=== PATIENT | female | born 1990 | race Caucasian/White ===

== ENCOUNTER 2021-07-12 10:50 | Emergency (ER) | payer OTHER, SELFPAY ==
--- NOTE | ~2021-07-12 | XR_ITS ---
EXAMINATION: XR chest 2V DATE: 07/12/2021 12:21 INDICATION: Chest discomfort. TECHNIQUE: Frontal and lateral views of the chest were obtained. COMPARISON: None. FINDINGS: The chest demonstrates clear lungs without pneumonia, pleural effusion, or pneumothorax. Th e heart size is normal. IMPRESSION: 1. No acute cardiopulmonary disease. Reviewed, dictated and finalized at location B.
--- NOTE | ~2021-07-12 | US_ITS ---
EXAMINATION: US venous doppler [facility] DATE: 07/12/2021 13:45 INDICATION: Lower limb swelling. TECHNIQUE: Grayscale ultrasound images without and with compression and Doppler ultrasound images of the bilateral lower extremity veins were obtained. COMPARISON: None. FINDINGS: The visualized portions of right common femoral vein, profunda (deep) femoral vein, femoral vein, pop liteal vein, peroneal veins, posterior tibial veins, and greater saphenous vein outflow are patent. The visualized portions of left common femoral vein, profunda femoral vein, femoral vein, popliteal v ein, peroneal veins, posterior tibial veins, and greater saphenous vein outflow are patent. IMPRESSION: 1. No deep venous thrombosis. Reviewed, dictated and finalized at location B.
--- NOTE | 2021-07-12 10:52 | ECG_ITS ---
Measurements Intervals [place] Rate: 100 P: 58 [place]: 150 QRS: 13 QRSD: 103 T: 44 QT: 337 QTc: 435 Interpretive Statements SINUS TACHYCARDIA MINOR RV CONDUCTION ABNORMALITY OTHERWISE NORMAL ECG NO PREVIOUS ECG AVAILABLE FOR COMPARISON Electronically Signed On 07-12-2021 15:26:05 CDT by Cecilio Fleming M.D.
[2021-07-12 11:08] VITALS: BP 124/86; PULSE 73; RESP 16; TEMP 36.8; O2SAT 97
[2021-07-12 11:23] VITALS: BP 132/89; PULSE 79; PULSE 81; RESP 17; O2SAT 97
[2021-07-12 12:06] LABS: Alanine Aminotransferase 76 U/L (4-35); Albumin Level 4.4 g/dL (3.5-5.1); Alkaline Phosphatase 84 U/L (38-126); Anion Gap 8 mmol/L (8-16); Aspartate Amino Transferase 58 U/L (14-36); Bilirubin,Total 0.1 mg/dL (0.2-1.3); Blood Urea Nitrogen 13 mg/dL (7-17); Calcium 8.8 mg/dL (8.4-10.2); Carbon Dioxide 26 mmol/L (22-30); Chloride 102 mmol/L (98-107); Estimated CRCL calculation 158 ml/min; Estimated Glomerular Filt Rate > 60; Glucose 124 mg/dL (65-110); Lipase 52 U/L (23-300); Sodium 136 mmol/L (137-145)
[2021-07-12 12:09] LABS: Prothrombin Time 12.6 Seconds (11.1-14.7)
[2021-07-12 12:10] LABS: Partial Thromboplastin Time 37.4 SECONDS (22.3-36.8)
[2021-07-12 12:18] LABS: Troponin I < 0.012 ng/mL (0.000-0.034)
[2021-07-12 12:59] LABS: Basophils Absolute Auto 0.1 K/mm3 (0.0-0.1); Basophils Percent Auto 0.8 % (0.2-1.2); Eosinophils Absolute Auto 0.2 K/mm3 (0-0.3); Eosinophils Percent Auto 2.3 % (0-4.4); Hematocrit 43.8 % (37.0-47.0); Hemoglobin 14.8 g/dL (12.0-15.0); Immature Granulocyte Absolute 0.03 K/mm3 (0.00-0.031); Immature Granulocyte Percent A 0.3 % (0-0.5); Lymphocytes Absolute Auto 3.07 K/mm3 (0.9-3.2); Lymphocytes Percent Auto 31.7 % (18.3-44.2); Mean Corpuscular HGB Conc 33.8 g/dl (32-36); Mean Corpuscular Volume 94.8 fl (80-100); Mean Platelet Volume 10.2 fl (7.4-10.4); Monocytes Absolute Auto 0.7 K/mm3 (0.1-0.6); Monocytes Percent Auto 7.2 % (2.6-8.5); Neutrophils Absolute Auto 5.6 K/mm3 (1.3-6.7); Neutrophils Percent Auto 57.7 % (45.5-73.1); Platelet Count Result 428 k/mm3 (150-375); Red Blood Count 4.62 M/mm3 (4.2-5.4); Red Cell Distribution Width 12.1 % (11.5-14.5); White Blood Count 9.7 K/mm3 (4.5-10.0)
[2021-07-12 13:00] VITALS: BP 115/88; PULSE 84; RESP 18; O2SAT 97
--- NOTE | 2021-07-12 14:11 | ED.GENADULT ---
HPI - General Adult General Chief complaint: Chest Pain Stated complaint: chest pain Time Seen by Provider: 07/12/21 12:02 History of Present Illness HPI narrative: Patient is a 31-year-old female who presents ER with concerns for chest pain. Symptoms occurred last week. The left-sided underarm. Going into her shoulder. Cramping in nature. She also had some central pain at that time. Symptoms occurred after she had taken a trip to [facility]. She reports when she returned she had new lower extremity edema. Her primary care doctor put her on Lasix to get rid of the edema. She reports this week some of the edema has returned. She is also having some tightness in her left lower leg. No orthopnea or hemoptysis. No past history of DVT/PE. No family history of CAD outside of her grandfather. Related Data Home Medications Medication Instructions Recorded Confirmed citalopram 20 mg PO DAILY 07/12/21 07/12/21 furosemide [Lasix] 40 mg PO PRN PRN 07/12/21 07/12/21 metformin 500 mg PO DAILY 07/12/21 07/12/21 Allergies Allergy/AdvReac Type Severity Reaction Status Date / Time Sulfa (Sulfonamide Allergy Rash Verified 07/12/21 11:25 Antibiotics) Review of Systems Review of Systems: All systems reviewed & are unremarkable except as noted in HPI and below Constitutional: Constitutional: Denies chills, Denies fever(s) and Denies weakness ENT: Denies nasal congestion and Denies sore throat Cardiovascular: Cardiovascular: Reports chest pain, Denies rapid heart rate and Reports radiating jaw, neck or arm pain Respiratory: Respiratory: Denies cough, Denies dyspnea and Denies wheezing Gastrointestinal: Gastrointestinal: Denies abdominal pain, Denies nausea and Denies vomiting Musculoskeletal: Comments: left leg tightness and bilateral edema Neurologic: Denies headache(s), Denies focal weakness and Denies numbness PMFSH Past Medical History Medical History (Updated 07/12/21 @ 14:36 by Jignesh Bowden MD) Depression Surgical History Surgical History (Updated 07/12/21 @ 14:36 by Jignesh Bowden MD) No pertinent past surgical history Social History Social History (Updated 07/12/21 @ 14:36 by Jignesh Bowden MD) Smoking status: Never smoker Exam Narrative: GENERAL: Well-appearing, well-nourished, and in no acute distress. HEAD: Normocephalic, atraumatic. ENT: Mucous membranes moist. CHEST: Clear to auscultation. No respiratory distress. HEART: Regular rate and rhythm. Normal peripheral pulses. ABDOMEN: Soft, nontender, nondistended. EXTREMITIES: Normal range of motion. No edema. SKIN: Warm, dry, no rash. NEURO: Alert and oriented x3. PSYCH: Normal mood and affect. Course Course Emergency Course: Patient informed of results. Given reassurance. Recommend anti-inflammatories for home. Troponin negative x2. No DVT on ultrasound. Vital Signs Vital signs: Vital Signs Temperature 98.2 F 07/12/21 11:08 Pulse Rate 73 07/12/21 11:08 Respiratory Rate 16 07/12/21 11:08 Blood Pressure 124/86 07/12/21 11:08 Pulse Oximetry 97 07/12/21 11:08 Temperature 98.2 F 07/12/21 11:08 Pulse Rate 84 07/12/21 13:00 Respiratory Rate 18 07/12/21 13:00 Blood Pressure 115/88 07/12/21 13:00 Pulse Oximetry 97 07/12/21 13:00 Medical Decision Making Vital Signs Vital Signs: Vital Signs Temperature 98.2 F 07/12/21 11:08 Pulse Rate 73 07/12/21 11:08 Respiratory Rate 16 07/12/21 11:08 Blood Pressure 124/86 07/12/21 11:08 Pulse Oximetry 97 07/12/21 11:08 Temperature 98.2 F 07/12/21 11:08 Pulse Rate 84 07/12/21 13:00 Respiratory Rate 18 07/12/21 13:00 Blood Pressure 115/88 07/12/21 13:00 Pulse Oximetry 97 07/12/21 13:00 Lab Data Result diagrams: 07/12/21 11:50 07/12/21 11:50 Labs: Lab Results 07/12/21 07/12/21 07/12/21 Range/Units 11:50 11:50 11:50 WBC 9.7 (4.5-10.0) K/mm3 RBC 4
[2021-07-12 14:25] LABS: Troponin I < 0.012 ng/mL (0.000-0.034)
[2021-07-12 14:59] VITALS: BP 117/93; PULSE 88; RESP 20; O2SAT 99
== END 2021-07-12 14:41 | disposition home or self-care (01) ==
PROVIDERS: Emergency Medicine; Emergency Provider Emergency Medicine; PCP Family Medicine
DX: R07.89 Other chest pain (principal); F32.A Depression, unspecified; Z79.84 Long term (current) use of oral hypoglycemic drugs; R00.0 Tachycardia, unspecified
CPT/HCPCS: 36415; 71046; 80053; 83690; 84484; 85025; 85610; 85730; 93005; 93970; 99284

== ENCOUNTER 2022-06-20 07:47 | Outpatient (CLI) | payer OTHER, SELFPAY ==
[2022-06-20 09:22] LABS: Basophils Absolute Auto 0.1 K/mm3 (0.0-0.1); Basophils Percent Auto 1.2 % (0.2-1.2); Eosinophils Absolute Auto 0.3 K/mm3 (0-0.3); Eosinophils Percent Auto 3.4 % (0-4.4); Hematocrit 41.6 % (37.0-47.0); Hemoglobin 14.1 g/dL (12.0-15.0); Immature Granulocyte Absolute 0.02 K/mm3 (0.00-0.031); Immature Granulocyte Percent A 0.3 % (0-0.5); Lymphocytes Absolute Auto 2.31 K/mm3 (0.9-3.2); Lymphocytes Percent Auto 31.8 % (18.3-44.2); Mean Corpuscular HGB Conc 33.9 g/dl (32-36); Mean Corpuscular Volume 94.3 fl (80-100); Mean Platelet Volume 10.2 fl (7.4-10.4); Monocytes Absolute Auto 0.4 K/mm3 (0.1-0.6); Monocytes Percent Auto 5.4 % (2.6-8.5); Neutrophils Absolute Auto 4.2 K/mm3 (1.3-6.7); Neutrophils Percent Auto 57.9 % (45.5-73.1); Platelet Count Result 413 k/mm3 (150-375); Red Blood Count 4.41 M/mm3 (4.2-5.4); Red Cell Distribution Width 12.1 % (11.5-14.5); White Blood Count 7.3 K/mm3 (4.5-10.0)
[2022-06-20 09:38] LABS: Alanine Aminotransferase 37 U/L (6-35); Albumin Level 4.3 g/dL (3.5-5.1); Alkaline Phosphatase 78 U/L (38-126); Anion Gap 7 mmol/L (8-16); Aspartate Amino Transferase 28 U/L (14-36); Bilirubin,Total 0.5 mg/dL (0.2-1.3); Blood Urea Nitrogen 12 mg/dL (7-17); Carbon Dioxide 27 mmol/L (22-30); Chloride 102 mmol/L (98-107); Cholesterol 192 mg/dL (0-200); Estimated Glomerular Filt Rate > 60; Glucose 122 mg/dL (65-110); HDL Direct 43 mg/dL; Sodium 136 mmol/L (137-145); Triglycerides 143 mg/dL (<150)
[2022-06-20 09:49] LABS: LDL Cholesterol Direct 111 mg/dL
[2022-06-25 04:48] LABS: FSH 5.8 mIU/mL (***); LH 11.7 mIU/mL (***)
[2022-06-25 10:23] LABS: Testosterone Total 62 ng/dL (2-45)
[2022-06-29 15:37] LABS: Estrogen 379.6 pg/mL
== END 2022-06-20 07:48 | disposition home or self-care (01) ==
LOC: ANHLAB 07:51
PROVIDERS: PCP Family Medicine; Visit Provider Family Medicine
DX: Z13.6 Encounter for screening for cardiovascular disorders (principal); N94.6 Dysmenorrhea, unspecified
CPT/HCPCS: 36415; 80053; 80061; 82672; 83001; 83002; 84403; 84443; 85025

== ENCOUNTER 2022-09-25 16:54 | Emergency (ER) | payer OTHER, SELFPAY ==
[2022-09-25 17:01] VITALS: BP 124/82; PULSE 93; RESP 16; TEMP 36.1; O2SAT 98
--- NOTE | 2022-09-25 17:14 | ED.GENADULT ---
HPI - General Adult General Chief complaint: Upper Respiratory Infection Stated complaint: Pain in ear & sinus drainage Time Seen by Provider: 09/25/22 17:06 Source: patient and RN notes reviewed Mode of arrival: ambulatory Limitations: no limitations History of Present Illness HPI narrative: Patient presents today complaining of right ear pain and postnasal drip x3 days. Denies any additional symptoms to include cough, sore throat, fever, congestion, rhinorrhea. Rates a 5/10 and has tried no medication for symptoms prior to arrival. She did try wax softening drops without relief of symptoms. Related Data Home Medications Medication Instructions Recorded Confirmed citalopram 20 mg tablet 20 mg PO DAILY 07/12/21 09/25/22 metformin 500 mg tablet 500 mg PO DAILY 07/12/21 09/25/22 spironolactone 50 mg tablet 50 mg DIRECTED 09/25/22 09/25/22 Allergies Allergy/AdvReac Type Severity Reaction Status Date / Time cephalexin [From Keflex] Allergy Intermediate Hives Verified 09/25/22 16:59 Sulfa (Sulfonamide Allergy Intermediate Hives Verified 09/25/22 17:00 Antibiotics) Review of Systems Review of Systems: CONSTITUTIONAL: Denies body aches, fever, chills, or sweats. EYES: Denies visual changes, redness, or discharge. ENT: Denies rhinorrhea, congestion, sore throat. + right ear pain, postnasal drip CARDIOVASCULAR: Denies chest pain, palpitations, or edema. RESPIRATORY: Denies cough or dyspnea. GASTROINTESTINAL: Denies abdominal pain, nausea, vomiting, or diarrhea. GENITOURINARY: Denies dysuria or hematuria. SKIN: Denies rash, itching, or wounds. MUSCULOSKELETAL: Denies back pain, joint pain, or myalgia. NEUROLOGIC: Denies headache, numbness, tingling, or weakness. PSYCH: Denies depression or anxiety. [facility] Past Medical History Medical History Depression Surgical History Surgical History No pertinent past surgical history Social History Social History Smoking status: Never smoker Comments At time of signature, I have reviewed and agree with nursing past medical, surgical, social and family history unless otherwise noted. Please see nursing chart for further information. There is no relevant family history pertinent to the presenting complaint Exam Narrative: GENERAL: Well-appearing, well-nourished, and in no acute distress. HEAD: Normocephalic, atraumatic. EYES: EOMI. No redness or drainage. Conjunctivae normal. ENT: Mucous membranes pink and moist. Nares clear. No rhinorrhea. TMs normal bilaterally. Patient has a small area to the intertragal notch that is mildly erythematous and edematous, and tender to palpation. The remainder of the ear canal appears normal. Throat normal. Uvula midline. NECK: Normal AROM. Supple. No lymphadenopathy. CHEST: No respiratory distress. Clear to auscultation. HEART: Regular rate and rhythm. No murmur appreciated. Normal peripheral pulses. EXTREMITIES: Normal range of motion. No edema. SKIN: Warm, dry, no rash. Capillary refill normal. Normal skin turgor. NEURO: No focal deficits. Alert and oriented x3. Gait steady. PSYCH: Normal affect. No signs of depression or anxiety. Course Course Level of Care: Express Care Visit Vital Signs Vital signs: Vital Signs Temperature 97 F L 09/25/22 17:01 Pulse Rate 93 09/25/22 17:01 Respiratory Rate 16 09/25/22 17:01 Blood Pressure 124/82 09/25/22 17:01 Pulse Oximetry 98 09/25/22 17:01 Temperature 97 F L 09/25/22 17:01 Pulse Rate 93 09/25/22 17:01 Respiratory Rate 16 09/25/22 17:01 Blood Pressure 124/82 09/25/22 17:01 Pulse Oximetry 98 09/25/22 17:01 Reviewed. Pt has been instructed to follow up with her PCP regarding her elevated blood pressure today. Medical Decision Making MDM Lindaati
== END 2022-09-25 17:26 | disposition home or self-care (01) ==
PROVIDERS: Emergency Provider Nurse Practitioner
DX: H60.11 Cellulitis of right external ear (principal); R09.82 Postnasal drip; F32.A Depression, unspecified
CPT/HCPCS: 99213; G0463

== ENCOUNTER 2022-10-26 06:55 | Emergency (ER) | payer OTHER, SELFPAY ==
[2022-10-26] VITALS (13 sets, daily range): BP systolic 123–144; BP diastolic 68–92; PULSE 79; RESP 18; TEMP 36.2; O2SAT 95–99
--- NOTE | ~2022-10-26 | CT_ITS ---
EXAMINATION: CT abdomen pelvis wo con DATE: 10/26/2022 08:42 INDICATION: Right flank pain and hematuria TECHNIQUE: Computed tomography (CT) of the abdomen and pelvis was performed without intravenous contr ast. Automated exposure control and iterative reconstruction technique were employed. The dose-length product was 1621.85 mGy-cm. COMPARISON: None FINDINGS: Lung bases are clear. Heart size is normal. No pericardial or pleural effusion. Diffuse hepatic steat osis with peripheral regions of focal sparing including along the reuben hepatis and gallbladder fossa . Gallbladder, spleen, pancreas, bilateral adrenal glands and left kidney and ureter are normal. 2 mm stone at the right ureterovesicular junction with mild right hydroureteronephrosis. No other urolith iasis. Bladder, anteverted uterus and bilateral adnexa are unremarkable. Bowels including the appendi x are normal. Small fat-containing umbilical hernia. No free intraperitoneal gas or fluid. No patholo gically enlarged abdominal or pelvic lymphadenopathy. Bones are unremarkable. IMPRESSION: 1. At least partially obstructing 2 mm stone at the right ureterovesicular junction with mild right h ydroureteronephrosis. Reviewed, dictated and finalized at location A. IMPRESSION: 1. At least partially obstructing 2 mm stone at the right ureterovesicular junc tion with mild right hydroureteronephrosis.
--- NOTE | 2022-10-26 07:26 | ED.ABDPAIN ---
HPI - Abdominal Pain General Chief Complaint: Abdominal Pain Stated Complaint: R flank pain Time Seen by Provider: 10/26/22 06:57 History of Present Illness HPI narrative: 32-year-old female presented to the ED for evaluation of right flank pain. Patient reports that approximately 3:30 AM she had onset of right flank pain that does radiate to her right lower quadrant. Patient did have associated nausea and vomiting. Patient has no prior history of kidney stones and denies any urinary symptoms. Patient denies any associated chest pain or shortness of breath. Related Data Home Medications Medication Instructions Recorded Confirmed citalopram 20 mg tablet 20 mg PO DAILY 07/12/21 09/25/22 metformin 500 mg tablet 500 mg PO DAILY 07/12/21 09/25/22 spironolactone 50 mg tablet 50 mg DIRECTED 09/25/22 09/25/22 Allergies Allergy/AdvReac Type Severity Reaction Status Date / Time cephalexin [From Keflex] Allergy Intermediate Hives Verified 09/25/22 16:59 Sulfa (Sulfonamide Allergy Intermediate Hives Verified 09/25/22 17:00 Antibiotics) Review of Systems Review of Systems: All systems reviewed & are unremarkable except as noted in HPI and below PMFSH Past Medical History Medical History Depression Surgical History Surgical History No pertinent past surgical history Social History Social History Smoking status: Never smoker Exam Narrative: APPEARANCE: Well appearing, no pain, no distress, well-nourished. HEAD: normocephalic, atraumatic. EYES: PERRLA/EOMI, conjunctivae clear. NOSE: Normal no drainage NECK: Supple. No adenopathy, no masses. RESPIRATORY: Airway patent, respirations nonlabored. Clear to auscultation bilaterally, no rales, rhonchi, wheezing. CARDIOVASCULAR: Regular rate and rhythm without murmurs rubs or gallops. ABDOMINAL: Soft, nontender, nondistended, normal bowel sounds MUSCULOSKELETAL: Moves all extremities. Strength/ROM intact, No edema, No calf tenderness. NEURO: Alert. Cranial nerves II through XII intact. Grossly intact SKIN: Warm, dry. Normal Color Course Course Emergency Course: 32-year-old female presented the ED for evaluation of right flank pain. Patient declined any medication for pain control but patient will be treated with medication for nausea. Patient and family are updated on the plan for labs and further work-up. CT scan did show a distal ureteral calculi. Patient was within the results of her imaging. Patient was provided Zofran [place] and Flomax and urology follow-up as outpatient. Vital Signs Vital signs: Vital Signs Temperature 97.1 F L 10/26/22 06:59 Pulse Rate 79 10/26/22 06:59 Respiratory Rate 18 10/26/22 06:59 Blood Pressure 142/86 H 10/26/22 06:59 Pulse Oximetry 99 10/26/22 06:59 Oxygen Delivery Room Air 10/26/22 06:59 Temperature 97.1 F L 10/26/22 06:59 Pulse Rate 79 10/26/22 06:59 Respiratory Rate 18 10/26/22 06:59 Blood Pressure 131/76 10/26/22 09:16 Pulse Oximetry 96 10/26/22 09:01 Oxygen Delivery Room Air 10/26/22 06:59 MDM - Abdominal Pain Differential Diagnosis Differential diagnosis: Likely abdominal pain, acute appendicitis, calculus of kidney, constipation, diverticulitis, gastroenteritis, pancreatitis and small bowel obstruction Lab Data Attestation: I reviewed the patient's lab results. 10/26/22 07:40 10/26/22 07:40 Labs: Lab Results 10/26/22 10/26/22 Range/Units 07:40 07:41 WBC 9.7 (4.5-10.0) K/mm3 RBC 4.32 (4.2-5.4) M/mm3 Hgb 13.8 (12.0-15.0) g/dL Hct 41.1 (37.0-47.0) % MCV 95.1 (80-100) fl MCH 31.9 (26-34) pg MCHC 33.6 (32-36) g/dl RDW 12.4 (11.5-14.5) % Plt Count 379 H (150-375) k/mm3 MPV 10.0 (7.4-10.4) fl Immature Gran % (Au
[2022-10-26 07:49] LABS: Basophils Absolute Auto 0.1 K/mm3 (0.0-0.1); Basophils Percent Auto 0.6 % (0.2-1.2); Eosinophils Absolute Auto 0.1 K/mm3 (0-0.3); Eosinophils Percent Auto 0.8 % (0-4.4); Hematocrit 41.1 % (37.0-47.0); Hemoglobin 13.8 g/dL (12.0-15.0); Immature Granulocyte Absolute 0.03 K/mm3 (0.00-0.031); Immature Granulocyte Percent A 0.3 % (0-0.5); Lymphocytes Absolute Auto 1.83 K/mm3 (0.9-3.2); Lymphocytes Percent Auto 18.8 % (18.3-44.2); Mean Corpuscular HGB Conc 33.6 g/dl (32-36); Mean Corpuscular Hemoglobin 31.9 pg (26-34); Mean Corpuscular Volume 95.1 fl (80-100); Monocytes Absolute Auto 0.4 K/mm3 (0.1-0.6); Monocytes Percent Auto 4.5 % (2.6-8.5); Neutrophils Absolute Auto 7.3 K/mm3 (1.3-6.7); Platelet Count Result 379 k/mm3 (150-375); Red Blood Count 4.32 M/mm3 (4.2-5.4); Red Cell Distribution Width 12.4 % (11.5-14.5); White Blood Count 9.7 K/mm3 (4.5-10.0)
[2022-10-26] MEDS: ONDANSETRON INJ 4 MG/2 ML VIAL IV PUSH (07:51)
[2022-10-26 07:56] LABS: Appearance Urine Cloudy (Clear); Bacteria Urine 2+ /hpf; Bilirubin Urine Negative (Negative); Blood Urine 3+ (Negative); Color Urine Yellow (Yellow); Glucose Urine UA Negative (Negative); Ketones Urine Negative (Negative); Leukocyte Esterase Ur Negative LEU/UL (Negative); Nitrate Urine Negative (Negative); Non Pathogenic Casts 0-2; Protein Urine 2+ mg/dL (Negative); RBC Urine 21-50 /hpf (0-2); Specific Grav Ur 1.027 (1.001-1.035); Squamous Epithelial Cell Urine Moderate /hpf (Few)
[2022-10-26 07:57] LABS: Add Urine Microscopic? YES
[2022-10-26 08:00] LABS: Alanine Aminotransferase 53 U/L (6-35); Albumin Level 4.5 g/dL (3.5-5.1); Alkaline Phosphatase 73 U/L (38-126); Anion Gap 11 mmol/L (8-16); Aspartate Amino Transferase 35 U/L (14-36); Bilirubin,Total 0.2 mg/dL (0.2-1.3); Blood Urea Nitrogen 15 mg/dL (7-17); Calcium 9.1 mg/dL (8.4-10.2); Carbon Dioxide 23 mmol/L (22-30); Chloride 103 mmol/L (98-107); Estimated CRCL calculation 156 ml/min; Estimated Glomerular Filt Rate > 60; Glucose 168 mg/dL (65-110); Potassium 4.3 mmol/L (3.4-5.0); Sodium 137 mmol/L (137-145)
[2022-10-26] MEDS: TAMSULOSIN HCL 0.4 MG CAPSULE PO (09:13)
== END 2022-10-26 09:45 | disposition home or self-care (01) ==
PROVIDERS: Emergency Provider Emergency Medicine; PCP Family Medicine
DX: N13.2 Hydronephrosis with renal and ureteral calculous obstruction (principal); F32.A Depression, unspecified; Z79.84 Long term (current) use of oral hypoglycemic drugs
CPT/HCPCS: 36415; 74176; 80053; 81001; 81025; 85025; 87086; 87088; 96374; 99284; A9270; J2405

== ENCOUNTER 2023-06-01 08:21 | Outpatient (CLI) | payer OTHER, SELFPAY ==
[2023-06-01 09:09] LABS: Basophils Absolute Auto 0.1 K/mm3 (0.0-0.1); Basophils Percent Auto 1.1 % (0.2-1.2); Eosinophils Absolute Auto 0.3 K/mm3 (0-0.3); Eosinophils Percent Auto 3.7 % (0-4.4); Hematocrit 44.5 % (37.0-47.0); Hemoglobin 14.6 g/dL (12.0-15.0); Immature Granulocyte Absolute 0.02 K/mm3 (0.00-0.031); Immature Granulocyte Percent A 0.3 % (0-0.5); Lymphocytes Absolute Auto 2.45 K/mm3 (0.9-3.2); Lymphocytes Percent Auto 31.1 % (18.3-44.2); Mean Corpuscular HGB Conc 32.8 g/dl (32-36); Mean Corpuscular Hemoglobin 31.1 pg (26-34); Mean Corpuscular Volume 94.9 fl (80-100); Mean Platelet Volume 10.7 fl (7.4-10.4); Monocytes Absolute Auto 0.4 K/mm3 (0.1-0.6); Monocytes Percent Auto 4.7 % (2.6-8.5); Neutrophils Absolute Auto 4.7 K/mm3 (1.3-6.7); Neutrophils Percent Auto 59.1 % (45.5-73.1); Platelet Count Result 386 k/mm3 (150-375); Red Blood Count 4.69 M/mm3 (4.2-5.4); Red Cell Distribution Width 12.6 % (11.5-14.5); White Blood Count 7.9 K/mm3 (4.5-10.0)
[2023-06-01 09:20] LABS: Alanine Aminotransferase 55 U/L (6-35); Albumin Level 4.7 g/dL (3.5-5.1); Alkaline Phosphatase 88 U/L (38-126); Anion Gap 8 mmol/L (8-16); Aspartate Amino Transferase 36 U/L (14-36); Bilirubin,Total 0.5 mg/dL (0.2-1.3); Blood Urea Nitrogen 12 mg/dL (7-17); Calcium 9.7 mg/dL (8.4-10.2); Carbon Dioxide 26 mmol/L (22-30); Chloride 103 mmol/L (98-107); Cholesterol 182 mg/dL (0-200); Estimated Glomerular Filt Rate > 60; Glucose 130 mg/dL (65-110); HDL Direct 48 mg/dL; Sodium 137 mmol/L (137-145); Triglycerides 153 mg/dL (<150)
[2023-06-01 09:25] LABS: Hemoglobin A1C 6.4 % (<5.7)
[2023-06-01 09:31] LABS: LDL Cholesterol Direct 101 mg/dL
[2023-06-01 10:15] LABS: Vitamin D 25 Hydroxy < 12.8 ng/mL
== END 2023-06-01 08:22 | disposition home or self-care (01) ==
LOC: ANHLAB 08:22
PROVIDERS: PCP Family Medicine; Visit Provider Family Medicine
DX: E11.9 Type 2 diabetes mellitus without complications (principal); E78.2 Mixed hyperlipidemia; N92.1 Excessive and frequent menstruation with irregular cycle; E55.9 Vitamin D deficiency, unspecified; Z00.00 Encounter for general adult medical examination without abnormal findings
CPT/HCPCS: 36415; 80053; 80061; 82306; 83036; 84443; 85025

== ENCOUNTER 2023-12-07 09:51 | Outpatient (CLI) | payer OTHER, SELFPAY ==
[2023-12-07 10:11] LABS: Basophils Absolute Auto 0.1 K/mm3 (0.0-0.1); Basophils Percent Auto 1.1 % (0.2-1.2); Eosinophils Absolute Auto 0.2 K/mm3 (0-0.3); Eosinophils Percent Auto 1.8 % (0-4.4); Hematocrit 42.2 % (37.0-47.0); Hemoglobin 13.8 g/dL (12.0-15.0); Immature Granulocyte Absolute 0.02 K/mm3 (0.00-0.031); Immature Granulocyte Percent A 0.2 % (0-0.5); Lymphocytes Absolute Auto 2.55 K/mm3 (0.9-3.2); Lymphocytes Percent Auto 30.5 % (18.3-44.2); Mean Corpuscular HGB Conc 32.7 g/dl (32-36); Mean Corpuscular Hemoglobin 31.6 pg (26-34); Mean Corpuscular Volume 96.6 fl (80-100); Mean Platelet Volume 9.8 fl (7.4-10.4); Monocytes Absolute Auto 0.5 K/mm3 (0.1-0.6); Monocytes Percent Auto 5.4 % (2.6-8.5); Neutrophils Absolute Auto 5.1 K/mm3 (1.3-6.7); Platelet Count Result 429 k/mm3 (150-375); Red Blood Count 4.37 M/mm3 (4.2-5.4); Red Cell Distribution Width 12.7 % (11.5-14.5); White Blood Count 8.4 K/mm3 (4.5-10.0)
[2023-12-07 10:25] LABS: Alanine Aminotransferase 39 U/L (6-35); Albumin Level 4.7 g/dL (3.5-5.1); Alkaline Phosphatase 71 U/L (38-126); Anion Gap 12 mmol/L (4-12); Aspartate Amino Transferase 34 U/L (14-36); Bilirubin,Total 0.4 mg/dL (0.2-1.3); Blood Urea Nitrogen 8 mg/dL (7-17); Calcium 9.1 mg/dL (8.4-10.2); Carbon Dioxide 21 mmol/L (22-30); Chloride 105 mmol/L (98-107); Estimated Glomerular Filt Rate > 60; Glucose 86 mg/dL (65-110); Potassium 4.3 mmol/L (3.4-5.0); Sodium 138 mmol/L (137-145)
[2023-12-07 10:54] LABS: Vitamin D 25 Hydroxy 35.1 ng/mL
[2023-12-07 11:28] LABS: Hemoglobin A1C 5.5 % (<5.7)
== END 2023-12-07 09:52 | disposition home or self-care (01) ==
PROVIDERS: PCP Family Medicine; Visit Provider Family Medicine
DX: E55.9 Vitamin D deficiency, unspecified (principal); E28.2 Polycystic ovarian syndrome; R73.03 Prediabetes; D75.839 Thrombocytosis, unspecified
CPT/HCPCS: 36415; 80053; 82306; 83036; 85025

== ENCOUNTER 2023-12-24 09:32 | Outpatient (CLI) | payer OTHER, SELFPAY ==
--- NOTE | ~2023-12-24 | US_ITS ---
Limited Abdominal Sonogram: Real-time sonographic imaging of the right upper quadrant was performed. Clinical History: Abnormal liver enzyme levels Findings: The liver appears echogenic, with no evidence of mass lesion or bile duct dilatation. Prob able focal fatty sparing adjacent to the gallbladder fossa. Main portal vein demonstrates normal dire ction of flow. The gallbladder is well distended, and appears normal with no evidence of gallstone or wall thickening. The common bile duct measures 3 mm. The visualized pancreas, aorta, and IVC are un remarkable. Impression: Diffuse fatty infiltration of the liver, with probable focal fatty sparing adjacent to the gallbladde r fossa. Reviewed, dictated and finalized at location M. Impression: Diffuse fatty infiltration of the liver, with probable focal fatty sparing kiya cent to the gallbladder fossa.
== END 2023-12-24 09:33 | disposition home or self-care (01) ==
LOC: ANHIMG 09:33
PROVIDERS: PCP Family Medicine; Visit Provider Student in an Organized Health Care Education/Training Program
DX: K76.0 Fatty (change of) liver, not elsewhere classified (principal); R74.01 Elevation of levels of liver transaminase levels; R79.89 Other specified abnormal findings of blood chemistry
CPT/HCPCS: 76705

== ENCOUNTER 2024-02-11 15:47 | Outpatient (CLI) | payer OTHER, SELFPAY ==
[2024-02-11 16:03] LABS: Basophils Absolute Auto 0.1 K/mm3 (0.0-0.1); Basophils Percent Auto 1.1 % (0.2-1.2); Eosinophils Absolute Auto 0.3 K/mm3 (0-0.3); Eosinophils Percent Auto 2.7 % (0-4.4); Hematocrit 40.2 % (37.0-47.0); Hemoglobin 13.6 g/dL (12.0-15.0); Immature Granulocyte Absolute 0.01 K/mm3 (0.00-0.031); Immature Granulocyte Percent A 0.1 % (0-0.5); Lymphocytes Absolute Auto 3.32 K/mm3 (0.9-3.2); Lymphocytes Percent Auto 31.9 % (18.3-44.2); Mean Corpuscular HGB Conc 33.8 g/dl (32-36); Mean Corpuscular Hemoglobin 31.4 pg (26-34); Mean Corpuscular Volume 92.8 fl (80-100); Mean Platelet Volume 10.4 fl (7.4-10.4); Monocytes Absolute Auto 0.6 K/mm3 (0.1-0.6); Neutrophils Absolute Auto 6.1 K/mm3 (1.3-6.7); Neutrophils Percent Auto 58.2 % (45.5-73.1); Platelet Count Result 383 k/mm3 (150-375); Red Blood Count 4.33 M/mm3 (4.2-5.4); Red Cell Distribution Width 12.9 % (11.5-14.5); White Blood Count 10.4 K/mm3 (4.5-10.0)
[2024-02-11 16:45] LABS: Alanine Aminotransferase 37 U/L (6-35); Albumin Level 4.7 g/dL (3.5-5.1); Alkaline Phosphatase 59 U/L (38-126); Anion Gap 9 mmol/L (4-12); Aspartate Amino Transferase 31 U/L (14-36); Bilirubin,Total 0.5 mg/dL (0.2-1.3); Blood Urea Nitrogen 11 mg/dL (7-17); CRP 0.7 mg/dL (<1.0); Calcium 9.3 mg/dL (8.4-10.2); Carbon Dioxide 24 mmol/L (22-30); Chloride 106 mmol/L (98-107); Estimated Glomerular Filt Rate > 60; Glucose 90 mg/dL (65-110); Sodium 139 mmol/L (137-145)
[2024-02-11 16:49] LABS: Iron 51 ug/dL (37-170)
[2024-02-11 16:58] LABS: Percent Iron Saturation 14 % (20-50)
[2024-02-11 17:39] LABS: Erythrocyte Sedimentation Rate 54 mm/hr (0-20)
== END 2024-02-11 15:48 | disposition home or self-care (01) ==
LOC: ANHLAB 15:48
PROVIDERS: PCP Family Medicine; Visit Provider Internal Medicine Hematology & Oncology
DX: D64.9 Anemia, unspecified (principal); D75.838 Other thrombocytosis
CPT/HCPCS: 36415; 80053; 82728; 83540; 83550; 85025; 85652; 86140

== ENCOUNTER 2024-05-24 17:07 | Emergency (ER) | payer OTHER, SELFPAY ==
[2024-05-24 17:15] VITALS: BP 112/74; PULSE 79; RESP 16; TEMP 36.4; O2SAT 100
--- NOTE | 2024-05-24 17:49 | ED.URI ---
HPI - URI/Sore Throat General Chief Complaint: Upper Respiratory Infection Stated Complaint: sinus pressure,drainage, ears feel clogged Time Seen by Provider: 05/24/24 17:50 Source: patient, RN notes reviewed and old records reviewed Mode of arrival: ambulatory Limitations: no limitations History of Present Illness HPI Narrative: 34-year-old female presents to the [facility] with sinus pressure ears clogged patient reports symptoms for over 2 weeks. Appointment was positive for flu a couple weeks ago, she had similar symptoms. Related Data Allergies Allergy/AdvReac Type Severity Reaction Status Date / Time cephalexin (From Keflex) Allergy Intermediate Hives Verified 05/24/24 17:11 Sulfa (Sulfonamide Allergy Intermediate Hives Verified 05/24/24 17:11 Antibiotics) Review of Systems Review of Systems: All systems reviewed & are unremarkable except as noted in HPI and below Constitutional: Constitutional: Reports no additional constitutional complaints ENT: Reports as per HPI, Reports nasal congestion, Reports nasal discharge, Reports sinus pressure and Reports other (Postnasal drainage) Cardiovascular: Cardiovascular: Reports no additional cardiovascular complaints, Denies chest pain and Denies dyspnea Respiratory: Respiratory: Reports no additional respiratory complaints, Denies chest congestion, Denies cough and Denies dyspnea Musculoskeletal: Musculoskeletal: Reports no additional musculoskeletal complaints Integumentary/Breasts: Skin/Breast: Reports system reviewed and no additional complaints, except as docu PMFSH Past Medical History Medical History Thrombocytosis PCOS (polycystic ovarian syndrome) Anxiety Depression Surgical History Surgical History No pertinent past surgical history Family History Family History Father Diabetes mellitus Hypertension Mother Depression Anxiety Sibling Asthma Depression Anxiety Grandparent Hypertension Diabetes mellitus Anxiety Depression Heart disease Cerebrovascular accident Social History Social History Smoking status: Never smoker Second hand tobacco smoke exposure: No Alcohol intake: current Alcohol use details: 1 x month Substance use: never Substance use type: does not use Do You Feel Safe in your Home?: Yes Lack of Transportation: No Lack of Food: Never True Current Housing: I Have Housing Concerned About Future Housing: No Difficulty Paying Gas/Electric Bills: No Difficulty Paying for Meds: No Currently Unemployed: No Education: High School Diploma/GED Living arrangements: with family Occupation/Education: occupation 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 There is no relevant family history pertinent to the patient complaint. Exam Const: General: cooperative, healthy appearing, comfortable, no acute distress, well developed, alert and well nourished Nutritional Appearance: well nourished Orientation/consciousness: patient oriented x3 Limitations: no limitations HENMT: Head: normal to inspection Ears: hearing grossly normal bilaterally, external ears normal, TM's normal bilaterally, EAC's normal, mastoids normal and no periauricular adenopathy Face and sinus: face symmetric, no abrasions, no crepitus, no erythema, no fluctuance and sinus tenderness frontal and maxillary Mouth: Yes Normal oral and palatal mucosa present, Yes lip normal, Yes tongue normal and Yes moist mucous membranes Throat: posterior oropharynx normal, tonsils normal, uvula midline and no uvular edema Eyes: General: appearance normal, both eyes and all related structures Alignment and Position: alignment normal Neck: Neck: normal visual inspection, full ROM, no lymphadenopathy and no meningeal signs Chest: Chest palpation & inspection: normal inspection of the chest Resp: Effort & Inspection: normal respiratory effort and able to speak in complete sentences Auscultation: clear to auscultation bilaterally, no crackles, no rales, no rhonchi and no wheezes Cardio: Rate: regular rate Skin: General skin exam: normal color and no rashes or lesions noted Neuro: General: patient oriented x3, gait normal, moves all extremities and no meningeal signs Cognition (Neuro): normal cognition Speech: normal speech Gait exam (Neuro): Normal gait present Extrem: General: normal to inspection, full ROM, capillary refill normal and normal gait Psych: Appearance: grossly normal and well kempt Mental Status: mental status grossly normal Speech and movement: Normal speech and movement present and Clear speech present Affect: normal affect Attitude: cooperative Course Course Level of Care: Express Care Visit Vital Signs Vital signs: Vital Signs Temperature 97.6 F 05/24/24 17:15 Pulse Rate 79 05/24/24 17:15 Respiratory Rate 16 05/24/24 17:15 Blood Pressure 112/74 05/24/24 17:15 Pulse Oximetry 100 05/24/24 17:15 Oxygen Delivery Room Air 05/24/24 17:15 Temperature 97.6 F 05/24/24 17:15 Pulse Rate 79 05/24/24 17:15 Respiratory Rate 16 05/24/24 17:15 Blood Pressure 112/74 05/24/24 17:15 Pulse Oximetry 100 05/24/24 17:15 Oxygen Delivery Room Air 05/24/24 17:15 Reviewed MDM - URI/Sore Throat MDM Narrative Medical decision making narrative: Patient sitting comfortably in exam room. Nontoxic, vitals stable. Patient in no acute distress. Patient presents with 2 week history of sinus pain and pressure post viral infection, most likely flu Patient with continued symptoms of pain and pressure to the sinuses Discussed [id number] treatments. Due to length of time will prescribe doxycycline. Discussed with patient that if this is viral the doxycycline will not do much of anything. Discussed the importance of nasal irrigation as well as nasal spray Flonase. Patient is appropriate for outpatient treatment and follow-up Discharge instructions reviewed with patient, as well as provided in writing per nursing staff. The instructions also include specific and strict return/GO TO THE ER as well as f/u information. All questions have been answered, and the patient deny any further questions with discharge and discharge plan. Some parts of this dictation were generated by voice recognition software and may contain typographical and/or grammatical inaccuracies. Differential Diagnosis Differential diagnosis: Likely upper respiratory infection, otitis media, sinusitis, viral infection, bronchitis, influenza and pharyngitis Critical Care Time Critical Care Time Critical Care Time: No Discharge Plan Discharge Clinical Impression: Sinusitis Qualifiers: Sinusitis location: pansinusitis Chronicity: acute Recurrence: not specified as recurrent Qualified Code(s): J01.40 - Acute pansinusitis, unspecified Patient Disposition: Home, Self-Care Condition: Stable Instructions: Antibiotic Form, Sinusitis (ED) Additional Instructions: It is very important to treat your symptoms. Drink plenty of water, Gatorade, Pedialyte, ice pops or Jell-O. -Alternate Tylenol and Motrin per package directions for fever or pain. You can alternate every 4 hours -Antihistamine medication such as Zyrtec/Claritin/Merle during the day can help improve symptoms. -doing daily nasal irrigations can help relieve pressure your sinuses. Things like a Neti pot -Use Flonase twice a day for 5 days then daily to help reduce the inflammation and dry up your sinuses. -You can also use Mucinex. Be sure to drink plenty of water with this medication at least 8 ounces with every dose and it is important to drink 8 to 10 glasses of water per day. Water is a natural decongestant -Eat and drink things that are easy to swallow, like tea or soup, or popsicles. -Oral rinses such as: Salt water gargles and/or may use topical anesthetic (eg. Chloraseptic spray) or lozenges to relieve dryness or throat pain). -Frequent hand washing or hand tube bender hand is one of the best ways to prevent spread of infection. -Using a vaporizer or humidifier at night will also help thin secretions and help with coughing up phlegm. -Follow up with primary care provider in 7-10 days if condition is not improving - For new or worsening symptoms go directly to the nearest ER Patient Language: Kosovan Prescriptions: New doxycycline monohydrate 100 mg tablet 100 mg PO BID Qty: 14 0RF No Action metformin 500 mg tablet extended release 24 hr 500 mg PO BID Qty: 180 1RF citalopram 20 mg tablet 20 mg PO DAILY Qty: 90 1RF spironolactone 25 mg tablet 25 mg PO DAILY Qty: 90 0RF Ozempic 2 mg/dose (8 mg/3 mL) pen injector 2 mg subcut WEEKLY Qty: 3 3RF ergocalciferol (vitamin D2) [Vitamin D2] 1,250 mcg (50,000 unit) capsule 1,250 mcg PO WEEKLY Qty: 12 1RF Follow-up/Referrals: Kate Luna MD [Primary Care Provider] - Time of Disposition: 17:58
== END 2024-05-24 18:10 | disposition home or self-care (01) ==
PROVIDERS: Emergency Provider Nurse Practitioner; PCP Family Medicine
DX: J01.40 Acute pansinusitis, unspecified (principal); F41.8 Other specified anxiety disorders
CPT/HCPCS: 99213; G0463

== ENCOUNTER 2024-06-28 09:04 | Outpatient (CLI) | payer OTHER, SELFPAY ==
--- OUTSIDE RECORDS SUMMARY | 2024-06-28 09:43 | XMS_ITS | Clinical Summary ---
Author Organization [facility] Address [address] [place] [address] Phone Care Team Providers Care Board Turner Name Role Phone Unavailable Unavailable Unavailable Reason for Visit and Chief Complaint RX ISSUE/REFILL Problems Includes: Problems addressed during this encounter and other active Problems All Visits Onset Date Resolved Date Provider Condition S tatus Anxiety Disorder Nos 05/28/2010 ANGEL MACARIO MD Active Last Documented On 01/12/2023 11:32AM ; [facility] Note: Unchanged Plan of Treatment No Plan of Treatment Recorded Assessments Includes: Assessments from this encounter No Assessments Recorded Medical Equipment - Implanted Devices Includes: Current Devices No Medical Equipment Recorded Medications Includes: Medications discussed during this encounter and other current Medications New / Renewed during this visit ANGEL MACARIO MD on 07/16/2022 Spironolactone 50 MG Oral Tablet Provider: ANGEL Carrera 30 day supply: 30 each, 2 refills Diagnosis: Polycystic ovarian syndrome One tablet daily Pharmacy: [facility], [id number] - Last Documented On 01/12/2023 11:24AM By Carolyn ASHBY ; [facility] Current Medications (continue as prescribed) CeleXA 20 MG Oral Tablet 01/12/2023 Provider: NOE MACARIO MD Diagnosis: Anxiety disorder , unspecified 1 1/2 tab PO qd. Last Documented On 11:54AM By ANGEL MACARIO MD ; [facility] Lisdexamfetamine Dimesylate 30 MG Oral Capsule 01/12/2023 Provider: ANGEL Carrera Diagnosis: One tablet daily Last Documented On 10/23/202 3 11:53AM By ANGEL MACARIO MD ; [facility] metFORMIN HCl 500 MG Oral Tablet 06/18/2022 Provider: ANGEL Carrera Diagnosis: Polycystic ovari an syndrome 2 BID Last Documented On 3 4:13PM By ANGEL MACARIO MD ; [facility] Medications Administered Includes: Administered Medications from this encounter No Administered Medications Recorded Results Includes: Results discussed during this encounter No Results Recorded For Specified Dates History of Present Illness Includes: History of Present Illness from this encounter No History of Present Illness Recorded Social History No Social History Recorded - Smoking Status Unknown Medical History Includes: Medical History addressed during this encounter No Medical History Recorded Family History Includes: Family History addressed during this encounter No Family History Recorded Review of Systems Includes: Review of Systems from this encounter No Review of Systems Recorded Mental Status Includes: Mental Status from this encounter No Mental Status Recorded Functional Status Includes: Functional Status from this encounter No Functional Status Recorded Physical Exam Includes: Physical Exam from this encounter No Physical Exam Recorded Allergies Includes: Active Allergies Substance Type Reaction Onset Date Resolved Date Statu s Keflex Allergy 07/14/2008 Active Last Documented On 3 11:24AM ; [facility] Bactrim Allergy 07/14/2008 Active Last Documented On 3 11:24AM ; [facility] Encounters Encounter Provider Location Date Check-In Time Check-Out Time Diagnosis RX ISSUE/REFILL ANGEL MACARIO MD 07/16/2022 10:26AM 11:59PM Insurance Includes: Active Insurance Policies Plan Name Member ID Group # Subscriber Relationship Effect sharla Dates 1 - [facility] [id number] JASON MARTE Self Clinical Notes Includes: Clinical Notes from this encounter No Clinical Notes Recorded
--- OUTSIDE RECORDS SUMMARY | 2024-06-28 09:43 | XMS_ITS | Clinical Summary ---
Author Organization [facility] Address [address] [place] [address] Care Team Providers Care Glass Novelty Maker Name Role Phone Fina Bowles MD Primary Care Provider [phone] Allergies Active Allergy Reactions Criticality Noted Date Comments Cephalexin Hives High 02/11/2024 Sulfamethoxazole-Trimethoprim Hives High 2023 Medications Ozempic 2 mg/dose (8 mg/3 mL) Pen Injector ADMINISTER 2 MG UNDER THE SKIN WEEKLY Active metFORMIN (GLUCOPHAGE XR) 500 mg Extended Release 24 hour tablet Take 1 Tablet by mouth 2 times daily. 4 Active spironolactone (ALDACTONE) 25 mg tablet Take 1 Tablet by mouth daily. Active citalopram (CeleXA) 20 mg tablet Take 20 mg by mouth daily. Active cholecalciferol 1,250 mcg (50,000 unit) Capsule Take 50,000 Units by mouth every 7 days. Active Active Problems No known active problems Encounters Date Type Department Care Team Description 06/08/2024 External Device Data [facility]STRACTION Provider, Abstract 06/08/2024 External Device Data [facility] Provider, Abstract 05/28/2024 External Device Data [facility] Provider, Abstract 05/27/2024 External Device Data [facility] Provider, Abstract 05/25/2024 External Device Data [facility] Provider, Abstract 05/10/2024 External Device Data [facility]CTION Provider, Abstract 04/19/2024 External Device Data [facility]STRACTION Provider, Abstract 04/13/2024 External Device Data [facility]STRACTION Provider, Abstract 04/13/2024 External Device Data [facility]STRACTION Provider, Abstract from Last 3 Months Family History Medical History Relation Name Comments No Known Problems Brother Diabetes Father Hemochromatosis Father Hyperlipidemia Mother Relation Name Status Comments Brother Alive Father Alive Mother Alive Social History Tobacco Use Types Packs/Day Years Used Date Smoking Tobacco: Never Tobacco Cessation:Counseling Given: Not Answered Alcohol Use Standard Drinks/Week Comments Yes 0 (1 standard drink = 0.6 oz pur e alcohol) Ocassionally Comments Unknown Sex and Gender Information Value Date Recorded Sex Assigned at Female 02/15/2024 5:10 PM WALL TAPER HELPER Legal Sex Female 11:44 AM CDT Gender Identity Female 02/15/2024 5:10 PM WALL TAPER HELPER Sexual Orientation Not on file Last Filed Vital Signs Vital Sign Reading Time Taken Comments Blood Pressure 105/72 03/01/2024 3:53 PM WALL TAPER HELPER Pulse 94 03/01/2024 3:53 PM WALL TAPER HELPER Temperature 36.6 C (97.8 F) 03/01/2024 3:53 PM WALL TAPER HELPER Respiratory Rate 16 03/01/2024 3:53 PM WALL TAPER HELPER Oxygen Saturation 95% 03/01/2024 3:53 PM WALL TAPER HELPER Inhaled Oxygen Concentration - - Weight 112.5 kg (248 lb) 03/01/2024 3:53 PM WALL TAPER HELPER Height 162.6 cm (5' 4 ) 02/11/2024 3:13 PM WALL TAPER HELPER Body Mass Index 42.57 02/11/2024 3:13 PM WALL TAPER HELPER Plan of Treatment Upcoming Encounters Date Type Department Care Team (Late st Contact Info) Description 07/04/2024 3:45 PM CDT Office Visit [facility] Oncology and Hematology - [place] [address] [facility] [address] [place] [address] Suraj Denise MD [address] [place] [address] Health Maintenance Due Date Last Done Comments Pre-Diabetes and Diabetes Screening 1989 DTAP/TDAP/TD VACCINES (1 - Tdap) 02/15/2008 HEPATITIS B VACCINES (1 of 3 - 19+ 3-dose series) 02/15/2008 HPV/Cotest (21-29) 2010 CERVICAL CANCER SCREENING 2019 HPV/Cotest (30-65) 2019 PAP SMEAR 2019 INFLUENZA VACCINE (#1) 2023 HPV VACCINES Aged Out No longer eligi ble based on patient's age to complete this topic Insurance [facility] [place]ORE [id number] Care Teams Glass Novelty Maker Relationship Specialty Start Date End Date Fina Bowles MD [address] [place] [phone] PCP - General Family Practice 03/10/24
--- OUTSIDE RECORDS SUMMARY | 2024-06-28 09:43 | XMS_ITS | Referral Summary ---
Author Organization [facility] [address] Address [address] [place] [phone] Care Team Providers Care Job Setter Name Role Phone Elving-Fina Poole MD Primary Care Provider Allergies Active Allergy Reactions Criticality Noted Date Comments Sulfa (Sulfonamide Antibiotics) Swelling Medium 05/2021 Medications metFORMIN (GLUCOPHAGE) 500 mg tablet 03/20/2021 Active citalopram (CeleXA) 20 mg tablet 03/20/2021 Active Active Problems No known active problems Social History Tobacco Use Types Packs/Day Years Used Date Smoking Tobacco: Never Assessed Comments Unknown Sex and Gender Information Value Date Recorded Sex Assigned at Not on file Legal Sex Female 4:15 PM RECRUITING SCHEDULER Gender Identity Not on file Sexual Orientation Not on file Last Filed Vital Signs Vital Sign Reading Time Taken Comments Blood Pressure 122/86 03/25/2021 10:28 AM RECRUITING SCHEDULER Pulse 85 03/25/2021 10:28 AM RECRUITING SCHEDULER Temperature 36.9 C (98.4 F) 03/25/2021 10:28 AM RECRUITING SCHEDULER Respiratory Rate 16 03/25/2021 10:28 AM RECRUITING SCHEDULER Oxygen Saturation 97% 03/25/2021 10:28 AM RECRUITING SCHEDULER Inhaled Oxygen Concentration - - Weight 135.2 kg (298 lb) 03/25/2021 10:28 AM RECRUITING SCHEDULER Height 162.6 cm (5' 4 ) 03/25/2021 10:28 AM RECRUITING SCHEDULER Body Mass Index 51.15 03/25/2021 10:28 AM RECRUITING SCHEDULER Plan of Treatment Not on file Insurance [facility] PL[facility] Care Teams Job Setter Relationship Specialty Start Date End Date Fina Jimenez MD [address] [place] [phone] PCP - General Family Medicine 03/25/21
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
--- OUTSIDE RECORDS SUMMARY | 2024-06-28 09:44 | XMS_ITS | Clinical Summary ---
Author Organization [facility] Address [address] [place] [address] Phone Care Team Providers Care Geothermal Plant Manager Name Role Phone Unavailable Unavailable Unavailable Reason for Visit and Chief Complaint The Chief Complaint is: WW exam .for the last two months having spotting then her cycle, then spotting again and her cycle. Some right flank pain, no fevers, no urinary problems. Spotting w/be a darker blood. No oder Problems Includes: Problems addressed during this encounter and other active Problems All Visits Onset Date Resolved Date Provider Condition S tatus Anxiety Disorder Nos 05/28/2010 ANGEL MACARIO MD Active Last Documented On 01/12/2023 11:32AM ; [facility] Note: Unchanged Plan of Treatment Ordered a pelvic ultrasound. - Last Documented On 12/10/2021 1:41PM ; [facility] Assessments Includes: Assessments from this encounter Findings - [Z01.411 - Encounter for gynecological examination (general) (routine) with abnormal findings] Routine gynecological exam with cervical pap smear - Last Documented On 12/10/2021 1:41PM ; [facility] - [Z01.419 - Encounter for gynecological examination (general) (routine) without abnormal findings] Routine gynecological exam with cervical pap smear without abnormal findings - Last Documented On 12/10/2021 1:41PM ; [facility] - [N94.6 - Dysmenorrhea, unspecified] Dysmenorrhea - Last Documented On 12/10/2021 1:41PM ; [facility] Medical Equipment - Implanted Devices Includes: Current Devices No Medical Equipment Recorded Medications Includes: Medications discussed during this encounter and other current Medications New / Renewed during this visit ANGEL MACARIO MD on 12/10/2021 metFORMIN HCl 500 MG Oral Tablet Provider: ANGEL Carrera 90 day supply: 360 tablet, 3 refills Diagnosis: Polycystic ovarian syndrome 2 BID Pharmacy: Marie Acuñan Juni [email or web address] ([facility] - [address] , [facility], [phone] - Last Documented On 3 4:12PM By ANGEL MACARIO MD ; [facility] CeleXA 20 MG Oral Tablet Provider: NOE MACARIO MD 90 day supply: 135 tablet, 3 refills Diagnosis: Anxiety disorder, unspecified 1 1/2 tab PO qd. Pharmacy: Marie Taylor ([facility]) - [address] , [facility], [phone] - Last Documented On 3 11:47AM By ANGEL MACARIO MD ; [facility] Current Medications (continue as prescribed) CeleXA 20 MG Oral Tablet 01/12/2023 Provider: NOE MACARIO MD Diagnosis: Anxiety disorder , unspecified 1 1/2 tab PO qd. Last Documented On 3 11:54AM By ANGEL MACARIO MD ; [facility] Lisdexamfetamine Dimesylate 30 MG Oral Capsule 01/12/2023 Provider: ANGEL Carrera Diagnosis: One tablet daily Last Documented On 3 11:53AM By ANGEL MACARIO MD ; [facility] metFORMIN HCl 500 MG Oral Tablet 06/18/2022 Provider: ANGEL Carrera Diagnosis: Polycystic ovari an syndrome 2 BID Last Documented On 3 4:13PM By ANGEL MACARIO MD ; [facility] Medications Administered Includes: Administered Medications from this encounter No Administered Medications Recorded Vital Signs Includes: Vital Signs from this encounter Vital Name 12/10/2021 01:05P Blood Pressure Sitting (mmHg) 138/88 Pulse Rate-Sitting (bpm) 90 Respiration Rate (breaths/min) 18 Height (in) 64 Weight (lb) 298 Body Mass Index (kg/m2) 51.2 Body Surface Area (m2) 2.3 Oxygen Saturation (%) 98 Last Documented: On 12/10/2021 1:16PM ; [facility] Results Includes: Results discussed during this encounter No Results Recorded For Specified Dates History of Present Illness Includes: History of Present Illness from this encounter HPI BRIELLE LOPEZ is a 31 year old female. Source of patient information was patient ? Medication list reviewed - Feeling fine - Right flank pain Brielle Lopez is a pleasant 31-year-old female who presents to the clinic for a Well-Woman exam. She states over the last 2 months she is having spotting other than her cycle, then spotting again, and her cycle. She complains of right flank pain and discomfort which is occurring every day. She denies any fevers or urinary problems. She reports the spotting is with a darker blood. She denies any odor. She is having the spotting every day, is having painful periods, menstrual cramps. She is taking metformin 500 mg 2 twice a day, which she has done for years. She denies any chest pain, palpitations or shortness of breath. She is eating and sleeping well at night. Her bowels are moving well. Previous pelvic ultrasound was performed on 11-19-2018 which revealed hyperechoic material of the endometrial stripe region may represent acute blood products versus calcification of a previous blood clot versus unusual calcification from fibroid disease. No ovarian mass or cyst was seen. Social History Description Last Updated Single works at [employer] (Has a bachelors in Biology) ~Now living in [place] 06/18/2022 Last Documented On 2 1:05PM ; [facility] Tobacco non-user 06/18/2022 Last Documented On 2 1:05PM ; [facility] Not sexually active 12/10/2021 Last Documented On 2 1:41PM ; [facility] Current nonsmoker 03/07/2020 Last Documented On 2 1:05PM ; [facility] Smoking Status Unknown Procedures and Surgical History Includes: Procedures from this encounter Procedures Code Diagnosis Performing Provider Service L ocation Service Date education and instructions Last Documented On 2 1:34PM ; [facility] explanation of plan : patien t/guardian states understanding of and agreement to treatment options and plan Last Documented On 2 1:34PM ; [facility] medication list reviewed Last Documented On 2 1:34PM ; [facility] Reviewed & agreed to staff entries. Last Documented On 2 1:34PM ; [facility] Clinical summary provided to patient Last Documented On 2 1:34PM ; [facility] cervical Pap smear 14465 Last Documented On 2 1:18PM ; [facility] Medical History Includes: Medical History addressed during this encounter Description Last Updated LMP: 07/04/2021 06/18/2022 Last Documented On 2 1:05PM ; [facility] Not using contraception 12/10/2021 Last Documented On 2 1:41PM ; [facility] Aborta 0 01/05/2012 Last Documented On 2 1:05PM ; [facility] 0 01/05/2012 Last Documented On 2 1:05PM ; [facility] Para 0 01/05/2012 Last Documented On 2 1:05PM ; [facility] Reviewed PMH for frequent illnesses 10/2010 Last Documented On 2 1:05PM ; [facility] Family History Includes: Family History addressed during this encounter Description Last Updated Paternal history of father hyperlipidemi a 10/23/2017 Last Documented On 2 1:05PM ; [facility] Maternal history of family h istory of heart disease Maternal side of family ~anxiety 07/01/2016 Last Documented On 2 1:05PM ; [facility] Review of Systems Includes: Review of Systems from this encounter Head: No headache. Cardiovascular: No chest pain or discomfort. Gastrointestinal: Normal appetite. Genitourinary: Abnormal menses, irregular menstrual bleeding, and bleeding between periods. Mental Status Includes: Mental Status from this encounter Description The memory was unimpaired Judgement was not impaired Functional Status Includes: Functional Status from this encounter No Functional Status Recorded Physical Exam Includes: Physical Exam from this encounter Allergies Includes: Active Allergies Substance Type Reaction Onset Date Resolved Date Statu s Keflex Allergy 07/14/2008 Active Last Documented On 3 11:24AM ; [facility] Bactrim Allergy 07/14/2008 Active Last Documented On 3 11:24AM ; [facility] Encounters Encounter Provider Location Date Check-In Time Check-Out Time Diagnosis [facility] - ESTABLISHED PT ANGEL MACARIO MD [facility] 022 12:57PM 1:42PM Routine Gynecological Exam with Cervical Pap Smear,Dysmenorrh ea,Routine Gynecological Exam with Cervical Pap Smear Without Abnormal Findings Insurance Includes: Active Insurance Policies Plan Name Member ID Group # Subscriber Relationship Effect sharla Dates 1 - R [id number] BRIELLE LOPEZ Self Clinical Notes Includes: Clinical Notes from this encounter No Clinical Notes Recorded
--- OUTSIDE RECORDS SUMMARY | 2024-06-28 09:44 | XMS_ITS ---
Author Organization [facility] Address [address] [place] [address] Phone Care Team Providers Care Aviation Medicine Specialist Name Role Phone Unavailable Unavailable Unavailable Problems Includes: Active, inactive, and resolved Problems All Visits Onset Date Resolved Date Provider Condition S tatus Anxiety Disorder Nos 05/28/2010 ANGEL MACARIO MD Active Last Documented On 01/12/2023 11:32AM ; [facility] Note: Unchanged Plan of Treatment Findings Encounter Date Increase celexa to 30mg vero y. Discussed adding buspar for additional anxiety relief but will hold off for now. Call sooner if needed. ER if severe EMERGENCY ROOM FOLLOWUP-ESTABLISHED PT with JOHN FOSTER PA-C 07/18/2021 Last Documented On 2 3:00PM ; [facility] Ordered Clinical summary pro vided to patient . Plan discussed and patient/parent/caregiver states understanding EMERGENCY ROOM FOLLOWUP-ESTABLISHED PT with JOHN FOSTER PA-C 07/18/2021 Last Documented On 2 3:00PM ; [facility] Ordered follow-up visit 6 wk s. Has appt in early August EMERGENCY ROOM FOLLOWUP-ESTABLISHED PT with JOHN Varun FOSTER PA-C 07/18/2021 Last Documented On 2 3:00PM ; [facility] Ordered return to the clinic if condition worsens or new symptoms arise EMERGENCY ROOM FOLLOWUP-ESTABLISHED PT with JOHN FOSTER PA-C 07/18/2021 Last Documented On 2 3:00PM ; [facility] Ordered Clinical summary pro vided to patient . Plan discussed and patient/parent/caregiver states understanding WELL WOMAN EXAM with JOHN FOSTER PA-C 03/07/2020 Last Documented On 0 3:36PM ; [facility] Ordered follow-up visit 1 jonel fischer; if this PAP normal, next PAP in 2-3 years. Encourage yearly well woman visits for breast and female health and STD screening. Get fasting labs any time. Discussed possible PCOS. Weight loss can help. May need to get back on OCPs if periods stop all together. Call office if ovarian pain/pelvic pain worsens and will get an ultrasound WELL WOMAN EXAM with JOHN FOSTER PA-C 03/07/2020 Last Documented On 0 3:36PM ; [facility] Ordered return to the clinic if condition worsens or new symptoms arise WELL WOMAN EXAM with JOHN FOSTER PA-C 03/07/2020 Last Documented On 0 3:36PM ; [facility] Ordered Clinical summary pro vided to patient . Plan discussed and patient understands SICK VISIT with JOHN FOSTER PA-C 06/07/2013 Last Documented On 4 8:48AM ; [facility] Ordered follow-up visit as n eeded with an office visit. Fluids, rest, hot steamy showers, vicks. Musinex DM is good for cough/congestion. Allergy med--rob/claritin/zyrtec. Call if symptoms worsen/persist beyond 5 days SICK VISIT with JOHN FOSTER PA-C 06/07/2013 Last Documented On 4 8:48AM ; [facility] Ordered Clinical summary pro vided to patient . Plan discussed and patient understands SICK VISIT with JOHN FOSTER PA-C 04/05/2013 Last Documented On 4 2:47PM ; [facility] Ordered follow-up visit as n eeded with an office visit. Salt water gargles, throat losenges. Fluids, rest. Change toothbrush after 48 hrs on antibiotic. Call if symptoms worsen/persist SICK VISIT with JOHN FOSTER PA-C 04/05/2013 Last Documented On 4 2:47PM ; [facility] RTC in 1-3 mo for [employer]. Peter nt has had Gardasil series WELL WOMAN EXAM with JOHN FOSTER PA-C 01/05/2012 Last Documented On 2 4:21PM ; [facility] Ordered follow-up visit as n eeded with an office visit.. Patient encouraged to get Sudafed OTC and to call if sx are worsening in the next few days SICK VISIT with MAN MA PA-C 07/18/2009 Last Documented On 0 3:09PM ; [facility] Ordered follow-up visit as n eeded with an office visit. SICK VISIT with MAN MA PA-C 05/03/2009 Last Documented On 0 3:02PM ; [facility] Instructions to patient Intervention and counseling on cessation of tobacco use Last Documented On 3 3:09PM ; [facility] Recommend diet and exercise at least 30 min three times per week Last Documented On 1 10:44PM ; [facility] Education and Decision Aids were provided during visit for: Patient education about self -examination of breasts ~Daily calcium (1200mg) and Vit D (800 IU) for osteoporosis prevention Last Documented On 0 2:16PM ; [facility] Discussed concerns about uns afe sexual practices Stressed condom use for STD prevention Last Documented On 0 2:16PM ; [facility] Patient education about self -examination of breasts Last Documented On 9 2:07PM ; [facility] Patient education about self -examination of breasts Last Documented On 8 2:59PM ; [facility] Patient education about self -examination of breasts Last Documented On 7 1:54PM ; [facility] Patient education about self -examination of breasts Last Documented On 6 11:21AM ; [facility] Patient education about self -examination of breasts Last Documented On 5 11:13AM ; [facility] Patient education about self -examination of breasts Last Documented On 3 9:05AM ; [facility] Patient education about self -examination of breasts Last Documented On 2 3:32PM ; [facility] Assessments Includes: Assessments for all patient encounters Findings Encounter Date Anxiety disorder NOS WELL WOMAN - ESTABL ISHED PT with ANGEL MACARIO MD 01/12/2023 Last Documented On 3 10:18PM ; [facility] Dysmenorrhea WELL WOMAN - ESTABLISHED PT with ANGEL MACARIO MD 01/12/2023 Last Documented On 3 10:18PM ; [facility] Routine history and physical WELL WOMAN - ESTABLISHED PT with ANGEL MACARIO MD 01/12/2023 Last Documented On 3 10:18PM ; [facility] Dysmenorrhea CHECK UP with ANGEL MACARIO MD 06/18/2022 Last Documented On 3 10:20PM ; [facility] Dysmenorrhea WELL WOMAN - ESTABLISHED PT with ANGEL MACARIO MD 12/10/2021 Last Documented On 2 1:41PM ; [facility] Routine gynecological exam w ith cervical pap smear WELL WOMAN - ESTABLISHED PT with ANGEL MACARIO MD 12/10/2021 Last Documented On 2 1:41PM ; [facility] Routine gynecological exam w ith cervical pap smear without abnormal findings WELL WOMAN - ESTABLISHED PT with ANGEL MACARIO MD 12/10/2021 Last Documented On 2 1:41PM ; [facility] Anxiety disorder NOS CHECK UP with ANGEL RICHARDS MD 08/27/2021 Last Documented On 2 3:04PM ; [facility] Polycystic Ovarian Syndrome (PCOS) CHECK UP with ANGEL MACARIO MD 08/27/2021 Last Documented On 2 3:04PM ; [facility] Anxiety disorder NOS EMERGENCY ROOM FOLL OWUP-ESTABLISHED PT with JOHN FOSTER PA-C 07/18/2021 Last Documented On 2 3:00PM ; [facility] Edema PROBLEM VISIT with ANGEL RICHARDS MD 06/24/2021 Last Documented On 2 11:24PM ; [facility] Anxiety disorder NOS CHECK UP with ANGEL RICHARDS MD 02/26/2021 Last Documented On 1 4:25PM ; [facility] Polycystic Ovarian Syndrome (PCOS) CHECK UP with ANGEL MACARIO MD 02/26/2021 Last Documented On 1 4:25PM ; [facility] Dysmenorrhea WELL WOMAN - ESTABLISHED PT with ANGEL MACARIO MD 11/23/2020 Last Documented On 1 11:38PM ; [facility] Overweight WELL WOMAN - ESTABLISHED PT with ANGEL MACARIO MD 11/23/2020 Last Documented On 1 11:38PM ; [facility] Polycystic Ovarian Syndrome (PCOS) WELL WOMAN - ESTABLISHED PT with ANGEL MACARIO MD 11/23/2020 Last Documented On 1 11:38PM ; [facility] Routine gynecological exam w ith cervical pap smear WELL WOMAN - ESTABLISHED PT with ANGEL MACARIO MD 11/23/2020 Last Documented On 1 11:38PM ; [facility] Routine history and physical WELL WOMAN - ESTABLISHED PT with ANGEL MACARIO MD 11/23/2020 Last Documented On 1 11:38PM ; [facility] Oligomenorrhea WELL WOMAN EXAM with JOHN Varun VENTURA PA-C 03/07/2020 Last Documented On 0 3:36PM ; [facility] Routine gynecological exam w ith cervical pap smear WELL WOMAN EXAM with JOHN E FOSTER PA-C 03/07/2020 Last Documented On 0 3:36PM ; [facility] Screen malignant neoplasm cervix WELL WO MAN EXAM with JOHN E FOSTER PA-C 03/07/2020 Last Documented On 0 3:36PM ; [facility] SCREENING FOR STD WELL WOMAN EXAM with JOHN E FOSTER PA-C 03/07/2020 Last Documented On 0 3:36PM ; [facility] Routine history and physical WELL WOMAN EXAM chago MACARIO MD 11/09/2018 Last Documented On 9 2:32PM ; [facility] Routine gynecological exam w ith cervical pap smear WELL WOMAN EXAM with ANGEL MACARIO MD 10/23/2017 Last Documented On 8 11:21PM ; [facility] Routine history and physical WELL WOMAN EXAM chago MACARIO MD 10/23/2017 Last Documented On 8 11:21PM ; [facility] Routine gynecological exam w ith cervical pap smear WELL WOMAN EXAM with ANGEL MACARIO MD 09/30/2016 Last Documented On 7 2:19PM ; [facility] Routine history and physical WELL WOMAN EXAM wit h ANGEL MACARIO MD 09/30/2016 Last Documented On 7 2:19PM ; [facility] Contraceptive management: in itiate contraception WELL WOMAN EXAM with ANGEL MACARIO MD 07/01/2016 Last Documented On 7 11:38AM ; [facility] Dysmenorrhea WELL WOMAN EXAM with ANGEL WALKER MD 07/01/2016 Last Documented On 7 11:38AM ; [facility] Normal routine history and physical WELL WOMAN EXAM with ANGEL MACARIO MD 03/26/2015 Last Documented On 6 1:00PM ; [facility] Routine gynecological exam w ith cervical pap smear WELL WOMAN EXAM with ANGEL MACARIO MD 03/26/2015 Last Documented On 6 1:00PM ; [facility] Anxiety disorder NOS WELL WOMAN EXAM with ANGEL MACARIO MD 03/24/2014 Last Documented On 5 11:35AM ; [facility] Normal routine history and physical WELL WOMAN EXAM with ANGEL MACARIO MD 03/24/2014 Last Documented On 5 11:35AM ; [facility] Routine gynecological exam w ith cervical pap smear WELL WOMAN EXAM with ANGEL MACARIO MD 03/24/2014 Last Documented On 5 11:35AM ; [facility] Upper respiratory infection SICK VISIT with CARSON FOSTER PA-C 06/07/2013 Last Documented On 4 8:48AM ; [facility] Acute pharyngitis SICK VISIT with JOHN SALINAS PA-C 04/05/2013 Last Documented On 4 2:47PM ; [facility] Normal routine history and physical WELL WOMAN EXAM with ANGEL MACARIO MD 03/22/2013 Last Documented On 3 9:18AM ; [facility] Routine gynecological exam w ith cervical pap smear WELL WOMAN EXAM with ANGEL MACARIO MD 03/22/2013 Last Documented On 3 9:18AM ; [facility] Normal routine history and physical WELL WOMAN EXAM with ANGEL MACARIO MD 03/09/2012 Last Documented On 2 3:43PM ; [facility] Routine gynecological exam w ith cervical pap smear WELL WOMAN EXAM with ANGEL MACARIO MD 03/09/2012 Last Documented On 2 3:43PM ; [facility] Menorrhagia WELL WOMAN EXAM with JOHN VENTURA PA-C 01/05/2012 Last Documented On 2 4:21PM ; [facility] Acute pharyngitis SICK VISIT with ANGEL ACKERMAN MD 08/28/2010 Last Documented On 1 3:41PM ; [facility] Anxiety disorder NOS SICK VISIT with ANGEL WALKER MD 05/28/2010 Last Documented On 1 10:45PM ; [facility] Dermatitis SICK VISIT with ANGEL WIGGINS MD 05/28/2010 Last Documented On 1 10:45PM ; [facility] Overweight SICK VISIT with ANGEL WIGGINS MD 05/28/2010 Last Documented On 1 10:45PM ; [facility] Eustachian tube dysfunction SICK VISIT with GUNJAN APTRICIA-C 07/18/2009 Last Documented On 0 3:09PM ; [facility] Upper respiratory infection SICK VISIT with GUNJAN PATRICIA-C 05/03/2009 Last Documented On 0 3:02PM ; [facility] Anxiety disorder NOS 1 MONTH CHECK with ANGEL WHITESIDE MD 02/20/2009 Last Documented On 9 11:52PM ; [facility] Depression 1 MONTH CHECK with ANGEL RICHARDS MD 02/20/2009 Last Documented On 9 11:52PM ; [facility] Anxiety disorder NOS GENERAL OFFICE VISIT with uJni MACARIO MD 01/23/2009 Last Documented On 9 10:55PM ; [facility] Dysmenorrhea GENERAL OFFICE VISIT with ANGEL MACARIO MD 01/23/2009 Last Documented On 9 10:55PM ; [facility] Fatigue GENERAL OFFICE VISIT with ANGEL MACARIO MD 01/23/2009 Last Documented On 9 10:55PM ; [facility] Instructions Includes: Instructions for all patient encounters Instructions to patient Intervention and counseling on cessation of tobacco use Last Documented On 3 3:09PM ; [facility] Recommend diet and exercise at least 30 min three times per week Last Documented On 1 10:44PM ; [facility] Education and Decision Aids were provided during visit for: Patient education about self -examination of breasts ~Daily calcium (1200mg) and Vit D (800 IU) for osteoporosis prevention Last Documented On 0 2:16PM ; [facility] Discussed concerns about uns afe sexual practices Stressed condom use for STD prevention Last Documented On 0 2:16PM ; [facility] Patient education about self -examination of breasts Last Documented On 9 2:07PM ; [facility] Patient education about self -examination of breasts Last Documented On 8 2:59PM ; [facility] Patient education about self -examination of breasts Last Documented On 7 1:54PM ; [facility] Patient education about self -examination of breasts Last Documented On 6 11:21AM ; [facility] Patient education about self -examination of breasts Last Documented On 5 11:13AM ; [facility] Patient education about self -examination of breasts Last Documented On 3 9:05AM ; [facility] Patient education about self -examination of breasts Last Documented On 2 3:32PM ; [facility] Medical Equipment - Implanted Devices Includes: Current and historical Devices No Medical Equipment Recorded Medications Includes: Current and historical Medications Current Medications (continue as prescribed) CeleXA 20 MG Oral Tablet 01/12/2023 Provider: NOE MACARIO MD Diagnosis: Anxiety disorder , unspecified 1 1/2 tab PO qd. Last Documented On 3 11:54AM By ANGEL MACARIO MD ; [facility] Lisdexamfetamine Dimesylate 30 MG Oral Capsule 01/12/2023 Provider: ANGEL Carrera Diagnosis: One tablet daily Last Documented On 3 11:53AM By ANGEL MACARIO MD ; [facility] metFORMIN HCl 500 MG Oral Tablet 06/18/2022 Provider: ANGEL Carrera Diagnosis: Polycystic ovari an syndrome 2 BID Last Documented On 3 4:13PM By ANGEL MACARIO MD ; [facility] Past Medications on file Spironolactone 50 MG Oral Tablet 07/16/2022 - 12/21/2022 Provider: ANGEL MACARIO MD Diagnosis: Polycystic ovari an syndrome One tablet daily Last Documented On 01/12/2023 11:24AM By Carolyn ASHBY ; [facility] metFORMIN HCl 500 MG Oral Tablet 12/10/2021 - 06/18/2022 Provider: ANGEL MACARIO MD Diagnosis: Polycystic ovari an syndrome 2 BID Last Documented On 3 4:12PM By ANGEL MACARIO MD ; [facility] CeleXA 20 MG Oral Tablet 12/10/2021 - 01/12/2023 Provider: ANGEL MACARIO MD Diagnosis: Anxiety disorder , unspecified 1 1/2 tab PO qd. Last Documented On 3 11:47AM By ANGEL MACARIO MD ; [facility] CeleXA 20 MG Oral Tablet 08/27/2021 - 12/10/2021 Provider: ANGEL MACARIO MD Diagnosis: Anxiety disorder , unspecified 1 1/2 tab PO qd. Last Documented On 2 1:36PM By ANGEL MACARIO MD ; [facility] metFORMIN HCl 500 MG Oral Tablet 08/27/2021 - 12/10/2021 Provider: ANGEL MACARIO MD Diagnosis: Polycystic ovari an syndrome 2 BID Last Documented On 2 1:36PM By ANGEL MACARIO MD ; [facility] CeleXA 20 MG Oral Tablet 07/18/2021 - 08/27/2021 Provider: JOHN FOSTER PA-C Diagnosis: Anxiety disorder , unspecified 1 1/2 tab PO qd. This is an increase. Last Documented On 2 2:56PM By ANGEL MACARIO MD ; [facility] Lasix 40 MG Oral Tablet 06/24/2021 - 04/24/2021 Provider: ANGEL WIGGINS MD Diagnosis: Edema, unspecifi ed 1 daily today and tomorrow a nd then as needed Last Documented On 08/27/2021 2:45PM By Carolyn ASHBY ; [facility] metFORMIN HCl 500 MG Oral Tablet 03/20/2021 - 08/27/2021 Provider: ANGEL MACARIO MD Diagnosis: Polycystic ovari an syndrome 2 BID Last Documented On 2:56PM By ANGEL MACARIO MD ; [facility] Citalopram Hydrobromide 20 M G Oral Tablet 03/20/2021 - 04/24/2021 Provider: ANGEL WIGGINS MD Diagnosis: TAKE 1 TABLET BY MOUTH EVERY DAY Last Documented On 08/27/2021 2:45PM By Carolyn ASHBY ; [facility] metFORMIN HCl 500 MG Oral Tablet 03/14/2021 - 02/26/2021 Provider: ANGEL MACARIO MD Diagnosis: Polycystic ovari an syndrome 2 BID Last Documented On 03/20/2021 5:33PM By ISHMAEL ASHBY ; [facility] Citalopram Hydrobromide 20 M G Oral Tablet 02/26/2021 - 02/26/2021 Provider: ANGEL WIGGINS MD Diagnosis: TAKE 1 TABLET BY MOUTH EVERY DAY Last Documented On 03/20/2021 5:33PM By ISHMAEL ASHBY ; [facility] metFORMIN HCl 500 MG Oral Tablet 02/26/2021 - 03/14/2021 Provider: ANGEL MACARIO MD Diagnosis: Polycystic ovari an syndrome 2 BID Last Documented On 03/14/2021 4:00PM By Carolyn ASHBY ; [facility] metFORMIN HCl 500 MG Oral Tablet 11/23/2020 - 02/26/2021 Provider: ANGEL MACARIO MD Diagnosis: Polycystic ovari an syndrome as directed one at HS x 7 da ys then BID x 7 days continue to increase to 2 BID Last Documented On 4:23PM By ANGEL MACARIO MD ; [facility] Citalopram Hydrobromide 20 M G Oral Tablet 03/07/2020 - 02/26/2021 Provider: JOHN FOSTER PA-C Diagnosis: TAKE 1 TABLET BY MOUTH EVERY DAY Last Documented On 1 4:23PM By ANGEL MACARIO MD ; [facility] Loestrin /20 (21) 1-20MG-MC G Oral Tablet 11/09/2018 - 03/07/2020 Provider: ANGEL WIGGINS MD Diagnosis: TAKE 1 TABLET BY MOUTH DAILY Last Documented On 0 2:18PM By JOHN FOSTER PA-C ; [facility] Citalopram Hydrobromide 20MG Oral Tablet 11/09/2018 - 03/07/2020 Provider: ANGEL WIGGINS MD Diagnosis: TAKE 1 TABLET BY MOUTH EVERY DAY Last Documented On 0 2:31PM By JOHN FOSTER PA-C ; [facility] Loestrin /20 (21) 1-20MG-MC G Oral Tablet 10/23/2017 - 11/09/2018 Provider: ANGEL WIGGINS MD Diagnosis: TAKE 1 TABLET BY MOUTH DAILY Last Documented On 11/09/2018 2:15PM By SONIA ASHBY ; [facility] Citalopram Hydrobromide 20MG Oral Tablet 10/23/2017 - 11/09/2018 Provider: ANGEL WIGGINS MD Diagnosis: TAKE 1 TABLET BY MOUTH EVERY DAY Last Documented On 11/09/2018 2:15PM By SONIA ASHBY ; [facility] Loestrin /20 (21) 1-20MG-MC G Oral Tablet 09/14/2017 - 10/23/2017 Provider: ANGEL WIGGINS MD Diagnosis: TAKE 1 TABLET BY MOUTH DAILY Last Documented On 10/23/2017 3:09PM By KELIN MERLOS CMA ; [facility] Loestrin 1/20 (21) 1-20MG-MCG Oral Tablet 09/30/2016 - 09/14/2017 Provider: ANGEL MACARIO MD Diagnosis: Encntr for gener al adult medical exam w/o abnormal findings One tablet daily Last Documented On 8 9:56AM By JOHN FOSTER PA-C ; [facility] Citalopram Hydrobromide 20MG Oral Tablet 09/30/2016 - 10/23/2017 Provider: ANGEL WIGGINS MD Diagnosis: TAKE 1 TABLET BY MOUTH EVERY DAY Last Documented On 10/23/2017 3:17PM By KELIN MERLOS CMA ; [facility] Sprintec 28 0.25-35MG-MCG Oral Tablet 07/01/2016 - 11/09/2018 Provider: ANGEL MACARIO MD Diagnosis: Encntr for gener al adult medical exam w/o abnormal findings 1 daily Last Documented On 11/09/2018 1:43PM By BIENVENIDO ASHBY ; [facility] Citalopram Hydrobromide 20MG Oral Tablet 07/01/2016 - 09/30/2016 Provider: ANGEL WIGGINS MD Diagnosis: TAKE 1 TABLET BY MOUTH EVERY DAY Last Documented On 7 2:00PM By ANGEL MACARIO MD ; [facility] Citalopram Hydrobromide 20MG Oral Tablet 06/03/2016 - 07/01/2016 Provider: ANGEL WIGGINS MD Diagnosis: TAKE 1 TABLET BY MOUTH EVERY DAY; keep appt Last Documented On 7 11:33AM By ANGEL MACARIO MD ; [facility] Sprintec 28 0.25-35 MG-MCG Tablet 03/26/2015 - 07/01/2016 Provider: ANGEL MACARIO MD Diagnosis: 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 pest 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 xam (general) (routine) w/o abn findings 1 daily TO REPLACE LOESTRIN Last Documented On 07/01/2016 10:54AM By BIENVENIDO ASHBY ; [facility] Citalopram Hydrobromide 20 M G Tablet 03/26/2015 - 06/03/2016 Provider: ANGEL WIGGINS MD Diagnosis: 1 daily W G Last Documented On 7 5:29PM By JOHN FOSTER PA-C ; [facility] Lo Loestrin Fe 1 MG-10 MCG / 10 MCG Tablet 02/13/2015 - 07/01/2016 Provider: ANGEL WIGGINS MD Diagnosis: as directed TAKE 1 TABLET BY MOUTH DAILY AT THE SAME TIME EACH DAY Last Documented On 07/01/2016 10:54AM By BIENVENIDO ASHBY ; [facility] Lo Loestrin Fe 1 MG-10 MCG / 10 MCG OR TABS 03/24/2014 - 02/13/2015 Provider: ANGEL MACARIO MD Diagnosis: Excessive Menstr uation TAKE 1 TABLET BY MOUTH DAILY AT THE SAME TIME EACH DAY Last Documented On 5 8:16PM By ANGEL MACARIO MD ; [facility] Citalopram Hydrobromide 20 MG OR TABS 03/24/2014 - 04/2014 Provider: Diagnosis: Last Documented On 5 11:23AM By KRISTEN ASHBY ; [facility] Citalopram Hydrobromide 20 M G OR TABS 03/24/2014 - 10/21/2020 Provider: ANGEL WIGGINS MD Diagnosis: Last Documented On 11/23/2020 3:36PM By Carolyn ASHBY ; [facility] Lo Loestrin Fe 1 MG-10 MCG / 10 MCG OR TABS 02/20/2014 - 03/24/2014 Provider: ANGEL MACARIO MD Diagnosis: Excessive Menstr uation TAKE 1 TABLET BY MOUTH DAILY AT THE SAME TIME EACH DAY Last Documented On 5 11:23AM By KRISTEN ASHBY ; [facility] Zithromax Z-Hans 250 MG OR TABS 06/07/2013 - 10/21/2020 Provider: JOHN FOSTER PA-C Diagnosis: ACUTE URI NOS Take as directed. Last Documented On 11/23/2020 3:36PM By Carolyn ASHBY ; [facility] ProAir HFA 108 (90 Base) MCG/ACT IN AERS 06/07/2013 - 10/21/2020 Provider: JOHN FOSTER PA-C Diagnosis: ACUTE URI NOS 2 puffs q 4-6 hrs PRN Last Documented On 11/23/2020 3:36PM By Carolyn Hand ISMA ; [facility] Lo Loestrin Fe 1 MG-10 MCG / 10 MCG OR TABS 04/13/2013 - 02/20/2014 Provider: ANGEL MACARIO MD Diagnosis: Excessive Menstr uation Take one daily at the same t seth each day. Last Documented On 4 6:44PM By ANGEL MACARIO MD ; [facility] Amoxicillin 250 MG OR CAPS 04/05/2013 - 06/07/2013 Provider: JOHN FOSTER PA-C Diagnosis: ACUTE PHARYNGITI S Take 3 capsules once daily x 10 days Last Documented On 06/07/2013 8:25AM By FARZANA TAVERA MA ; [facility] Citalopram Hydrobromide 20 MG OR TABS 03/22/2013 - 03/26/2015 Provider: ANGEL WIGGINS MD Diagnosis: DERMATITIS NOS Last Documented On 6 11:32AM By ANGEL MACARIO MD ; [facility] Lo Loestrin Fe 1 MG-10 MCG / 10 MCG OR TABS 03/22/2013 - 04/13/2013 Provider: ANGEL MACARIO MD Diagnosis: Excessive Menstr uation Take one daily at the same t seth each day. Last Documented On 4 5:55PM By ANGEL MACARIO MD ; [facility] Lo Loestrin Fe 1 MG-10 MCG / 10 MCG OR TABS 02/24/2013 - 03/22/2013 Provider: ANGEL MACARIO MD Diagnosis: Excessive Menstr uation Take one daily at the same t seth each day. Last Documented On 3 9:06AM By KRISTEN ASHBY ; [facility] Citalopram Hydrobromide 20 MG OR TABS 03/09/2012 - 03/22/2013 Provider: ANGEL WIGGINS MD Diagnosis: DERMATITIS NOS Last Documented On 3 9:06AM By KRISTEN ASHBY ; [facility] Lo Loestrin Fe 1 MG-10 MCG / 10 MCG OR TABS 03/09/2012 - 02/24/2013 Provider: ANGEL MACARIO MD Diagnosis: Excessive Menstr uation Take one daily at the same t seth each day. Last Documented On 02/24/2013 1:33PM By Marissa ASHBY ; [facility] Citalopram Hydrobromide 20 MG OR TABS 01/09/2012 - 03/09/2012 Provider: ANGEL WIGGINS MD Diagnosis: DERMATITIS NOS Last Documented On 2 3:33PM By ANGEL MACARIO MD ; [facility] Lexapro 10 MG OR TABS 01/07/2012 - 03/09/2012 Provider : JOHN FOSTER PA-C Diagnosis: ANXIETY STATE NO S Please use generic. Last Documented On 03/09/2012 2:50PM By Marissa ASHBY ; [facility] Lo Loestrin Fe 1 MG-10 MCG / 10 MCG OR TABS 01/05/2012 - 03/09/2012 Provider: JOHN FOSTER PA-C Diagnosis: Excessive Menstr uation Take one daily at the same time each day. Last Documented On 2 3:33PM By ANGEL MACARIO MD ; [facility] Lexapro 10 MG OR TABS 01/05/2012 - 01/07/2012 Provider : JOHN FOSTER PA-C Diagnosis: ANXIETY STATE NO S Last Documented On 2 11:57AM By JOHN FOSTER PA-C ; [facility] Citalopram Hydrobromide 20 MG OR TABS 10/07/2011 - 01/09/2012 Provider: ANGEL WIGGINS MD Diagnosis: DERMATITIS NOS Last Documented On 01/09/2012 2:57PM By FARZANA TAVERA MA ; [facility] Citalopram Hydrobromide 20 MG OR TABS 07/04/2011 - 10/07/2011 Provider: ANGEL WIGGINS MD Diagnosis: DERMATITIS NOS Last Documented On 10/07/2011 1:46PM By FARZANA TAVERA MA ; [facility] Amoxicillin 250 MG OR CAPS 08/28/2010 - 02/22/2013 Provider: ANGEL MACARIO MD Diagnosis: ACUTE PHARYNGITI S Last Documented On 02/22/2013 2:20PM By FARZANA TAVERA MA ; [facility] Citalopram Hydrobromide 20 MG OR TABS 05/28/2010 - 07/04/2011 Provider: ANGEL WIGGINS MD Diagnosis: DERMATITIS NOS Last Documented On 2 10:53PM By ANGEL MACARIO MD ; [facility] Clotrimazole-Betamethasone 1 -0.05% EX CREA 05/28/2010 - 01/07/2012 Provider: ANGEL MACARIO MD Diagnosis: DERMATITIS NOS Last Documented On 2 11:54AM By FARZANA TAVERA MA ; [facility] Lexapro 10 MG OR TABS 02/28/2010 - 08/28/2010 Provider : ANGEL MACARIO MD Diagnosis: Last Documented On 1 3:14PM By ANGEL MACARIO MD ; [facility] Loestrin 24 Fe 1-20 MG-MCG O R TABS 12/04/2009 - 01/07/2012 Provider: ANGEL WIGGINS MD Diagnosis: NEEDS APPT BEFORE ANY ADDITIONAL RFS Last Documented On 2 11:54AM By FARZANA TAVERA MA ; [facility] Lexapro 10 MG OR TABS 12/03/2009 - 02/28/2010 Provider : ANGEL MACARIO MD Diagnosis: Last Documented On 02/28/2010 5:05PM By Marissa ASHBY ; [facility] Loestrin 24 Fe 1-20 MG-MCG O R TABS 09/26/2009 - 12/04/2009 Provider: ANGEL WIGGINS MD Diagnosis: Last Documented On 12/04/2009 9:00AM By Marissa ASHBY ; [facility] Lexapro 10 MG OR TABS 07/18/2009 - 01/07/2012 Provider : ANGEL MYLES M.D. Diagnosis: Last Documented On 2 11:54AM By FARZANA TAVERA MA ; [facility] Loestrin 24 Fe 1-20 MG-MCG O R TABS 07/18/2009 - 01/05/2012 Provider: ANGEL Stein Diagnosis: Last Documented On 2 4:03PM By JOHN FOSTER PA-C ; [facility] Nasacort AQ 55 MCG/ACT NA AERS 07/18/2009 - 01/07/2012 Provider: MAN Alfredo Diagnosis: DYSFUNCT EUSTACH JORGE TUBE Last Documented On 2 11:54AM By FARZANA TAVERA MA ; [facility] Loestrin 24 Fe 1-20 MG-MCG OR TABS 06/08/2009 - 01/07/2012 Provider: ANGEL WIGGINS MD Diagnosis: DYSMENORRHEA Last Documented On 2 11:54AM By FARZANA TAVERA MA ; [facility] Lexapro 10 MG OR TABS 06/08/2009 - 01/05/2012 Provider : ANGEL MACARIO MD Diagnosis: ANXIETY STATE NO S Last Documented On 2 4:12PM By JOHN FOSTER PA-C ; [facility] Lexapro 10 MG OR TABS 06/04/2009 - 06/08/2009 Provider : ANGEL MACARIO MD Diagnosis: ANXIETY STATE NO S Last Documented On 06/08/2009 9:30AM By Marissa ASHBY ; [facility] Loestrin 24 Fe 1-20 MG-MCG OR TABS 06/04/2009 - 06/08/2009 Provider: ANGEL WIGGINS MD Diagnosis: DYSMENORRHEA 3 samples given Last Documented On 06/08/2009 9:29AM By Marissa ASHBY ; [facility] Lexapro 10 MG OR TABS 04/16/2009 - 06/04/2009 Provider : ANGEL MACARIO MD Diagnosis: ANXIETY STATE NO S Last Documented On 0 6:51PM By ANGEL MACARIO MD ; [facility] Lexapro 10 MG OR TABS 03/14/2009 - 04/16/2009 Provider : ANGEL MACARIO MD Diagnosis: ANXIETY STATE NO S Last Documented On 0 9:47PM By ANGEL MACARIO MD ; [facility] Lexapro 10 MG OR TABS 02/24/2009 - 03/14/2009 Provider : ANGEL MACARIO MD Diagnosis: ANXIETY STATE NO S Last Documented On 9 11:44AM By ANGEL MACARIO MD ; [facility] Lexapro 10 MG OR TABS 01/23/2009 - 02/20/2009 Provider : ANGEL MACARIO MD Diagnosis: ANXIETY STATE NO S Last Documented On 9 11:52PM By ANGEL MACARIO MD ; [facility] Loestrin 24 Fe 1-20 MG-MCG OR TABS 01/23/2009 - 06/04/2009 Provider: ANGEL WIGGINS MD Diagnosis: DYSMENORRHEA 3 samples given Last Documented On 0 6:55PM By ANGEL MACARIO MD ; [facility] Medications Administered Includes: Administered Medications in patient's chart No Administered Medications Recorded Results Includes: Results from 06/29/2023 through 06/28/2024 No Results Recorded For Specified Dates History of Present Illness History of Present Illness not supported for this document type No History of Present Illness Recorded Social History Description Last Updated Single works at [employer] in the dept (2-04-14) ~Now living in [place] 06/18/2022 Last Documented On 3 10:20PM ; [facility] Tobacco non-user 06/18/2022 Last Documented On 3 10:20PM ; [facility] Not sexually active 12/10/2021 Last Documented On 2 1:41PM ; [facility] control method not specified 03/07 Last Documented On 0 3:36PM ; [facility] No consumption of alcohol 07/14/2008 Last Documented On 9 12:56PM ; [facility] Not using drugs 07/14/2008 Last Documented On 9 12:56PM ; [facility] Smoking Status Unknown Medical History Includes: Medical History in patient's chart Description Last Updated LMP: 04/23/2022 06/18/2022 Last Documented On 3 10:20PM ; [facility] Not using contraception 12/10/2021 Last Documented On 2 1:41PM ; [facility] Aborta 0 01/05/2012 Last Documented On 2 4:21PM ; [facility] 0 01/05/2012 Last Documented On 2 4:21PM ; [facility] Para 0 01/05/2012 Last Documented On 2 4:21PM ; [facility] Reviewed PMH for frequent illnesses 10/2010 Last Documented On 1 3:41PM ; [facility] Family History Includes: Family History in patient's chart Description Last Updated Paternal history of father hyperlipidemi a 10/23/2017 Last Documented On 8 11:21PM ; [facility] Maternal history of family h istory of heart disease Maternal side of family ~anxiety 07/01/2016 Last Documented On 7 11:38AM ; [facility] Family history of heart disease Maternal side of family 01/05/2012 Last Documented On 2 4:21PM ; [facility] Review of Systems Review of Systems not supported for this document type No Review of Systems Recorded Mental Status Description The memory was unimpaired Judgement was not impaired Functional Status No Functional Status Recorded Physical Exam Physical Exam not supported for this document type No Physical Exam Recorded Immunizations Includes: Immunizations in patient's chart Vaccine Dose # Date Site Reaction(s) Status Source COVID-19 Moderna 1 05/04/2020 Right Arm Co mplete (Reported) Patient Last Documented On 3 3:08PM ; [facility] COVID-19 Moderna 2 06/12/2020 Right Arm Complete ( Reported) Patient Last Documented On 3 3:08PM ; [facility] COVID-19 Moderna 3 03/28/2021 Right Deltoid Comple te (Reported) Patient Last Documented On 3 3:08PM ; [facility] DTP 1 1990 Complete (Reported) P atient Last Documented On 3 3:08PM ; [facility] DTP 2 1990 Complete (Reported) P atient Last Documented On 3 3:08PM ; [facility] DTP 3 1990 Complete (Reported) P atient Last Documented On 3 3:08PM ; [facility] DTP 4 08/26/1990 Complete (Reported) P atient Last Documented On 3 3:08PM ; [facility] DTP 5 06/05/1994 Complete (Reported) P atient Last Documented On 3 3:08PM ; [facility] Hep B (Engerix-B/Recombivax HB) Ped/Adult 3 dose 1 01/09/1999 Complete (Reported) Pa tient Last Documented On 3 3:08PM ; [facility] Hep B (Engerix-B/Recombivax HB) Ped/Adult 3 dose 2 02/28/1999 Complete (Reported) Pa tient Last Documented On 3 3:08PM ; [facility] Hep B (Engerix-B/Recombivax HB) Ped/Adult 3 dose 3 07/04/1999 Complete (Reported) Pa tient Last Documented On 3 3:08PM ; [facility] Hib 1 05/27/1990 Complete (Reported) P atient Last Documented On 3 3:08PM ; [facility] HPV, (quadrivalent) Gardasil 1 10/28/2006 Complete (Reported) Patient Last Documented On 3 3:08PM ; [facility] HPV, (quadrivalent) Gardasil 2 12/31/2006 Complete (Reported) Patient Last Documented On 3 3:08PM ; [facility] HPV, (quadrivalent) Gardasil 3 06/24/2007 Complete (Reported) Patient Last Documented On 3 3:08PM ; [facility] Influenza (Quadrivalent) , 0.25ml (MDV) 6-35mo. 1 02/09/2019 Right Arm Complete (Reported ) Patient Last Documented On 3 3:08PM ; [facility] Influenza (Quadrivalent)36 m o.& older PF 0.5ml (SD) 1 11/10/2013 Complete (Reported) Patie nt Last Documented On 4 4:02PM ; [facility] Influenza (Quadrivalent)36 m o.& older PF 0.5ml (SD) 2 01/17/2015 Complete (Reported) Patie nt Last Documented On 5 8:24AM ; [facility] Influenza (Trivalent) split virus-PF (ID) 1 11/10/2013 Right Arm Complete (Reported) Patie nt Last Documented On 3 3:08PM ; [facility] Influenza-( TRIVALENT PF) 3 yr & Older 1 01/16/2015 Left Arm Complete (Reported) Patient Last Documented On 3 3:08PM ; [facility] Influenza-( TRIVALENT PF) 3 yr & Older 2 12/06/2015 Left Arm Complete (Reported) Patient Last Documented On 3 3:08PM ; [facility] MMR 1 05/27/1990 Complete (Reported) P atient Last Documented On 3 3:08PM ; [facility] MMR 2 06/05/1994 Complete (Reported) P atient Last Documented On 3 3:08PM ; [facility] OPV 1 1990 Complete (Reported) P atient Last Documented On 3 3:08PM ; [facility] OPV 2 1990 Complete (Reported) P atient Last Documented On 3 3:08PM ; [facility] OPV 3 1990 Complete (Reported) P atient Last Documented On 3 3:08PM ; [facility] OPV 4 08/26/1990 Complete (Reported) P atient Last Documented On 3 3:08PM ; [facility] OPV 5 06/05/1994 Complete (Reported) P atient Last Documented On 3 3:08PM ; [facility] Td (Decavac) 1 10/26/2003 Complete (Report ed) Patient Last Documented On 3 3:08PM ; [facility] Allergies Includes: Active, inactive, and resolved Allergies Substance Type Reaction Onset Date Resolved Date Statu s Keflex Allergy 07/14/2008 Active Last Documented On 3 11:24AM ; [facility] Bactrim Allergy 07/14/2008 Active Last Documented On 3 11:24AM ; [facility] Insurance Includes: Active Insurance Policies Plan Name Member ID Group # Subscriber Relationship Effect sharla Dates 1 - [facility] [id number] JASON MARTE Self Clinical Notes Includes: Signed Clinical Notes starting from 04/11/2022 No Clinical Notes Recorded
--- OUTSIDE RECORDS SUMMARY | 2024-06-28 09:44 | XMS_ITS ---
Care Plan - [facility] Created on: June 28, 2024 JASON MARTE : 1990 Sex: Female Author Organization [facility] Address [address] [place] [address] Phone Care Team Providers Care Stock Speculator Name Role Phone Unavailable Unavailable Unavailable
--- OUTSIDE RECORDS SUMMARY | 2024-06-28 09:44 | XMS_ITS | Clinical Summary ---
Author Organization [facility] Address [address] [place] [address] Phone Care Team Providers Care Heating Worker Name Role Phone Unavailable Unavailable Unavailable Reason for Visit and Chief Complaint The Chief Complaint is: well woman exam without a pap, she is currently on day 7 of her cycle, her bleeding is heavy this month, her periods are irregular in length and how heavy the bleeding is, shehas not had any new partners in the past year, she was in the ER in October for a kidney stone whichshe has since passed, she is taking a vitamin for PCOS, she stopped the Spironolactone because it was making her sick Problems Includes: Problems addressed during this encounter and other active Problems Current Visit Onset Date Resolved Date Provider Ghazal vila Status Anxiety Disorder Nos 05/28/2010 ANGEL MACARIO MD Active Last Documented On 01/12/2023 11:32AM ; [facility] Note: Unchanged Plan of Treatment Refills on the medications were provided. You can try Vyvanse; the biggest side effect is vivid dreams. You can start with 30 mg, and take one tablet daily. Made aware that Inositol might interact with diabetic medications. We discussed lifestyle recommendations including the importance of a healthy diet and exercising as tolerated. Maintain a healthy diet. Encouraged to walk in the form of exercise. Stay well hydrated. Have more water. Follow up as scheduled. IMilagro, scribing the following service on behalf of Dr. Jelena Harden on 01/12/2023. This note has been reviewed by the provider before submitting. - Last Documented On 01/15/2023 10:18PM ; [facility] Assessments Includes: Assessments from this encounter Findings - [Z00.00 - Encounter for general adult medical examination without abnormal findings] Routine history and physical - Last Documented On 01/15/2023 10:18PM ; [facility] - [N94.6 - Dysmenorrhea, unspecified] Dysmenorrhea - Last Documented On 01/15/2023 10:18PM ; [facility] - [F41.9 - Anxiety disorder, unspecified] Anxiety disorder NOS - Last Documented On 01/15/2023 10:18PM ; [facility] Medical Equipment - Implanted Devices Includes: Current Devices No Medical Equipment Recorded Medications Includes: Medications discussed during this encounter and other current Medications New / Renewed during this visit ANGEL MACAROI MD on 01/12/2023 CeleXA 20 MG Oral Tablet Provider: NOE MACARIO MD 90 day supply: 135 tablet, 3 refills Diagnosis: Anxiety disorder, unspecified 1 1/2 tab PO qd. Pharmacy: [facility] - [address] [facility], [id number] - Last Documented On 3 11:54AM By ANGEL MACARIO MD ; [facility] Lisdexamfetamine Dimesylate 30 MG Oral Capsule Provider: ANGEL Carrera 30 day supply: 30 each, 0 refills Diagnosis: One tablet daily Pharmacy: [facility] - [address] [facility], [id number] - Last Documented On 3 11:53AM By ANGEL MACARIO MD ; [facility] Current Medications (continue as prescribed) metFORMIN HCl 500 MG Oral Tablet 06/18/2022 Provider: ANGEL Carrera Diagnosis: Polycystic ovari an syndrome 2 BID Last Documented On 3 4:13PM By ANGEL MACARIO MD ; [facility] Medications Administered Includes: Administered Medications from this encounter No Administered Medications Recorded Vital Signs Includes: Vital Signs from this encounter Vital Name 01/12/2023 11:23A Blood Pressure Sitting R 114/76 BP Cuff Size Regular Pulse Rate-Sitting (bpm) 87 Respiration Rate (breaths/min) 18 Height (in) 64 Weight (lb) 312 Body Mass Index 53.6 Body Surface Area 2.4 Oxygen Saturation (%) 97 Last Documented: On 01/12/2023 11:27A M ; [facility] Results Includes: Results discussed during this encounter No Results Recorded For Specified Dates History of Present Illness Includes: History of Present Illness from this encounter HPI BRIELLE MARTE is a 32 year old female. Source of patient information was patient ? Allergy list reviewed ? Medication list reviewed - Feeling fine - No symptoms Brielle is a pleasant 32-year-old female who presents to our clinic today for a well-woman exam without a pap smear. She is currently on the 7th day of her menstrual cycle and reports experiencing heavier bleeding than usual this month. She notes that her menstrual periods are characterized by irregular lengths and varying degrees of heaviness in bleeding. She has not engaged in any new sexual partnerships over the past year. In October, she visited the emergency room due to a kidney stone, which she has successfully passed. She is currently taking Inositol (a vitamin supplement) for Polycystic Ovary Syndrome (PCOS). The patient wants to know if it was safe to take. She stopped the Spironolactone because it was making her sick. She is still taking metformin. She reports that it is not effectively regulating her menstrual cycle. She notes that she can see the difference when she resumes taking metformin and finds it beneficial. She tries to monitor her sugar and carbohydrate intake. Her sleep pattern is normal. However, on weekends she goes to bed at midnight. Her blood pressure is well-controlled in the clinic today at 114/76. She denies any chest pain, palpitations, or shortness of breath. Her bowels are moving well. She currently weighs 312 lbs. She has a history of anxiety for which she is taking Celexa 20 mg as directed with no concerns. Social History Description Last Updated Single works at [employer] in the [employer] dept (04-23-22) ~Now living in [place] 06/18/2022 Last Documented On 3 11:22AM ; [facility] Tobacco non-user 06/18/2022 Last Documented On 3 11:22AM ; [facility] Smoking Status Unknown Procedures and Surgical History Includes: Procedures from this encounter Procedures Code Diagnosis Performing Provider Service L ocation Service Date education and instructions Last Documented On 3 11:49AM ; [facility] explanation of plan : patien t/guardian states understanding of and agreement to treatment options and plan Last Documented On 3 11:49AM ; [facility] medication list reviewed Last Documented On 3 11:49AM ; [facility] use of tobacco assessment performed 1000F Last Documented On 3 11:25AM ; [facility] Reviewed & agreed to staff entries. Last Documented On 3 11:49AM ; [facility] Clinical summary provided to patient Last Documented On 3 11:49AM ; [facility] Medical History Includes: Medical History addressed during this encounter Description Last Updated LMP: 04/23/2022 06/18/2022 Last Documented On 3 11:22AM ; [facility] Aborta 0 01/05/2012 Last Documented On 3 11:22AM ; [facility] 0 01/05/2012 Last Documented On 3 11:22AM ; [facility] Para 0 01/05/2012 Last Documented On 3 11:22AM ; [facility] Reviewed PMH for frequent illnesses 10/2010 Last Documented On 3 11:22AM ; [facility] Family History Includes: Family History addressed during this encounter Description Last Updated Paternal history of father hyperlipidemi a 10/23/2017 Last Documented On 3 11:22AM ; [facility] Maternal history of family h istory of heart disease Maternal side of family ~anxiety 07/01/2016 Last Documented On 3 11:22AM ; [facility] Family history of heart disease Maternal side of family 01/05/2012 Last Documented On 3 11:22AM ; [facility] Review of Systems Includes: Review of Systems from this encounter Systemic: No edema. Head: No headache. Cardiovascular: No chest pain or discomfort. Pulmonary: No shortness of breath. Gastrointestinal: Normal appetite. Neurological: No dizziness. Mental Status Includes: Mental Status from this encounter Description The memory was unimpaired Judgement was not impaired Functional Status Includes: Functional Status from this encounter No Functional Status Recorded Physical Exam Includes: Physical Exam from this encounter Allergies Includes: Active Allergies Substance Type Reaction Onset Date Resolved Date Statu s Keflex Allergy 07/14/2008 Active Last Documented On 3 11:24AM ; [facility] Bactrim Allergy 07/14/2008 Active Last Documented On 3 11:24AM ; [facility] Encounters Encounter Provider Location Date Check-In Time Check-Out Time Diagnosis [facility] ANGEL MACARIO MD [facility] 01/13/20 10:55AM 11:58AM Anxiety Disorder Nos,Routine History and Physical,Dys menorrhea Insurance Includes: Active Insurance Policies Plan Name Member ID Group # Subscriber Relationship Effect sharla Dates 1 - R [id number] BRIELLE MARTE Self Clinical Notes Includes: Clinical Notes from this encounter * Progress note Date Encounter Last Documented by 01/12/2023 [facility] Last documented on 01/15/2023; 10:18 PM, ANGEL MACARIO MD; [facility] Active Problems & Conditions - 300.00 - Anxiety Disorder Nos Chief Complaint The Chief Complaint is: Well woman exam without a pap, she is currently on day 7 of her cycle, her bleeding is heavy this month, her periods are irregular in length and how heavy the bleeding is, she has not had any new partners in the past year, she was in the ER in October for a kidney stone which she has since passed, she is taking a vitamin for PCOS, she stopped the Spironolactone because it was making her sick. History of Present Illness BRIELLE MARTE is a 32 year old female. Source of patient information was patient - Allergy list reviewed - Medication list reviewed - Feeling fine - No symptoms Brielle is a pleasant 32-year-old female who presents to our clinic today for a well-woman exam without a pap smear. She is currently on the 7th day of her menstrual cycle and reports experiencing heavier bleeding than usual this month. She notes that her menstrual periods are characterized by irregular lengths and varying degrees of heaviness in bleeding. She has not engaged in any new sexual partnerships over the past year. In October, she visited the emergency room due to a kidney stone, which she has successfully passed. She is currently taking Inositol (a vitamin supplement) for Polycystic Ovary Syndrome (PCOS). The patient wants to know if it was safe to take. She stopped the Spironolactone because it was making her sick. She is still taking metformin. She reports that it is not effectively regulating her menstrual cycle. She notes that she can see the difference when she resumes taking metformin and finds it beneficial. She tries to monitor her sugar and carbohydrate intake. Her sleep pattern is normal. However, on weekends she goes to bed at midnight. Her blood pressure is well-controlled in the clinic today at 114/76. She denies any chest pain, palpitations, or shortness of breath. Her bowels are moving well. She currently weighs 312 lbs. She has a history of anxiety for which she is taking Celexa 20 mg as directed with no concerns. Current Medication - CeleXA 20 MG Oral Tablet 1 1/2 tab PO qd., 90 days, 3 refills - metFORMIN HCl 500 MG Oral Tablet 2 BID, 90 days, 3 refills Past Medical/Surgical History Reported: LMP: 04/23/2022. Recent Events: Reviewed PMH for frequent illnesses. : 0, para 0, and aborta 0. Social History Tobacco use: Tobacco non-user. Marital: Single works at [employer] in the dept (04-23-22) Now living in [place]. Allergies - Bactrim - Keflex Family History Heart disease Maternal side of family Paternal: Father hyperlipidemia Maternal: Heart disease Maternal side of family anxiety Review Of Systems Systemic: No edema. Head: No headache. Cardiovascular: No chest pain or discomfort. Pulmonary: No shortness of breath. Gastrointestinal: Normal appetite. Neurological: No dizziness. Physical Findings - Vitals taken 01/12/2023 11:23 am BP-Sitting R 114/76 mmHg 100 - 120/56 - 80 BP Cuff Size Regular Pulse Rate-Sitting 87 bpm 50 - 100 Respiration Rate 18 per min 18 - 26 Height 64 in 60 - 69 Weight 312 lbs 98 - 183 Body Mass Index 53.6 kg/m2 Body Surface Area 2.4 m2 Oxygen Saturation 97 % 93 - 100 General Appearance: - Well-appearing. - Alert. - Well developed. - Well nourished. - In no acute distress. Neck: Suppleness: - Neck demonstrated no decrease in suppleness. Thyroid: - Showed no abnormalities. Eyes: General/bilateral: Pupils: - Normal. Ears: General/bilateral: Tympanic Membrane: - Normal. Nose: General/bilateral: Cavity: - No nasal cavity abnormalities. Pharynx: Oropharynx: - Normal. Lymph Nodes: - No adenopathy. Chest: - No thoracic deformity was seen. Breasts: General/bilateral: - Nipples showed no abnormalities. - No dimpling was seen in the breast. - No breast mass was found. - No breast implant was found. - No tenderness of breast. Lungs: - Clear to auscultation. Cardiovascular: Heart Rate And Rhythm: - Normal. Heart Sounds: - Normal. Murmurs: - No murmurs were heard. Arterial Pulses: - Equal bilaterally and normal. Edema: - Not present. Abdomen: Palpation: - Abdominal palpation revealed no abnormalities. Neurological: - Memory was unimpaired. - Judgement was not impaired. Cranial Nerves: - Normal. Psychiatric: - Mood was calm. Assessment - [Z00.00 - Encounter for general adult medical examination without abnormal findings] Routine history and physical - [N94.6 - Dysmenorrhea, unspecified] Dysmenorrhea - [F41.9 - Anxiety disorder, unspecified] Anxiety disorder NOS Therapy - Reviewed & agreed to staff entries. - Medication list reviewed. - Education and instructions. - Clinical summary provided to patient. - Explanation of plan: patient/guardian states understanding of and agreement to treatment options and plan. Plan StartCited - Anxiety disorder, unspecified CeleXA 20 MG tablet 1 1/2 tab PO qd., 90 days, 3 refills EndCited StartCited - Other Follow-up 6 months Lisdexamfetamine Dimesylate 30 MG each One tablet daily, 30 days, 0 refills EndCited Refills on the medications were provided. You can try Vyvanse; the biggest side effect is vivid dreams. You can start with 30 mg, and take one tablet daily. Made aware that Inositol might interact with diabetic medications. We discussed lifestyle recommendations including the importance of a healthy diet and exercising as tolerated. Maintain a healthy diet. Encouraged to walk in the form of exercise. Stay well hydrated. Have more water. Follow up as scheduled. IMilagro, scribing the following service on behalf of Dr. Jelena Harden on 01/12/2023. This note has been reviewed by the provider before submitting. Practice Management Use of tobacco assessment performed. Health Reminders - Assess BMI satisfied 01/12/2023. - Assess Tobacco Use satisfied 01/12/2023. - Follow up plan for Depression Screening satisfied 01/12/2023.
--- OUTSIDE RECORDS SUMMARY | 2024-06-28 09:44 | XMS_ITS | Clinical Summary ---
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 Gender Identity Not on file Sexual Orientation Not on file Obstetrics History Last Filed Vital Signs Vital Sign Reading Time Taken Comments Blood Pressure 122/86 03/25/2021 10:28 AM WRINGER OPERATOR Pulse 85 03/25/2021 10:28 AM WRINGER OPERATOR Temperature 36.9 C (98.4 F) 03/25/2021 10:28 AM WRINGER OPERATOR Respiratory Rate 16 03/25/2021 10:28 AM WRINGER OPERATOR Oxygen Saturation 97% 03/25/2021 10:28 AM WRINGER OPERATOR Inhaled Oxygen Concentration - - Weight 135.2 kg (298 lb) 03/25/2021 10:28 AM WRINGER OPERATOR Height 162.6 cm (5' 4 ) 03/25/2021 10:28 AM WRINGER OPERATOR Body Mass Index 51.15 03/25/2021 10:28 AM WRINGER OPERATOR Plan of Treatment Not on file Insurance [facility] CHOICE PLUS [facility] HMO/PPO Address: [facility] [id number] [place], [place] [id number] Care Teams Crane Ladle Person Relationship Specialty Start Date End Date Fina Jimenez MD [address] [place] [id number] PCP - General Family Medicine 03/25/21
--- OUTSIDE RECORDS SUMMARY | 2024-06-28 09:44 | XMS_ITS | Clinical Summary ---
Author Organization [facility] Address [address] [place] [address] Phone Care Team Providers Care Facilities Operator Name Role Phone Unavailable Unavailable Unavailable Reason for Visit and Chief Complaint The Chief Complaint is: check up ~pt c/o has been having period or spotting nonstop since APR 23 Problems Includes: Problems addressed during this encounter and other active Problems All Visits Onset Date Resolved Date Provider Condition S tatus Anxiety Disorder Nos 05/28/2010 ANGEL MACARIO MD Active Last Documented On 01/12/2023 11:32AM ; [facility] Note: Unchanged Plan of Treatment f/u after testing Discussed various hormonal levels responsible. Will obtain fasting lab work and hormonal panel. If it comes out to be normal, will recommend control for 3 months. We discussed lifestyle recommendations including the importance of a healthy diet and exercising as tolerated. Maintain a healthy diet. Encouraged to walk in the form of exercise. Stay well hydrated. Have more water. - Last Documented On 06/19/2022 10:20PM ; [facility] Instructions to patient Intervention and counseling on cessation of tobacco use Last Documented On 3 3:09PM ; [facility] Assessments Includes: Assessments from this encounter Findings - [N94.6 - Dysmenorrhea, unspecified] Dysmenorrhea - Last Documented On 06/19/2022 10:20PM ; [facility] Instructions Includes: Instructions from this encounter Instructions to patient Intervention and counseling on cessation of tobacco use Last Documented On 3 3:09PM ; [facility] Medical Equipment - Implanted Devices Includes: Current Devices No Medical Equipment Recorded Medications Includes: Medications discussed during this encounter and other current Medications New / Renewed during this visit ANGEL MACARIO MD on 06/18/2022 metFORMIN HCl 500 MG Oral Tablet Provider: ANGEL Carrera 90 day supply: 360 tablet, 3 refills Diagnosis: Polycystic ovarian syndrome 2 BID Pharmacy: [facility] ([facility] - [address] , YUNG FRENCH ID, [id number] - Last Documented On 3 4:13PM By ANGEL MACARIO MD ; [facility] Current Medications (continue as prescribed) CeleXA 20 MG Oral Tablet 01/12/2023 Provider: NOE MACARIO MD Diagnosis: Anxiety disorder , unspecified 1 1/2 tab PO qd. Last Documented On 3 11:54AM By ANGEL MACARIO MD ; [facility] Lisdexamfetamine Dimesylate 30 MG Oral Capsule 01/12/2023 Provider: ANGEL Carrera Diagnosis: One tablet daily Last Documented On 3 11:53AM By ANGEL MACARIO MD ; [facility] Medications Administered Includes: Administered Medications from this encounter No Administered Medications Recorded Vital Signs Includes: Vital Signs from this encounter Vital Name 06/18/2022 03:09P Blood Pressure Sitting L 130/76 BP Cuff Size Large Pulse Rate-Sitting (bpm) 92 Respiration Rate (breaths/min) 20 Height (in) 64 Weight (lb) 308 Body Mass Index 52.9 Body Surface Area 2.4 Oxygen Saturation (%) 97 Last Documented: On 06/18/2022 3:10PM ; [facility] Results Includes: Results discussed during this encounter No Results Recorded For Specified Dates History of Present Illness Includes: History of Present Illness from this encounter SOL MARTE is a 32 year old female. Source of patient information was patient ? Allergy list reviewed ? Medication list reviewed - Feeling fine - No chest pain or discomfort - No dyspnea - and No cough - No abdominal pain Patient is a 32-year-old female who presents to our office today for checkup. She complains of having period/non-stop spotting since 04/23/22. She reports hair loss. she lost hair 6 months ago which was 6 months after COVID, but it was coming back. She is now losing it again and is much less stressed. She has noticed that when she is on her periods (regularly), she feels warm and hot to touch. She denies any nipple discharge. She denies any significant pain, however, she does have a little bit of cramping. She denies any bowel or bladder concerns. Of interest she started a new job 04-23-22. She also had a normal pelvic u/s in 12-12. Social History Description Last Updated Single works at [employer] in the dept (04-23-22) ~Now living in [place] 06/18/2022 Last Documented On 3 10:20PM ; [facility] Tobacco non-user 06/18/2022 Last Documented On 3 10:20PM ; [facility] Smoking Status Unknown Procedures and Surgical History Includes: Procedures from this encounter Procedures Code Diagnosis Performing Provider Service L ocation Service Date education and instructions Last Documented On 3 9:48PM ; [facility] intervention and counseling on cessation of toba account advisor use 4000F Last Documented On 3 3:09PM ; [facility] explanation of plan : patien t/guardian states understanding of and agreement to treatment options and plan Last Documented On 3 9:48PM ; [facility] medication list reviewed Last Documented On 3 9:48PM ; [facility] use of tobacco assessment performed 1000F Last Documented On 3 3:09PM ; [facility] standardized depression screening: negative for symptoms [id number] Last Documented On 3 3:09PM ; [facility] assessment of suicide risk performed Last Documented On 3 3:09PM ; [facility] screening for adult depression: impressi on and score 0 Last Documented On 3 3:09PM ; [facility] Reviewed & agreed to staff entries. Last Documented On 3 9:48PM ; [facility] Clinical summary provided to patient Last Documented On 3 9:48PM ; [facility] Medical History Includes: Medical History addressed during this encounter Description Last Updated LMP: 04/23/2022 06/18/2022 Last Documented On 3 10:20PM ; [facility] Aborta 0 01/05/2012 Last Documented On 3 3:08PM ; [facility] 0 01/05/2012 Last Documented On 3 3:08PM ; [facility] Para 0 01/05/2012 Last Documented On 3 3:08PM ; [facility] Reviewed PMH for frequent illnesses 10/2010 Last Documented On 3 3:08PM ; [facility] Family History Includes: Family History addressed during this encounter Description Last Updated Paternal history of father hyperlipidemi a 10/23/2017 Last Documented On 3 3:08PM ; [facility] Maternal history of family h istory of heart disease Maternal side of family ~anxiety 07/01/2016 Last Documented On 3 3:08PM ; [facility] Family history of heart disease Maternal side of family 01/05/2012 Last Documented On 3 3:08PM ; [facility] Review of Systems Includes: Review of Systems [...] Exam Includes: Physical Exam from this encounter Immunizations Includes: Immunizations addressed during this encounter Vaccine Dose # Date Site Reaction(s) Status Source COVID-19 Moderna 1 05/04/2020 Right Arm Co mplete (Reported) Patient Last Documented On 3 3:08PM ; [facility] COVID-19 Moderna 2 06/12/2020 Right Arm Complete ( Reported) Patient Last Documented On 3 3:08PM ; [facility] COVID-19 Moderna 3 03/28/2021 Right Deltoid Comple te (Reported) Patient Last Documented On 3 3:08PM ; [facility] DTP 1 1989 Complete (Reported) P atient Last Documented On 3 3:08PM ; [facility] DTP 2 1989 Complete (Reported) P atient Last Documented On 3 3:08PM ; [facility] DTP 3 1989 Complete (Reported) P atient Last Documented On 3 3:08PM ; [facility] DTP 4 08/26/1990 Complete (Reported) P atient Last Documented On 3 3:08PM ; [facility] DTP 5 06/05/1994 Complete (Reported) P atient Last Documented On 3 3:08PM ; [facility] Hep B (Engerix-B/Recombivax HB) Ped/Adult 3 dose 1 01/09/1999 Complete (Reported) Pa tient Last Documented On 3 3:08PM ; [facility] Hep B (Engerix-B/Recombivax HB) Ped/Adult 3 dose 2 02/28/1999 Complete (Reported) Pa tient Last Documented On 3 3:08PM ; [facility] Hep B (Engerix-B/Recombivax HB) Ped/Adult 3 dose 3 07/04/1999 Complete (Reported) Pa tient Last Documented On 3 3:08PM ; [facility] Hib 1 05/27/1990 Complete (Reported) P atient Last Documented On 3 3:08PM ; [facility] HPV, (quadrivalent) Gardasil 1 10/28/2006 Complete (Reported) Patient Last Documented On 3 3:08PM ; [facility] HPV, (quadrivalent) Gardasil 2 12/31/2006 Complete (Reported) Patient Last Documented On 3 3:08PM ; [facility] HPV, (quadrivalent) Gardasil 3 06/24/2007 Complete (Reported) Patient Last Documented On 3 3:08PM ; [facility] Influenza (Quadrivalent) , 0.25ml (MDV) 6-35mo. 1 02/09/2019 Right Arm Complete (Reported ) Patient Last Documented On 3 3:08PM ; [facility] Influenza (Trivalent) split virus-PF (ID) 1 11/10/2013 Right Arm Complete (Reported) Patie nt Last Documented On 3 3:08PM ; [facility] Influenza-( TRIVALENT PF) 3 yr & Older 1 01/16/2015 Left Arm Complete (Reported) Patient Last Documented On 3 3:08PM ; [facility] Influenza-( TRIVALENT PF) 3 yr & Older 2 12/06/2015 Left Arm Complete (Reported) Patient Last Documented On 3 3:08PM ; [facility] MMR 1 05/27/1990 Complete (Reported) P atient Last Documented On 3 3:08PM ; [facility] MMR 2 06/05/1994 Complete (Reported) P atient Last Documented On 3 3:08PM ; [facility] OPV 1 1990 Complete (Reported) P atient Last Documented On 3 3:08PM ; [facility] OPV 2 1990 Complete (Reported) P atient Last Documented On 3 3:08PM ; [facility] OPV 3 1989 Complete (Reported) P atient Last Documented On 3 3:08PM ; [facility] OPV 4 08/26/1990 Complete (Reported) P atient Last Documented On 3 3:08PM ; [facility] OPV 5 06/05/1994 Complete (Reported) P atient Last Documented On 3 3:08PM ; [facility] Td (Decavac) 1 10/26/2003 Complete (Report ed) Patient Last Documented On 3 3:08PM ; [facility] Allergies Includes: Active Allergies Substance Type Reaction Onset Date Resolved Date Statu s Keflex Allergy 07/14/2008 Active Last Documented On 3 11:24AM ; [facility] Bactrim Allergy 07/14/2008 Active Last Documented On 3 11:24AM ; [facility] Encounters Encounter Provider Location Date Check-In Time Check-Out Time Diagnosis CHECK UP ANGEL MACARIO MD [facility] 06/19/19 23 2:53PM 4:11PM Dysmenorrhea Insurance Includes: Active Insurance Policies Plan Name Member ID Group # Subscriber Relationship Effect sharla Dates 1 - [facility] [id number] JASON MARTE Self Clinical Notes Includes: Clinical Notes from this encounter * Progress note Date Encounter Last Documented by 06/18/2022 CHECK UP Last documented on 06/19/2022; 10:20 PM, ANGEL MACARIO MD; [facility] Active Problems & Conditions - 300.00 - Anxiety Disorder Nos Chief Complaint The Chief Complaint is: Check up pt c/o has been having period or spotting nonstop since APR 23. History of Present Illness JASON MARTE is a 32 year old female. Source of patient information was patient - Allergy list reviewed - Medication list reviewed - Feeling fine - No chest pain or discomfort - No dyspnea - and No cough - No abdominal pain Patient is a 32-year-old female who presents to our office today for checkup. She complains of having period/non-stop spotting since 04/23/22. She reports hair loss. she lost hair 6 months ago which was 6 months after COVID, but it was coming back. She is now losing it again and is much less stressed. She has noticed that when she is on her periods (regularly), she feels warm and hot to touch. She denies any nipple discharge. She denies any significant pain, however, she does have a little bit of cramping. She denies any bowel or bladder concerns. Of interest she started a new job 04-23-22. She also had a normal pelvic u/s in 12-12. Current Medication - CeleXA 20 MG Oral Tablet 1 1/2 tab PO qd., 90 days, 3 refills - metFORMIN HCl 500 MG Oral Tablet 2 BID, 90 days, 3 refills Past Medical/Surgical History Reported: LMP: 04/23/2022. Recent Events: Reviewed PMH for frequent illnesses. : 0, para 0, and aborta 0. Social History Tobacco use: Tobacco non-user. Marital: Single works at [employer] in the dept (04-23-22) Now living in [place]. Allergies - Bactrim - Keflex Family History Heart disease Maternal side of family Paternal: Father hyperlipidemia Maternal: Heart disease Maternal side of family anxiety Review Of Systems Systemic: No edema. Head: No headache. Cardiovascular: No chest pain or discomfort. Pulmonary: No shortness of breath. Neurological: No dizziness. Physical Findings - Vitals taken 06/18/2022 03:09 pm BP-Sitting L 130/76 mmHg 100 - 120/56 - 80 BP Cuff Size Large Pulse Rate-Sitting 92 bpm 50 - 100 Respiration Rate 20 per min 18 - 26 Height 64 in 60 - 69 Weight 308 lbs 98 - 183 Body Mass Index 52.9 kg/m2 Body Surface Area 2.4 m2 Oxygen Saturation 97 % 93 - 100 General Appearance: - Alert. - Well developed. - Well nourished. - In no acute distress. Ears: Right Ear: Tympanic Membrane: - Normal. Left Ear: Tympanic Membrane: - Normal. Lymph Nodes: - Normal. Lungs: - Clear to auscultation. Cardiovascular: Heart Rate And Rhythm: - Normal. Murmurs: - No murmurs were heard. Edema: - Not present. Abdomen: Palpation: - No direct tenderness in the abdomen. Neurological: - Memory was unimpaired. - Judgement was not impaired. Psychiatric: Psychiatric: Value Normal Range PHQ9 score: 0 - Mood was calm. Skin: - Mucous membranes were not dry. Assessment - [N94.6 - Dysmenorrhea, unspecified] Dysmenorrhea Therapy - Reviewed & agreed to staff entries. - Medication list reviewed. - Education and instructions. - Intervention and counseling on cessation of tobacco use. - Assessment of suicide risk performed - Clinical summary provided to patient. - Explanation of plan: patient/guardian states understanding of and agreement to treatment options and plan. Vaccinations - OPV Dose #1 Status: Prev Hist Date: 1989 - DTP Dose #1 Status: Prev Hist Date: 1989 - OPV Dose #2 Status: Prev Hist Date: 1989 - DTP Dose #2 Status: Prev Hist Date: 1989 - DTP Dose #3 Status: Prev Hist Date: 1989 - OPV Dose #3 Status: Prev Hist Date: 1989 - Hib Dose #1 Status: Prev Hist Date: 05/27/1990 - MMR Dose #1 Status: Prev Hist Date: 05/27/1990 - DTP Dose #4 Status: Prev Hist Date: 08/26/1990 - OPV Dose #4 Status: Prev Hist Date: 08/26/1990 - OPV Dose #5 Status: Prev Hist Date: 06/05/1994 - DTP Dose #5 Status: Prev Hist Date: 06/05/1994 - MMR Dose #2 Status: Prev Hist Date: 06/05/1994 - Hep B (Engerix-B/Recombivax HB) Ped/Adult 3 dose Dose #1 Status: Prev Hist Date: 01/09/1999 - Hep B (Engerix-B/Recombivax HB) Ped/Adult 3 dose Dose #2 Status: Prev Hist Date: 02/28/1999 - Hep B (Engerix-B/Recombivax HB) Ped/Adult 3 dose Dose #3 Status: Prev Hist Date: 07/04/1999 - Td (Decavac) Dose #1 Status: Prev Hist Date: 10/26/2003 - HPV, (quadrivalent) Gardasil Dose #1 Status: Prev Hist Date: 10/28/2006 - HPV, (quadrivalent) Gardasil Dose #2 Status: Prev Hist Date: 12/31/2006 - HPV, (quadrivalent) Gardasil Dose #3 Status: Prev Hist Date: 06/24/2007 - Influenza (Trivalent) split virus-PF (ID) Dose #1 Status: Prev Hist Date: 11/10/2013 - Influenza-( TRIVALENT PF) 3 yr & Older Dose #1 Status: Prev Hist Date: 01/16/2015 - Influenza-( TRIVALENT PF) 3 yr & Older Dose #2 Status: Prev Hist Date: 12/06/2015 - Influenza (Quadrivalent) , 0.25ml (MDV) 6-35mo. Dose #1 Status: Prev Hist Date: 02/09/2019 - COVID-19 Moderna Dose #1 Status: Prev Hist Date: 05/04/2020 - COVID-19 Moderna Dose #2 Status: Prev Hist Date: 06/12/2020 - COVID-19 Moderna Dose #3 Status: Prev Hist Date: 03/28/2021 Plan StartCited - Dysmenorrhea, unspecified Lab: TSH Lab: LIPID PANEL Lab: CMP Lab: CBC WITH DIFF Lab: FSH & LH SERUM (ADULT OVER 15 YEARS OF AGE) Lab: ESTROGEN TOTALSERUM Lab: TESTOSTERONE TOTAL EndCited StartCited - Polycystic ovarian syndrome metFORMIN HCl 500 MG tablet 2 BID, 90 days, 3 refills EndCited f/u after testing Discussed various hormonal levels responsible. Will obtain fasting lab work and hormonal panel. If it comes out to be normal, will recommend control for 3 months. We discussed lifestyle recommendations including the importance of a healthy diet and exercising as tolerated. Maintain a healthy diet. Encouraged to walk in the form of exercise. Stay well hydrated. Have more water. Practice Management Use of tobacco assessment performed; Standardized depression screening: negative for symptoms and for adult impression and score 0.
[2024-06-28 09:59] LABS: Alanine Aminotransferase 31 U/L (6-35); Albumin Level 4.4 g/dL (3.5-5.1); Alkaline Phosphatase 61 U/L (38-126); Anion Gap 8 mmol/L (4-12); Aspartate Amino Transferase 25 U/L (14-36); Bilirubin,Total 0.4 mg/dL (0.2-1.3); Blood Urea Nitrogen 12 mg/dL (7-17); Calcium 8.9 mg/dL (8.4-10.2); Carbon Dioxide 25 mmol/L (22-30); Chloride 104 mmol/L (98-107); Cholesterol 157 mg/dL (0-200); Estimated Glomerular Filt Rate > 60; Glucose 81 mg/dL (65-110); HDL Direct 50 mg/dL; Potassium 4.2 mmol/L (3.4-5.0); Sodium 137 mmol/L (137-145); Triglycerides 80 mg/dL (<150)
[2024-06-28 10:02] LABS: Erythrocyte Sedimentation Rate 48 mm/hr (0-20)
[2024-06-28 10:05] LABS: CRP < 0.5 mg/dL (<1.0)
[2024-06-28 10:10] LABS: LDL Cholesterol Direct 72 mg/dL
[2024-06-28 10:54] LABS: Iron 89 ug/dL (37-170)
[2024-06-28 11:03] LABS: Percent Iron Saturation 24 % (20-50)
[2024-06-28 12:00] LABS: Hemoglobin A1C 5.2 % (<5.7)
== END 2024-06-28 09:05 | disposition home or self-care (01) ==
PROVIDERS: PCP Family Medicine; Referring Provider Internal Medicine Hematology & Oncology; Visit Provider Family Medicine
DX: D75.838 Other thrombocytosis (principal); D64.9 Anemia, unspecified; R73.03 Prediabetes; E78.2 Mixed hyperlipidemia
CPT/HCPCS: 36415; 80053; 80061; 82728; 83036; 83540; 83550; 85652; 86140

== ENCOUNTER 2024-07-04 15:19 | Outpatient (CLI) | payer OTHER, SELFPAY ==
[2024-07-04 15:31] LABS: Basophils Absolute Auto 0.1 K/mm3 (0.0-0.1); Eosinophils Absolute Auto 0.3 K/mm3 (0-0.3); Eosinophils Percent Auto 3.1 % (0-4.4); Hematocrit 39.8 % (37.0-47.0); Hemoglobin 13.4 g/dL (12.0-15.0); Immature Granulocyte Absolute 0.02 K/mm3 (0.00-0.031); Immature Granulocyte Percent A 0.2 % (0-0.5); Lymphocytes Absolute Auto 3.47 K/mm3 (0.9-3.2); Mean Corpuscular HGB Conc 33.7 g/dl (32-36); Mean Corpuscular Hemoglobin 32.2 pg (26-34); Mean Corpuscular Volume 95.7 fl (80-100); Mean Platelet Volume 9.6 fl (7.4-10.4); Monocytes Absolute Auto 0.7 K/mm3 (0.1-0.6); Monocytes Percent Auto 6.8 % (2.6-8.5); Neutrophils Absolute Auto 5.9 K/mm3 (1.3-6.7); Neutrophils Percent Auto 55.9 % (45.5-73.1); Platelet Count Result 443 k/mm3 (150-375); Red Blood Count 4.16 M/mm3 (4.2-5.4); Red Cell Distribution Width 12.5 % (11.5-14.5); White Blood Count 10.5 K/mm3 (4.5-10.0)
--- OUTSIDE RECORDS SUMMARY | 2024-07-04 17:16 | XMS_ITS | Encounter Summary ---
Author Organization [facility] Address [address] [place] [address] Care Team Providers Care Code Enforcement Officer Name Role Phone Fina Bowles MD Primary Care Provider [phone] Reason for Visit * Reason Comments Follow Up Encounter Details Date Type Department Care Team (Late st Contact Info) Description 07/04/2024 3:45 PM CDT Office Visit [facility]ology - [place] [address] [facility] [address] [place] [address] Suraj Denise MD [address] [facility] [address] [place] [address] Chronic anemia (Primary Dx) Social History Tobacco Use Types Packs/Day Years Used Date Smoking Tobacco: Never Tobacco Cessation:Counseling Given: Not Answered Alcohol Use Standard Drinks/Week Comments Yes 0 (1 standard drink = 0.6 oz pur e alcohol) Ocassionally Comments Unknown Sex and Gender Information Value Date Recorded Sex Assigned at Female 02/15/2024 5:10 PM SALES ACCOUNT REPRESENTATIVE Legal Sex Female 11:44 AM CDT Gender Identity Female 02/15/2024 5:10 PM SALES ACCOUNT REPRESENTATIVE Sexual Orientation Not on file documented as of this encounter Last Filed Vital Signs Vital Sign Reading Time Taken Comments Blood Pressure 102/71 07/04/2024 3:35 PM CDT Pulse 84 07/04/2024 3:35 PM CDT Temperature 36.7 C (98 F) 07/04/2024 3:35 PM CDT Respiratory Rate 16 07/04/2024 3:35 PM CDT Oxygen Saturation 98% 07/04/2024 3:35 PM CDT Inhaled Oxygen Concentration - - Weight 103.6 kg (228 lb 6.4 oz) 07/04/2024 3:35 PM CDT Height - - Body Mass Index 39.2 02/11/2024 3:13 PM SALES ACCOUNT REPRESENTATIVE documented in this encounter Progress Notes * Suraj Denise MD - 07/04/2024 4:10 PM CDT HEMATOLOGY / ONCOLOGY PROGRESS NOTE Patient Identification: Name: Brielle Lopez Age: 34 y.o. Sex: female : 1990 DIAGNOSIS Reactive leukocytosis CURRENT TREATMENT vitamin TREATMENT HISTORY SUBJECTIVE Patient came to the office for follow-up visit. She denies any tiredness and fatigue. No fevers andchills. She has lost 20 pound weight. No other new complaint. Review of system Constitutional: Patient did not mention fevers, sweats, denies any tiredness and fatigue, 20 pound weight loss HEENT: Patient did not mention sinus congestion, hearing or vision problems Respiratory: Patient did not mention cough, dyspnea, wheeze Cardiovascular: Patient did not mention chest pain, exertional chest pressure/discomfort, nausea, syncope, shortness of breath GI: Patient did not mention constipation, diarrhea, dsyphagia, reflux symptoms, vomiting, melena : Patient did not mention dysuria, frequency, incontinence, urgency Integumentary system: no lymphadenopathy, sweats, flushing Musculoskeletal: Patient not mention: myalgia, arthralgia Neurological: Patient did not mention blurry or disturbed vision, numbness/weakness, dizziness Skin: No lumps, bumps or rashes. 12 point review of system was reviewed Objective: Vital signs in last 24 hours: As per nursing note Exam: General appearance: alert, cooperative, no distress, appears stated age Head: normocephalic, without obvious abnormality, atraumatic Eyes: conjunctivae/corneas clear, EOM's intact Ears: normal external ear canals AU Nose: Nares normal. Septum midline. Mucosa normal. No drainage or sinus tenderness Throat: Lips, mucosa, and tongue normal. Teeth and gums normal Neck: supple, symmetrical, trachea midline. Lungs: clear to auscultation bilaterally Heart: regular rate and rhythm, S1, S2 normal, no murmur, click, rub or gallop Abdomen: soft, non-tender. Bowel sounds normal. No masses, No organomegaly Extremities: extremities normal, atraumatic, no cyanosis or edema Skin: Skin color, texture, turgor normal. No rashes or lesions Lymph nodes: No lymphadenopathy Neuro: No obvious focal deficit Exam as above PATH LABS Labs from February 10 showed WBC 10.4 hemoglobin 13.6 platelet 383,000 ESR 54 total protein 9.0 AST31 ALT 37 iron 51 saturation 14 ferritin 15.7 Labs from July 04 showed WBC 10.5 hemoglobin 13.4 platelet 443,000 iron 89 saturation 24 ferritin 18.6 Assessment: Plan: There are no active problems to display for this patient. Reactive thrombocytosis. History of PCOS. Sedimentation rate came back elevated. Labs showed elevated platelet count. Iron studies came back normal patient is not taking vitamin as she is trying to get . Follow-up in 4 months. We will continue to avoid aspirin due to previous history of heavy menstrual blood loss. Elevated serum protein. Serum protein came back normal. Depression. Stable on Celexa. PCOS. She is on spironolactone. Follow-up in 6 months. 07/04/2024 Suraj Denise MD documented in this encounter Plan of Treatment Upcoming Encounters Date Type Department Care Team (Late st Contact Info) Description 11/03/2024 3:45 PM CDT Office Visit [facility] - [place] [address] [facility] [address] [place] [address] Suraj Denise MD [address] [facility] [address] [place] [address] Scheduled Orders Name Type Priority Associated Diagnoses Orde r Schedule FERRITIN Lab Routine Chronic anemia Expected: 10/24/2024, Expires: 07/04/2025 IRON, TIBC, AND PERCENT SATURATION Lab Routine Chronic anemia Expected: 10/24/2024, Expires: 07/04/2025 CBC WITH DIFFERENTIAL Lab Stat Chronic anemia Expected: 10/24/2024, Expires: 07/04/2025 documented as of this encounter Visit Diagnoses Diagnosis Chronic anemia- Primary Anemia, unspecified documented in this encounter Care Teams Code Enforcement Officer Relationship Specialty Start Date End Date Fina Bowles MD [address] [place] [id number] PCP - General Family Practice 03/10/24 documented as of this encounter
--- OUTSIDE RECORDS SUMMARY | 2024-07-04 17:16 | XMS_ITS | Clinical Summary ---
Author Organization [facility] [[email or web address]] Address [address] [place] [address] Phone Care Team Providers Care Asphalt Coater Name Role Phone Unavailable Unavailable Unavailable Reason for Visit and Chief Complaint RX ISSUE/REFILL Problems Includes: Problems addressed during this encounter and other active Problems All Visits Onset Date Resolved Date Provider Condition S tatus Anxiety Disorder Nos 05/28/2010 ANGEL MACARIO MD Active Last Documented On 01/12/2023 11:32AM ; [facility] [[email or web address]] Note: Unchanged Plan of Treatment No Plan [...] syndrome One tablet daily Pharmacy: [facility], [id number] - Last Documented On 01/12/2023 11:24AM By Carolyn ASHBY ; [facility] [[email or web address]] Current Medications (continue as prescribed) CeleXA 20 MG Oral Tablet 01/12/2023 Provider: NOE MACARIO MD Diagnosis: Anxiety disorder , unspecified 1 1/2 tab PO qd. Last Documented On 11:54AM By ANGEL MACARIO MD ; [facility] Lisdexamfetamine Dimesylate 30 MG Oral Capsule 01/12/2023 Provider: ANGEL Carrera Diagnosis: One tablet daily Last Documented On 10/23/202 3 11:53AM By ANGEL MACARIO MD ; [facility] metFORMIN HCl 500 MG Oral Tablet 06/18/2022 Provider: ANGEL Carrera Diagnosis: Polycystic ovari an syndrome 2 BID Last Documented On 3 4:13PM By AGNEL MACARIO MD ; [facility] [[email or web address]] Medications Administered Includes: Administered Medications from this [...] Active Last Documented On 3 11:24AM ; [facility] Bactrim Allergy 07/14/2008 Active Last Documented On 3 11:24AM ; [facility] [[email or web address]] Encounters Encounter Provider Location Date Check-In Time Check-Out Time Diagnosis RX ISSUE/REFILL ANGEL MACARIO MD 07/16/2022 10:26AM 11:59PM Insurance Includes: Active Insurance Policies Plan Name Member ID Group # Subscriber Relationship Effect sharla Dates 1 - [facility] [id number] JASON MARTE Self Clinical Notes Includes: Clinical Notes from this encounter No Clinical Notes Recorded
--- OUTSIDE RECORDS SUMMARY | 2024-07-04 17:16 | XMS_ITS | Clinical Summary ---
Author Organization [facility] [address] Address [address] [place] [address] Care Team Providers Care Drilling Plant Operator Name Role Phone Fina Bowles MD Primary Care Provider [phone] Allergies Active Allergy Reactions Criticality Noted Date Comments Cephalexin Hives High 02/11/2024 Sulfamethoxazole-Trimethoprim Hives High 2023 Medications Ozempic 2 mg/dose (8 mg/3 mL) Pen Injector ADMINISTER 2 MG UNDER THE SKIN WEEKLY 4 Active metFORMIN (GLUCOPHAGE XR) 500 mg Extended Release 24 hour tablet Take 1 Tablet by mouth 2 times daily. 4 Active spironolactone (ALDACTONE) 25 mg tablet Take 1 Tablet by mouth daily. 4 Active citalopram (CeleXA) 20 mg tablet Take 20 mg by mouth daily. Active cholecalciferol 1,250 mcg (50,000 unit) Capsule Take 50,000 Units by mouth every 7 days. Active Active Problems No known active problems Encounters Date Type Department Care Team Description 07/04/2024 3:45 PM CDT Office Visit [facility] - [address] [place] [id number] Suraj Denise MD Chronic anemia (Primary Dx) 06/29/2024 Orders Only [facility] [address] [place] [phone] Suraj Denise MD 06/08/2024 External Device Data ST[facility] ABSTRACTION Provider, [...] Sex Assigned at Female 02/15/2024 5:10 PM CONCRETE GUN OPERATOR Legal Sex Female 11:44 AM CDT Gender Identity Female 02/15/2024 5:10 PM CONCRETE GUN OPERATOR Sexual Orientation Not on file Last Filed [...] 6.4 oz) 07/04/2024 3:35 PM CDT Height 162.6 cm (5' 4 ) 02/11/2024 3:13 PM CONCRETE GUN OPERATOR Body Mass Index 39.2 02/11/2024 3:13 PM CONCRETE GUN OPERATOR Plan of Treatment Upcoming Encounters Date Type Department Care Team (Late st Contact Info) Description 11/03/2024 3:45 PM CDT Office Visit [facility] - [address] [facility] [address] [place] [address] Suraj Denise MD [address] [facility] [address] [place] [address] Health Maintenance Due Date Last Done Comments Pre-Diabetes and Diabetes Screening 1989 DTAP/TDAP/TD VACCINES (1 - Tdap) 02/15/2008 HEPATITIS B VACCINES (1 of 3 - 19+ 3-dose series) 02/15/2008 HPV/Cotest (21-29) 2010 CERVICAL CANCER SCREENING 2019 HPV/Cotest (30-65) 2019 PAP SMEAR 2019 INFLUENZA VACCINE (#1) 2023 Preventative Visit- Commercial 03/23/2024 HPV VACCINES Aged Out No longer eligi ble based on patient's age to complete this topic Procedures Procedure Name Priority Date/Time Associated Diagnosis Comments IRON PANEL Routine 06/28/2024 8:14 AM CDT from Last 3 Months Results * IRON PANEL (06/28/2024 8:14 AM CDT) Blood Suraj Denise MD CHEMISTRY ORDERABLES Final Resu lt from Last 3 Months Insurance [facility] [id number] Care Teams Drilling Plant Operator Relationship Specialty Start Date End Date Fina Bowles MD [address] [place] [phone] PCP - General Family Practice 03/10/24
--- OUTSIDE RECORDS SUMMARY | 2024-07-04 17:16 | XMS_ITS | Referral Summary ---
Author Organization [facility] [address] Address [address] [place] [phone] Care Team Providers Care Pallet Repairer Name Role Phone Elving-Fina Poole MD Primary [...] on file Legal Sex Female 4:15 PM INTERNATIONAL LOGISTICS COORDINATOR Gender Identity Not on file Sexual Orientation Not on file Last Filed Vital Signs Vital Sign Reading Time Taken Comments Blood Pressure 122/86 03/25/2021 10:28 AM INTERNATIONAL LOGISTICS COORDINATOR Pulse 85 03/25/2021 10:28 AM INTERNATIONAL LOGISTICS COORDINATOR Temperature 36.9 C (98.4 F) 03/25/2021 10:28 AM INTERNATIONAL LOGISTICS COORDINATOR Respiratory Rate 16 03/25/2021 10:28 AM INTERNATIONAL LOGISTICS COORDINATOR Oxygen Saturation 97% 03/25/2021 10:28 AM INTERNATIONAL LOGISTICS COORDINATOR Inhaled Oxygen Concentration - - Weight 135.2 kg (298 lb) 03/25/2021 10:28 AM INTERNATIONAL LOGISTICS COORDINATOR Height 162.6 cm (5' 4 ) 03/25/2021 10:28 AM INTERNATIONAL LOGISTICS COORDINATOR Body Mass Index 51.15 03/25/2021 10:28 AM INTERNATIONAL LOGISTICS COORDINATOR Plan of Treatment Not on file Insurance [facility] [employer] Care Teams Pallet Repairer Relationship Specialty Start Date End Date Fina Jimenez MD [address] [place] [phone] PCP - General Family Medicine 03/25/21
--- OUTSIDE RECORDS SUMMARY | 2024-07-04 17:17 | XMS_ITS ---
Author Organization [facility] Address [address] [place] [address] Phone Care Team Providers Care Roustabout Crew Name Role Phone Unavailable Unavailable Unavailable Problems Includes: Active, inactive, and resolved Problems All Visits Onset Date Resolved Date Provider Condition S tatus Anxiety Disorder Nos 05/28/2010 ANGEL MACARIO MD Active Last Documented On 01/12/2023 11:32AM ; [facility] Note: Unchanged Plan of Treatment Findings Encounter Date Increase celexa to 30mg vero y. Discussed adding buspar for additional anxiety relief but will hold off for now. Call sooner if needed. ER if severe EMERGENCY ROOM FOLLOWUP-ESTABLISHED PT with JOHN FOSTER PA-C 07/18/2021 Last Documented On 2 3:00PM ; [facility] Ordered Clinical summary pro vided to patient . Plan discussed and patient/parent/caregiver states understanding EMERGENCY ROOM FOLLOWUP-ESTABLISHED PT with JOHN FOSTER PA-C 07/18/2021 Last Documented On 2 3:00PM ; [facility] Ordered follow-up visit 6 wk s. Has appt in early August EMERGENCY ROOM FOLLOWUP-ESTABLISHED PT with JOHN Varun FOSTER PA-C 07/18/2021 Last Documented On 2 3:00PM ; [facility] Ordered return to the clinic if condition worsens or new symptoms arise EMERGENCY ROOM FOLLOWUP-ESTABLISHED PT with JOHN FOSTER PA-C 07/18/2021 Last Documented On 2 3:00PM ; [facility] Ordered Clinical summary pro vided to patient . Plan discussed and patient/parent/caregiver states understanding WELL WOMAN EXAM with JOHN FOSTER PA-C 03/07/2020 Last Documented On 0 3:36PM ; [facility] Ordered follow-up visit 1 jonel [...] 03/07/2020 Last Documented On 0 3:36PM ; [facility] Ordered return to the clinic if condition worsens or new symptoms arise WELL WOMAN EXAM with JOHN FOSTER PA-C 03/07/2020 Last Documented On 0 3:36PM ; [facility] Ordered Clinical summary pro vided to patient . Plan discussed and patient understands SICK VISIT with JOHN FOSTER PA-C 06/07/2013 Last Documented On 4 8:48AM ; [facility] Ordered follow-up visit as n eeded with an office visit. Fluids, rest, hot steamy showers, vicks. Musinex DM is good for cough/congestion. Allergy med--rob/claritin/zyrtec. Call if symptoms worsen/persist beyond 5 days SICK VISIT with JOHN FOSTER PA-C 06/07/2013 Last Documented On 4 8:48AM ; [facility] Ordered Clinical summary pro vided to patient . Plan discussed and patient understands SICK VISIT with JOHN FOSTER PA-C 04/05/2013 Last Documented On 4 2:47PM ; [facility] Ordered follow-up visit as n eeded with an office visit. Salt water gargles, throat losenges. Fluids, rest. Change toothbrush after 48 hrs on antibiotic. Call if symptoms worsen/persist SICK VISIT with JOHN FOSTER PA-C 04/05/2013 Last Documented On 4 2:47PM ; [facility] RTC in 1-3 mo for [employer]. Peter nt has had Gardasil series WELL WOMAN EXAM with JOHN FOSTER PA-C 01/05/2012 Last Documented On 2 4:21PM ; [facility] Ordered follow-up visit as n eeded with an office visit.. Patient encouraged to get Sudafed OTC and to call if sx are worsening in the next few days SICK VISIT with MAN MA PA-C 07/18/2009 Last Documented On 0 3:09PM ; [facility] Ordered follow-up visit as n eeded with an office visit. SICK VISIT with MAN MA PA-C 05/03/2009 Last Documented On 0 3:02PM ; [facility] Instructions to patient Intervention and counseling on cessation of tobacco use Last Documented On 3 3:09PM ; [facility] Recommend diet and exercise at least 30 min three times per week Last Documented On 1 10:44PM ; [facility] Education and Decision Aids were provided during visit for: Patient education about self -examination of breasts ~Daily calcium (1200mg) and Vit D (800 IU) for osteoporosis prevention Last Documented On 0 2:16PM ; [facility] Discussed concerns about uns afe sexual practices Stressed condom use for STD prevention Last Documented On 0 2:16PM ; [facility] Patient education about self -examination of breasts Last Documented On 9 2:07PM ; [facility] Patient education about self -examination of breasts Last Documented On 8 2:59PM ; [facility] Patient education about self -examination of breasts Last Documented On 7 1:54PM ; [facility] Patient education about self -examination of breasts Last Documented On 6 11:21AM ; [facility] Patient education about self -examination of breasts Last Documented On 5 11:13AM ; [facility] Patient education about self -examination of breasts Last Documented On 3 9:05AM ; [facility] Patient education about self -examination of breasts Last Documented On 2 3:32PM ; [facility] Assessments Includes: Assessments for all patient encounters Findings Encounter Date Anxiety disorder NOS WELL WOMAN - ESTABL ISHED PT with ANGEL MACARIO MD 01/12/2023 Last Documented On 3 10:18PM ; [facility] Dysmenorrhea WELL WOMAN - ESTABLISHED PT with ANGEL MACARIO MD 01/12/2023 Last Documented On 3 10:18PM ; [facility] Routine history and physical WELL WOMAN - ESTABLISHED PT with ANGEL MACARIO MD 01/12/2023 Last Documented On 3 10:18PM ; [facility] Dysmenorrhea CHECK UP with ANGEL MACARIO MD 06/18/2022 Last Documented On 3 10:20PM ; [facility] Dysmenorrhea WELL WOMAN - ESTABLISHED PT with ANGEL MACARIO MD 12/10/2021 Last Documented On 2 1:41PM ; [facility] Routine gynecological exam w ith cervical pap smear WELL WOMAN - ESTABLISHED PT with ANGEL MACARIO MD 12/10/2021 Last Documented On 2 1:41PM ; [facility] Routine gynecological exam w ith cervical pap smear without abnormal findings WELL WOMAN - ESTABLISHED PT with ANGEL MACARIO MD 12/10/2021 Last Documented On 2 1:41PM ; [facility] Anxiety disorder NOS CHECK UP with ANGEL RICHARDS MD 08/27/2021 Last Documented On 2 3:04PM ; [facility] Polycystic Ovarian Syndrome (PCOS) CHECK UP with ANGEL MACARIO MD 08/27/2021 Last Documented On 2 3:04PM ; [facility] Anxiety disorder NOS EMERGENCY ROOM FOLL OWUP-ESTABLISHED PT with JOHN FOSTER PA-C 07/18/2021 Last Documented On 2 3:00PM ; [facility] Edema PROBLEM VISIT with ANGEL RICHARDS MD 06/24/2021 Last Documented On 2 11:24PM ; [facility] Anxiety disorder NOS CHECK UP with ANGEL RICHARDS MD 02/26/2021 Last Documented On 1 4:25PM ; [facility] Polycystic Ovarian Syndrome (PCOS) CHECK UP with ANGEL MACARIO MD 02/26/2021 Last Documented On 1 4:25PM ; [facility] Dysmenorrhea WELL WOMAN - ESTABLISHED PT with ANGEL MACARIO MD 11/23/2020 Last Documented On 1 11:38PM ; [facility] Overweight WELL WOMAN - ESTABLISHED PT with ANGEL MACARIO MD 11/23/2020 Last Documented On 1 11:38PM ; [facility] Polycystic Ovarian Syndrome (PCOS) WELL WOMAN - ESTABLISHED PT with ANGEL MACARIO MD 11/23/2020 Last Documented On 1 11:38PM ; [facility] Routine gynecological exam w ith cervical pap smear WELL WOMAN - ESTABLISHED PT with ANGEL MACARIO MD 11/23/2020 Last Documented On 1 11:38PM ; [facility] Routine history and physical WELL WOMAN - ESTABLISHED PT with ANGEL MACARIO MD 11/23/2020 Last Documented On 1 11:38PM ; [facility] Oligomenorrhea WELL WOMAN EXAM with JOHN Varun VENTURA PA-C 03/07/2020 Last Documented On 0 3:36PM ; [facility] Routine gynecological exam w ith cervical pap smear WELL WOMAN EXAM with JOHN E FOSTER PA-C 03/07/2020 Last Documented On 0 3:36PM ; [facility] Screen malignant neoplasm cervix WELL WO MAN EXAM with JOHN E FOSTER PA-C 03/07/2020 Last Documented On 0 3:36PM ; [facility] SCREENING FOR STD WELL WOMAN EXAM with JOHN E FOSTER PA-C 03/07/2020 Last Documented On 0 3:36PM ; [facility] Routine history and physical WELL WOMAN EXAM chago MACARIO MD 11/09/2018 Last Documented On 9 2:32PM ; [facility] Routine gynecological exam w ith cervical pap smear WELL WOMAN EXAM with ANGEL MACARIO MD 10/23/2017 Last Documented On 8 11:21PM ; [facility] Routine history and physical WELL WOMAN EXAM chago MACARIO MD 10/23/2017 Last Documented On 8 11:21PM ; [facility] Routine gynecological exam w ith cervical pap smear WELL WOMAN EXAM with ANGEL MACARIO MD 09/30/2016 Last Documented On 7 2:19PM ; [facility] Routine history and physical WELL WOMAN EXAM wit h ANGEL MACARIO MD 09/30/2016 Last Documented On 7 2:19PM ; [facility] Contraceptive management: in itiate contraception WELL WOMAN EXAM with ANGEL MACARIO MD 07/01/2016 Last Documented On 7 11:38AM ; [facility] Dysmenorrhea WELL WOMAN EXAM with ANGEL WALKER MD 07/01/2016 Last Documented On 7 11:38AM ; [facility] Normal routine history and physical WELL WOMAN EXAM with ANGEL MACARIO MD 03/26/2015 Last Documented On 6 1:00PM ; [facility] Routine gynecological exam w ith cervical pap smear WELL WOMAN EXAM with ANGEL MACARIO MD 03/26/2015 Last Documented On 6 1:00PM ; [facility] Anxiety disorder NOS WELL WOMAN EXAM with ANGEL MACARIO MD 03/24/2014 Last Documented On 5 11:35AM ; [facility] Normal routine history and physical WELL WOMAN EXAM with ANGEL MACARIO MD 03/24/2014 Last Documented On 5 11:35AM ; [facility] Routine gynecological exam w ith cervical pap smear WELL WOMAN EXAM with ANGEL MACARIO MD 03/24/2014 Last Documented On 5 11:35AM ; [facility] Upper respiratory infection SICK VISIT with CARSON FOSTER PA-C 06/07/2013 Last Documented On 4 8:48AM ; [facility] Acute pharyngitis SICK VISIT with JOHN SALINAS PA-C 04/05/2013 Last Documented On 4 2:47PM ; [facility] Normal routine history and physical WELL WOMAN EXAM with ANGEL MACARIO MD 03/22/2013 Last Documented On 3 9:18AM ; [facility] Routine gynecological exam w ith cervical pap smear WELL WOMAN EXAM with ANGEL MACARIO MD 03/22/2013 Last Documented On 3 9:18AM ; [facility] Normal routine history and physical WELL WOMAN EXAM with ANGEL MACARIO MD 03/09/2012 Last Documented On 2 3:43PM ; [facility] Routine gynecological exam w ith cervical pap smear WELL WOMAN EXAM with ANGEL MACARIO MD 03/09/2012 Last Documented On 2 3:43PM ; [facility] Menorrhagia WELL WOMAN EXAM with JOHN VENTURA PA-C 01/05/2012 Last Documented On 2 4:21PM ; [facility] Acute pharyngitis SICK VISIT with ANGEL ACKERMAN MD 08/28/2010 Last Documented On 1 3:41PM ; [facility] Anxiety disorder NOS SICK VISIT with ANGEL WALKER MD 05/28/2010 Last Documented On 1 10:45PM ; [facility] Dermatitis SICK VISIT with ANGEL WIGGINS MD 05/28/2010 Last Documented On 1 10:45PM ; [facility] Overweight SICK VISIT with ANGEL WIGGINS MD 05/28/2010 Last Documented On 1 10:45PM ; [facility] Eustachian tube dysfunction SICK VISIT with GUNJAN PATRICIA-C 07/18/2009 Last Documented On 0 3:09PM ; [facility] Upper respiratory infection SICK VISIT with GUNJAN PATRICIA-C 05/03/2009 Last Documented On 0 3:02PM ; [facility] Anxiety disorder NOS 1 MONTH CHECK with ANGEL WHITESIDE MD 02/20/2009 Last Documented On 9 11:52PM ; [facility] Depression 1 MONTH CHECK with ANGEL RICHARDS MD 02/20/2009 Last Documented On 9 11:52PM ; [facility] Anxiety disorder NOS GENERAL OFFICE VISIT with Juni MACARIO MD 01/23/2009 Last Documented On 9 10:55PM ; [facility] Dysmenorrhea GENERAL OFFICE VISIT with ANGEL MACARIO MD 01/23/2009 Last Documented On 9 10:55PM ; [facility] Fatigue GENERAL OFFICE VISIT with ANGEL MACARIO MD 01/23/2009 Last Documented On 9 10:55PM ; [facility] Instructions Includes: Instructions for all patient encounters Instructions to patient Intervention and counseling on cessation of tobacco use Last Documented On 3 3:09PM ; [facility] Recommend diet and exercise at least 30 min three times per week Last Documented On 1 10:44PM ; [facility] Education and Decision Aids were provided during visit for: Patient education about self -examination of breasts ~Daily calcium (1200mg) and Vit D (800 IU) for osteoporosis prevention Last Documented On 0 2:16PM ; [facility] Discussed concerns about uns afe sexual practices Stressed condom use for STD prevention Last Documented On 0 2:16PM ; [facility] Patient education about self -examination of breasts Last Documented On 9 2:07PM ; [facility] Patient education about self -examination of breasts Last Documented On 8 2:59PM ; [facility] Patient education about self -examination of breasts Last Documented On 7 1:54PM ; [facility] Patient education about self -examination of breasts Last Documented On 6 11:21AM ; [facility] Patient education about self -examination of breasts Last Documented On 5 11:13AM ; [facility] Patient education about self -examination of breasts Last Documented On 3 9:05AM ; [facility] Patient education about self -examination of breasts Last Documented On 2 3:32PM ; [facility] Medical Equipment - Implanted Devices Includes: Current and historical Devices No Medical Equipment Recorded Medications Includes: Current and historical Medications Current Medications (continue as prescribed) CeleXA 20 MG Oral Tablet 01/12/2023 Provider: NOE MACARIO MD Diagnosis: Anxiety disorder , unspecified 1 1/2 tab PO qd. Last Documented On 3 11:54AM By ANGEL MACARIO MD ; [facility] Lisdexamfetamine Dimesylate 30 MG Oral Capsule 01/12/2023 Provider: ANGEL Carrera Diagnosis: One tablet daily Last Documented On 3 11:53AM By ANGEL MACARIO MD ; [facility] metFORMIN HCl 500 MG Oral Tablet 06/18/2022 Provider: ANGEL Carrera Diagnosis: Polycystic ovari an syndrome 2 BID Last Documented On 3 4:13PM By ANGEL MACARIO MD ; [facility] Past Medications on file Spironolactone 50 MG Oral Tablet 07/16/2022 - 12/21/2022 Provider: ANGEL MACARIO MD Diagnosis: Polycystic ovari an syndrome One tablet daily Last Documented On 01/12/2023 11:24AM By Carolyn ASHBY ; [facility] metFORMIN HCl 500 MG Oral Tablet 12/10/2021 - 06/18/2022 Provider: ANGEL MACAIRO MD Diagnosis: Polycystic ovari an syndrome 2 BID Last Documented On 3 4:12PM By ANGEL MACARIO MD ; [facility] CeleXA 20 MG Oral Tablet 12/10/2021 - 01/12/2023 Provider: ANGEL MACARIO MD Diagnosis: Anxiety disorder , unspecified 1 1/2 tab PO qd. Last Documented On 3 11:47AM By ANGEL MACARIO MD ; [facility] CeleXA 20 MG Oral Tablet 08/27/2021 - 12/10/2021 Provider: ANGEL MACARIO MD Diagnosis: Anxiety disorder , unspecified 1 1/2 tab PO qd. Last Documented On 2 1:36PM By ANGEL MACARIO MD ; [facility] metFORMIN HCl 500 MG Oral Tablet 08/27/2021 - 12/10/2021 Provider: ANGEL MACARIO MD Diagnosis: Polycystic ovari an syndrome 2 BID Last Documented On 2 1:36PM By ANGEL MACARIO MD ; [facility] CeleXA 20 MG Oral Tablet 07/18/2021 - 08/27/2021 Provider: JOHN FOSTER PA-C Diagnosis: Anxiety disorder , unspecified 1 1/2 tab PO qd. This is an increase. Last Documented On 2 2:56PM By ANGEL MACARIO MD ; [facility] Lasix 40 MG Oral Tablet 06/24/2021 - 04/24/2021 Provider: ANGEL WIGGINS MD Diagnosis: Edema, unspecifi ed 1 daily today and tomorrow a nd then as needed Last Documented On 08/27/2021 2:45PM By Carolyn ASHBY ; [facility] metFORMIN HCl 500 MG Oral Tablet 03/20/2021 - 08/27/2021 Provider: ANGEL MACARIO MD Diagnosis: Polycystic ovari an syndrome 2 BID Last Documented On 2:56PM By ANGEL MACARIO MD ; [facility] Citalopram Hydrobromide 20 M G Oral Tablet 03/20/2021 - 04/24/2021 Provider: ANGEL WIGGINS MD Diagnosis: TAKE 1 TABLET BY MOUTH EVERY DAY Last Documented On 08/27/2021 2:45PM By Carolyn ASHBY ; [facility] metFORMIN HCl 500 MG Oral Tablet 03/14/2021 - 02/26/2021 Provider: ANGEL MACARIO MD Diagnosis: Polycystic ovari an syndrome 2 BID Last Documented On 03/20/2021 5:33PM By ISHMAEL ASHBY ; [facility] Citalopram Hydrobromide 20 M G Oral Tablet 02/26/2021 - 02/26/2021 Provider: ANGEL WIGGINS MD Diagnosis: TAKE 1 TABLET BY MOUTH EVERY DAY Last Documented On 03/20/2021 5:33PM By ISHMAEL ASHBY ; [facility] metFORMIN HCl 500 MG Oral Tablet 02/26/2021 - 03/14/2021 Provider: ANGEL MACARIO MD Diagnosis: Polycystic ovari an syndrome 2 BID Last Documented On 03/14/2021 4:00PM By Carolyn ASBHY ; [facility] metFORMIN HCl 500 MG Oral Tablet 11/23/2020 - 02/26/2021 Provider: ANGEL MACARIO MD Diagnosis: Polycystic ovari an syndrome as directed one at HS x 7 da ys then BID x 7 days continue to increase to 2 BID Last Documented On 4:23PM By ANGEL MACARIO MD ; [facility] Citalopram Hydrobromide 20 M G Oral Tablet 03/07/2020 - 02/26/2021 Provider: JOHN FOSTER PA-C Diagnosis: TAKE 1 TABLET BY MOUTH EVERY DAY Last Documented On 1 4:23PM By ANGEL MACARIO MD ; [facility] Loestrin /20 (21) 1-20MG-MC G Oral Tablet 11/09/2018 - 03/07/2020 Provider: ANGEL WIGGINS MD Diagnosis: TAKE 1 TABLET BY MOUTH DAILY Last Documented On 0 2:18PM By JOHN FOSTER PA-C ; [facility] Citalopram Hydrobromide 20MG Oral Tablet 11/09/2018 - 03/07/2020 Provider: ANGEL WIGGINS MD Diagnosis: TAKE 1 TABLET BY MOUTH EVERY DAY Last Documented On 0 2:31PM By JOHN FOSTER PA-C ; [facility] Loestrin /20 (21) 1-20MG-MC G Oral Tablet 10/23/2017 - 11/09/2018 Provider: ANGEL WIGGINS MD Diagnosis: TAKE 1 TABLET BY MOUTH DAILY Last Documented On 11/09/2018 2:15PM By SONIA ASHBY ; [facility] Citalopram Hydrobromide 20MG Oral Tablet 10/23/2017 - 11/09/2018 Provider: ANGEL WIGGINS MD Diagnosis: TAKE 1 TABLET BY MOUTH EVERY DAY Last Documented On 11/09/2018 2:15PM By SONIA ASHBY ; [facility] Loestrin /20 (21) 1-20MG-MC G Oral Tablet 09/14/2017 - 10/23/2017 Provider: ANGEL WIGGINS MD Diagnosis: TAKE 1 TABLET BY MOUTH DAILY Last Documented On 10/23/2017 3:09PM By KELIN MERLOS CMA ; [facility] Loestrin 1/20 (21) 1-20MG-MCG Oral Tablet 09/30/2016 - 09/14/2017 Provider: ANGEL MACARIO MD Diagnosis: Encntr for gener al adult medical exam w/o abnormal findings One tablet daily Last Documented On 8 9:56AM By JOHN FOSTER PA-C ; [facility] Citalopram Hydrobromide 20MG Oral Tablet 09/30/2016 - 10/23/2017 Provider: ANGEL WIGGINS MD Diagnosis: TAKE 1 TABLET BY MOUTH EVERY DAY Last Documented On 10/23/2017 3:17PM By KELIN MERLOS CMA ; [facility] Sprintec 28 0.25-35MG-MCG Oral Tablet 07/01/2016 - 11/09/2018 Provider: ANGEL MACARIO MD Diagnosis: Encntr for gener al adult medical exam w/o abnormal findings 1 daily Last Documented On 11/09/2018 1:43PM By BIENVENIDO ASHBY ; [facility] Citalopram Hydrobromide 20MG Oral Tablet 07/01/2016 - 09/30/2016 Provider: ANGEL WIGGINS MD Diagnosis: TAKE 1 TABLET BY MOUTH EVERY DAY Last Documented On 7 2:00PM By ANGEL MACARIO MD ; [facility] Citalopram Hydrobromide 20MG Oral Tablet 06/03/2016 - 07/01/2016 Provider: ANGEL WIGGINS MD Diagnosis: TAKE 1 TABLET BY MOUTH EVERY DAY; keep appt Last Documented On 7 11:33AM By ANGEL MACARIO MD ; [facility] Sprintec 28 0.25-35 MG-MCG Tablet 03/26/2015 - 07/01/2016 Provider: ANGEL MACARIO MD Diagnosis: 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 Lo Loestrin Fe 1 MG-10 MCG / 10 MCG Tablet 02/13/2015 - 07/01/2016 Provider: ANGEL WIGGINS MD Diagnosis: as directed TAKE 1 TABLET BY MOUTH DAILY AT THE SAME TIME EACH DAY Last Documented On 07/01/2016 10:54AM By BIENVENIDO ASHBY ; [facility] Lo Loestrin Fe 1 MG-10 MCG / 10 MCG OR TABS 03/24/2014 - 02/13/2015 Provider: ANGEL MACARIO MD Diagnosis: Excessive Menstr uation TAKE 1 TABLET BY MOUTH DAILY AT THE SAME TIME EACH DAY Last Documented On 5 8:16PM By ANGEL MACARIO MD ; [facility] Citalopram Hydrobromide 20 MG OR TABS 03/24/2014 - 04/2014 Provider: Diagnosis: Last Documented On 5 11:23AM By KRISTEN ASHBY ; [facility] Citalopram Hydrobromide 20 M G OR TABS 03/24/2014 - 10/21/2020 Provider: ANGEL WIGGINS MD Diagnosis: Last Documented On 11/23/2020 3:36PM By Carolyn ASHBY ; [facility] Lo Loestrin Fe 1 MG-10 MCG / 10 MCG OR TABS 02/20/2014 - 03/24/2014 Provider: ANGEL MACARIO MD Diagnosis: Excessive Menstr uation TAKE 1 TABLET BY MOUTH DAILY AT THE SAME TIME EACH DAY Last Documented On 5 11:23AM By KRISTEN ASHBY ; [facility] Zithromax Z-Hans 250 MG OR TABS 06/07/2013 - 10/21/2020 Provider: JOHN FOSTER PA-C Diagnosis: ACUTE URI NOS Take as directed. Last Documented On 11/23/2020 3:36PM By Carolyn ASHBY ; [facility] ProAir HFA 108 (90 Base) MCG/ACT IN AERS 06/07/2013 - 10/21/2020 Provider: JOHN FOSTER PA-C Diagnosis: ACUTE URI NOS 2 puffs q 4-6 hrs PRN Last Documented On 11/23/2020 3:36PM By Carolyn Hand ISMA ; [facility] Lo Loestrin Fe 1 MG-10 MCG / 10 MCG OR TABS 04/13/2013 - 02/20/2014 Provider: ANGEL MACARIO MD Diagnosis: Excessive Menstr uation Take one daily at the same t seth each day. Last Documented On 4 6:44PM By ANGEL MACARIO MD ; [facility] Amoxicillin 250 MG OR CAPS 04/05/2013 - 06/07/2013 Provider: JOHN FOSTER PA-C Diagnosis: ACUTE PHARYNGITI S Take 3 capsules once daily x 10 days Last Documented On 06/07/2013 8:25AM By FARZANA TAVERA MA ; [facility] Citalopram Hydrobromide 20 MG OR TABS 03/22/2013 - 03/26/2015 Provider: ANGEL WIGGINS MD Diagnosis: DERMATITIS NOS Last Documented On 6 11:32AM By ANGEL MACARIO MD ; [facility] Lo Loestrin Fe 1 MG-10 MCG / 10 MCG OR TABS 03/22/2013 - 04/13/2013 Provider: ANGEL MACARIO MD Diagnosis: Excessive Menstr uation Take one daily at the same t seth each day. Last Documented On 4 5:55PM By ANGEL MACARIO MD ; [facility] Lo Loestrin Fe 1 MG-10 MCG / 10 MCG OR TABS 02/24/2013 - 03/22/2013 Provider: ANGEL MACARIO MD Diagnosis: Excessive Menstr uation Take one daily at the same t seth each day. Last Documented On 3 9:06AM By KRISTEN ASHBY ; [facility] Citalopram Hydrobromide 20 MG OR TABS 03/09/2012 - 03/22/2013 Provider: ANGEL WIGGINS MD Diagnosis: DERMATITIS NOS Last Documented On 3 9:06AM By KRISTEN ASHBY ; [facility] Lo Loestrin Fe 1 MG-10 MCG / 10 MCG OR TABS 03/09/2012 - 02/24/2013 Provider: ANGEL MACARIO MD Diagnosis: Excessive Menstr uation Take one daily at the same t seth each day. Last Documented On 02/24/2013 1:33PM By Marissa ASHBY ; [facility] Citalopram Hydrobromide 20 MG OR TABS 01/09/2012 - 03/09/2012 Provider: ANGEL WIGGINS MD Diagnosis: DERMATITIS NOS Last Documented On 2 3:33PM By ANGEL MACARIO MD ; [facility] Lexapro 10 MG OR TABS 01/07/2012 - 03/09/2012 Provider : JOHN FOSTER PA-C Diagnosis: ANXIETY STATE NO S Please use generic. Last Documented On 03/09/2012 2:50PM By Marissa ASHBY ; [facility] Lo Loestrin Fe 1 MG-10 MCG / 10 MCG OR TABS 01/05/2012 - 03/09/2012 Provider: JOHN FOSTER PA-C Diagnosis: Excessive Menstr uation Take one daily at the same time each day. Last Documented On 2 3:33PM By ANGEL MACARIO MD ; [facility] Lexapro 10 MG OR TABS 01/05/2012 - 01/07/2012 Provider : JOHN FOSTER PA-C Diagnosis: ANXIETY STATE NO S Last Documented On 2 11:57AM By JOHN FOSTER PA-C ; [facility] Citalopram Hydrobromide 20 MG OR TABS 10/07/2011 - 01/09/2012 Provider: ANGEL WIGGINS MD Diagnosis: DERMATITIS NOS Last Documented On 01/09/2012 2:57PM By FARZANA TAVERA MA ; [facility] Citalopram Hydrobromide 20 MG OR TABS 07/04/2011 - 10/07/2011 Provider: ANGEL WIGGINS MD Diagnosis: DERMATITIS NOS Last Documented On 10/07/2011 1:46PM By FARZANA TAVERA MA ; [facility] Amoxicillin 250 MG OR CAPS 08/28/2010 - 02/22/2013 Provider: ANGEL MACARIO MD Diagnosis: ACUTE PHARYNGITI S Last Documented On 02/22/2013 2:20PM By FARZANA TAVERA MA ; [facility] Citalopram Hydrobromide 20 MG OR TABS 05/28/2010 - 07/04/2011 Provider: ANGEL WIGGINS MD Diagnosis: DERMATITIS NOS Last Documented On 2 10:53PM By ANGEL MACARIO MD ; [facility] Clotrimazole-Betamethasone 1 -0.05% EX CREA 05/28/2010 - 01/07/2012 Provider: ANGEL MACARIO MD Diagnosis: DERMATITIS NOS Last Documented On 2 11:54AM By FARZANA TAVERA MA ; [facility] Lexapro 10 MG OR TABS 02/28/2010 - 08/28/2010 Provider : ANGEL MACARIO MD Diagnosis: Last Documented On 1 3:14PM By ANGEL MACARIO MD ; [facility] Loestrin 24 Fe 1-20 MG-MCG O R TABS 12/04/2009 - 01/07/2012 Provider: ANGEL WIGGINS MD Diagnosis: NEEDS APPT BEFORE ANY ADDITIONAL RFS Last Documented On 2 11:54AM By FARZANA TAVERA MA ; [facility] Lexapro 10 MG OR TABS 12/03/2009 - 02/28/2010 Provider : ANGEL MACARIO MD Diagnosis: Last Documented On 02/28/2010 5:05PM By Marissa ASHBY ; [facility] Loestrin 24 Fe 1-20 MG-MCG O R TABS 09/26/2009 - 12/04/2009 Provider: ANGEL WIGGINS MD Diagnosis: Last Documented On 12/04/2009 9:00AM By Marissa ASHBY ; [facility] Lexapro 10 MG OR TABS 07/18/2009 - 01/07/2012 Provider : ANGEL MYLES M.D. Diagnosis: Last Documented On 2 11:54AM By FARZANA TAVERA MA ; [facility] Loestrin 24 Fe 1-20 MG-MCG O R TABS 07/18/2009 - 01/05/2012 Provider: ANGEL Stein Diagnosis: Last Documented On 2 4:03PM By JOHN FOSTER PA-C ; [facility] Nasacort AQ 55 MCG/ACT NA AERS 07/18/2009 - 01/07/2012 Provider: MAN Alfredo Diagnosis: DYSFUNCT EUSTACH JORGE TUBE Last Documented On 2 11:54AM By FARZANA TAVERA MA ; [facility] Loestrin 24 Fe 1-20 MG-MCG OR TABS 06/08/2009 - 01/07/2012 Provider: ANGEL WIGGINS MD Diagnosis: DYSMENORRHEA Last Documented On 2 11:54AM By FARZANA TAVERA MA ; [facility] Lexapro 10 MG OR TABS 06/08/2009 - 01/05/2012 Provider : ANGEL MACARIO MD Diagnosis: ANXIETY STATE NO S Last Documented On 2 4:12PM By JOHN FOSTER PA-C ; [facility] Lexapro 10 MG OR TABS 06/04/2009 - 06/08/2009 Provider : ANGEL MACARIO MD Diagnosis: ANXIETY STATE NO S Last Documented On 06/08/2009 9:30AM By Marissa ASHBY ; [facility] Loestrin 24 Fe 1-20 MG-MCG OR TABS 06/04/2009 - 06/08/2009 Provider: ANGEL WIGGINS MD Diagnosis: DYSMENORRHEA 3 samples given Last Documented On 06/08/2009 9:29AM By Marissa ASHBY ; [facility] Lexapro 10 MG OR TABS 04/16/2009 - 06/04/2009 Provider : ANGEL MACARIO MD Diagnosis: ANXIETY STATE NO S Last Documented On 0 6:51PM By ANGEL MACARIO MD ; [facility] Lexapro 10 MG OR TABS 03/14/2009 - 04/16/2009 Provider : ANGEL MACARIO MD Diagnosis: ANXIETY STATE NO S Last Documented On 0 9:47PM By ANGEL MACARIO MD ; [facility] Lexapro 10 MG OR TABS 02/24/2009 - 03/14/2009 Provider : ANGEL MACARIO MD Diagnosis: ANXIETY STATE NO S Last Documented On 9 11:44AM By ANGEL MACARIO MD ; [facility] Lexapro 10 MG OR TABS 01/23/2009 - 02/20/2009 Provider : ANGEL MACARIO MD Diagnosis: ANXIETY STATE NO S Last Documented On 9 11:52PM By ANGEL MACARIO MD ; [facility] Loestrin 24 Fe 1-20 MG-MCG OR TABS 01/23/2009 - 06/04/2009 Provider: ANGEL WIGGINS MD Diagnosis: DYSMENORRHEA 3 samples given Last Documented On 0 6:55PM By ANGEL MACARIO MD ; [facility] Medications Administered Includes: Administered Medications in patient's chart No Administered Medications Recorded Results Includes: Results from 07/05/2023 through 07/04/2024 No Results Recorded For Specified Dates History of Present Illness History of Present Illness not supported for this document type No History of Present Illness Recorded Social History Description Last Updated Single works at [employer] in the dept (2-04-14) ~Now living in [place] 06/18/2022 Last Documented On 3 10:20PM ; [facility] Tobacco non-user 06/18/2022 Last Documented On 3 10:20PM ; [facility] Not sexually active 12/10/2021 Last Documented On 2 1:41PM ; [facility] control method not specified 03/07 Last Documented On 0 3:36PM ; [facility] No consumption of alcohol 07/14/2008 Last Documented On 9 12:56PM ; [facility] Not using drugs 07/14/2008 Last Documented On 9 12:56PM ; [facility] Smoking Status Unknown Medical History Includes: Medical History in patient's chart Description Last Updated LMP: 04/23/2022 06/18/2022 Last Documented On 3 10:20PM ; [facility] Not using contraception 12/10/2021 Last Documented On 2 1:41PM ; [facility] Aborta 0 01/05/2012 Last Documented On 2 4:21PM ; [facility] 0 01/05/2012 Last Documented On 2 4:21PM ; [facility] Para 0 01/05/2012 Last Documented On 2 4:21PM ; [facility] Reviewed PMH for frequent illnesses 10/2010 Last Documented On 1 3:41PM ; [facility] Family History Includes: Family History in patient's chart Description Last Updated Paternal history of father hyperlipidemi a 10/23/2017 Last Documented On 8 11:21PM ; [facility] Maternal history of family h istory of heart disease Maternal side of family ~anxiety 07/01/2016 Last Documented On 7 11:38AM ; [facility] Family history of heart disease Maternal side of family 01/05/2012 Last Documented On 2 4:21PM ; [facility] Review of Systems Review of Systems not [...] Patient Last Documented On 3 3:08PM ; [facility] COVID-19 Moderna 2 06/12/2020 Right Arm Complete ( Reported) Patient Last Documented On 3 3:08PM ; [facility] COVID-19 Moderna 3 03/28/2021 Right Deltoid Comple te (Reported) Patient Last Documented On 3 3:08PM ; [facility] DTP 1 1990 Complete (Reported) P atient Last Documented On 3 3:08PM ; [facility] DTP 2 1990 Complete (Reported) P atient Last Documented On 3 3:08PM ; [facility] DTP 3 1990 Complete (Reported) P atient Last Documented On 3 3:08PM ; [facility] DTP 4 08/26/1990 Complete (Reported) P atient Last Documented On 3 3:08PM ; [facility] DTP 5 06/05/1994 Complete (Reported) P atient Last Documented On 3 3:08PM ; [facility] Hep B (Engerix-B/Recombivax HB) Ped/Adult 3 dose 1 01/09/1999 Complete (Reported) Pa tient Last Documented On 3 3:08PM ; [facility] Hep B (Engerix-B/Recombivax HB) Ped/Adult 3 dose 2 02/28/1999 Complete (Reported) Pa tient Last Documented On 3 3:08PM ; [facility] Hep B (Engerix-B/Recombivax HB) Ped/Adult 3 dose 3 07/04/1999 Complete (Reported) Pa tient Last Documented On 3 3:08PM ; [facility] Hib 1 05/27/1990 Complete (Reported) P atient Last Documented On 3 3:08PM ; [facility] HPV, (quadrivalent) Gardasil 1 10/28/2006 Complete (Reported) Patient Last Documented On 3 3:08PM ; [facility] HPV, (quadrivalent) Gardasil 2 12/31/2006 Complete (Reported) Patient Last Documented On 3 3:08PM ; [facility] HPV, (quadrivalent) Gardasil 3 06/24/2007 Complete (Reported) Patient Last Documented On 3 3:08PM ; [facility] Influenza (Quadrivalent) , 0.25ml (MDV) 6-35mo. 1 02/09/2019 Right Arm Complete (Reported ) Patient Last Documented On 3 3:08PM ; [facility] Influenza (Quadrivalent)36 m o.& older PF 0.5ml (SD) 1 11/10/2013 Complete (Reported) Patie nt Last Documented On 4 4:02PM ; [facility] Influenza (Quadrivalent)36 m o.& older PF 0.5ml (SD) 2 01/17/2015 Complete (Reported) Patie nt Last Documented On 5 8:24AM ; [facility] Influenza (Trivalent) split virus-PF (ID) 1 11/10/2013 Right Arm Complete (Reported) Patie nt Last Documented On 3 3:08PM ; [facility] Influenza-( TRIVALENT PF) 3 yr & Older 1 01/16/2015 Left Arm Complete (Reported) Patient Last Documented On 3 3:08PM ; [facility] Influenza-( TRIVALENT PF) 3 yr & Older 2 12/06/2015 Left Arm Complete (Reported) Patient Last Documented On 3 3:08PM ; [facility] MMR 1 05/27/1990 Complete (Reported) P atient Last Documented On 3 3:08PM ; [facility] MMR 2 06/05/1994 Complete (Reported) P atient Last Documented On 3 3:08PM ; [facility] OPV 1 1990 Complete (Reported) P atient Last Documented On 3 3:08PM ; [facility] OPV 2 1990 Complete (Reported) P atient Last Documented On 3 3:08PM ; [facility] OPV 3 1989 Complete (Reported) P atient Last Documented On 3 3:08PM ; [facility] OPV 4 08/26/1990 Complete (Reported) P atient Last Documented On 3 3:08PM ; [facility] OPV 5 06/05/1994 Complete (Reported) P atient Last Documented On 3 3:08PM ; [facility] Td (Decavac) 1 10/26/2003 Complete (Report ed) Patient Last Documented On 3 3:08PM ; [facility] Allergies Includes: Active, inactive, and resolved Allergies Substance Type Reaction Onset Date Resolved Date Statu s Keflex Allergy 07/14/2008 Active Last Documented On 3 11:24AM ; [facility] Bactrim Allergy 07/14/2008 Active Last Documented On 3 11:24AM ; [facility] Insurance Includes: Active Insurance Policies Plan Name Member ID Group # Subscriber Relationship Effect sharla Dates 1 - [facility] [id number] JASON MARTE Self Clinical Notes Includes: Signed Clinical Notes starting from 04/11/2022 No Clinical Notes Recorded
--- OUTSIDE RECORDS SUMMARY | 2024-07-04 17:17 | XMS_ITS | Clinical Summary ---
Author Organization [facility] Address [address] [place] [address] Phone Care Team Providers Care Mobile Marketing Specialist Name Role Phone Unavailable Unavailable Unavailable Reason for Visit and Chief Complaint The Chief Complaint is: med check, doing good on the Metformin and Celexa Problems Includes: Problems addressed during this encounter and other active Problems Current Visit Onset Date Resolved Date Provider Ghazal Adame Anxiety Disorder Nos 05/28/2010 ANGEL MACARIO MD Active Last Documented On 01/12/2023 11:32AM ; [facility] Note: Unchanged Plan of Treatment She is [...] - Last Documented On 08/27/2021 3:04PM ; [facility] Assessments Includes: Assessments from this encounter Findings - [E28.2 - Polycystic ovarian syndrome] Polycystic Ovarian Syndrome (PCOS) - Last Documented On 08/27/2021 3:04PM ; [facility] - [F41.9 - Anxiety disorder, unspecified] Anxiety disorder NOS - Last Documented On 08/27/2021 3:04PM ; [facility] Medical Equipment - Implanted Devices Includes: Current Devices No Medical Equipment Recorded Medications Includes: Medications discussed during this encounter and other current Medications New / Renewed during this visit ANGEL MACARIO MD on 08/27/2021 CeleXA 20 MG Oral Tablet Provider: NOE MACARIO MD 90 day supply: 135 tablet, 1 refills Diagnosis: Anxiety disorder, unspecified 1 1/2 tab PO qd. Pharmacy: [facility] ([employer]) - [address] , [facility], [phone] - Last Documented On 2 1:36PM By ANGEL MACARIO MD ; [facility] metFORMIN HCl 500 MG Oral Tablet Provider: ANGEL Carrera 90 day supply: 360 tablet, 1 refills Diagnosis: Polycystic ovarian syndrome 2 BID Pharmacy: Marie [facility] ([facility]) - [address] , [place] [facility], [phone] - Last Documented On 2 1:36PM By ANGEL MACARIO MD ; [facility] Current Medications (continue as prescribed) CeleXA 20 MG Oral Tablet 01/12/2023 Provider: NOE MACARIO MD Diagnosis: Anxiety disorder , unspecified 1 1/2 tab PO qd. Last Documented On 3 11:54AM By ANGEL MACARIO MD ; [facility] Lisdexamfetamine Dimesylate 30 MG Oral Capsule 01/12/2023 Provider: ANGEL Carrera Diagnosis: One tablet daily Last Documented On 3 11:53AM By ANGEL MACARIO MD ; [facility] metFORMIN HCl 500 MG Oral Tablet 06/18/2022 Provider: ANGEL Carrera Diagnosis: Polycystic ovari an syndrome 2 BID Last Documented On 3 4:13PM By ANGEL MACARIO MD ; [facility] Medications Administered Includes: Administered Medications from this [...] 97 Last Documented: On 08/27/2021 2:47PM ; [facility] Results Includes: Results discussed during this encounter [...] History Description Last Updated 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) ~Now living in [place] 06/18/2022 Last Documented On 2 2:39PM ; [facility] Tobacco non-user 06/18/2022 Last Documented On 2 2:39PM ; [facility] Current nonsmoker 03/07/2020 Last Documented On 2 2:39PM ; [facility] Smoking Status Unknown Procedures and Surgical History Includes: Procedures from this encounter Procedures Code Diagnosis Performing Provider Service L ocation Service Date education and instructions Last Documented On 2 3:04PM ; [facility] explanation of plan : patien t/guardian states understanding of and agreement to treatment options and plan Last Documented On 2 3:04PM ; [facility] medication list reviewed Last Documented On 2 3:04PM ; [facility] use of tobacco assessment performed 1000F Last Documented On 2 2:39PM ; [facility] Reviewed & agreed to staff entries. Last Documented On 2 3:04PM ; [facility] Clinical summary provided to patient Last Documented On 2 3:04PM ; [facility] Medical History Includes: Medical History addressed during this encounter Description Last Updated LMP: 07/04/2021 06/18/2022 Last Documented On 2 2:39PM ; [facility] Aborta 0 01/05/2012 Last Documented On 2 2:39PM ; [facility] 0 01/05/2012 Last Documented On 2 2:39PM ; [facility] Para 0 01/05/2012 Last Documented On 2 2:39PM ; [facility] Reviewed PMH for frequent illnesses 10/2010 Last Documented On 2 2:39PM ; [facility] Family History Includes: Family History addressed during this encounter Description Last Updated Paternal history of father hyperlipidemi a 10/23/2017 Last Documented On 2 2:39PM ; [facility] Maternal history of family h istory of heart disease Maternal side of family ~anxiety 07/01/2016 Last Documented On 2 2:39PM ; [facility] Review of Systems Includes: Review of [...] Active Last Documented On 3 11:24AM ; [facility] Bactrim Allergy 07/14/2008 Active Last Documented On 3 11:24AM ; [facility] Encounters Encounter Provider Location Date Check-In Time Check-Out Time Diagnosis CHECK UP ANGEL MACARIO MD [facility] ALICIA PHILLIPS 08/28/19 22 2:33PM 3:03PM Anxiety Disorder Nos,Polycysti c Ovarian Syndrome (Pcos) Insurance Includes: Active Insurance Policies Plan Name Member ID Group # Subscriber Relationship Effect sharla Dates 1 - [facility] [id number] BRIELLE MARTE Self Clinical Notes Includes: Clinical Notes from this encounter No Clinical Notes Recorded
--- OUTSIDE RECORDS SUMMARY | 2024-07-04 17:17 | XMS_ITS ---
Care Plan - [facility] Created on: July 04, 2024 JASON MARTE : 1990 Sex: Female Author Organization [facility] Address [address] [place] [address] Phone Care Team Providers Care Safety Supervisor Name Role Phone Unavailable Unavailable Unavailable
--- OUTSIDE RECORDS SUMMARY | 2024-07-04 17:17 | XMS_ITS | Clinical Summary ---
Author Organization [facility] Address [address] [place] [address] Phone Care Team Providers Care Internet Consultant Name Role Phone Unavailable Unavailable Unavailable Reason [...] Active Last Documented On 01/12/2023 11:32AM ; [facility] Note: Unchanged Plan of Treatment [...] - Last Documented On 06/19/2022 10:20PM ; [facility] Instructions to patient Intervention and counseling on cessation of tobacco use Last Documented On 3 3:09PM ; [facility] Assessments Includes: Assessments from this encounter Findings - [N94.6 - Dysmenorrhea, unspecified] Dysmenorrhea - Last Documented On 06/19/2022 10:20PM ; [facility] Instructions Includes: Instructions from this encounter Instructions to patient Intervention and counseling on cessation of tobacco use Last Documented On 3 3:09PM ; [facility] Medical Equipment - Implanted [...] (Jessica) - 2 JESSICA , YUNG [place], [phone] - Last Documented On 3 4:13PM By ANGEL MACARIO MD ; [facility] Current Medications (continue as prescribed) CeleXA 20 MG Oral Tablet 01/12/2023 Provider: NOE MACARIO MD Diagnosis: Anxiety disorder , unspecified 1 1/2 tab PO qd. Last Documented On 3 11:54AM By ANGEL MACARIO MD ; [facility] Lisdexamfetamine Dimesylate 30 MG Oral Capsule 01/12/2023 Provider: ANGEL Carrera Diagnosis: One tablet daily Last Documented On 3 11:53AM By ANGEL MACARIO MD ; [facility] Medications Administered Includes: Administered [...] 97 Last Documented: On 06/18/2022 3:10PM ; [facility] Results Includes: Results discussed [...] History Description Last Updated Single works at [employer] in the dept (04-23-22) ~Now living in [place] 06/18/2022 Last Documented On 3 10:20PM ; [facility] Tobacco non-user 06/18/2022 Last Documented On 3 10:20PM ; [facility] Smoking Status Unknown Procedures and Surgical History Includes: Procedures from this encounter Procedures Code Diagnosis Performing Provider Service L ocation Service Date education and instructions Last Documented On 3 9:48PM ; [facility] intervention 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 Last Documented On 3 3:09PM ; [facility] explanation of plan : patien t/guardian states understanding of and agreement to treatment options and plan Last Documented On 3 9:48PM ; [facility] medication list reviewed Last Documented On 3 9:48PM ; [facility] use of tobacco assessment performed 1000F Last Documented On 3 3:09PM ; [facility] standardized depression screening: negative for symptoms 3351F Last Documented On 3 3:09PM ; [facility] assessment of suicide risk performed Last Documented On 3 3:09PM ; [facility] screening for adult depression: impressi on and score 0 Last Documented On 3 3:09PM ; [facility] Reviewed & agreed to staff entries. Last Documented On 3 9:48PM ; [facility] Clinical summary provided to patient Last Documented On 3 9:48PM ; [facility] Medical History Includes: Medical History addressed during this encounter Description Last Updated LMP: 04/23/2022 06/18/2022 Last Documented On 3 10:20PM ; [facility] Aborta 0 01/05/2012 Last Documented On 3 3:08PM ; [facility] 0 01/05/2012 Last Documented On 3 3:08PM ; [facility] Para 0 01/05/2012 Last Documented On 3 3:08PM ; [facility] Reviewed PMH for frequent illnesses 10/2010 Last Documented On 3 3:08PM ; [facility] Family History Includes: Family History addressed during this encounter Description Last Updated Paternal history of father hyperlipidemi a 10/23/2017 Last Documented On 3 3:08PM ; [facility] Maternal history of family h istory of heart disease Maternal side of family ~anxiety 07/01/2016 Last Documented On 3 3:08PM ; [facility] Family history of heart disease Maternal side of family 01/05/2012 Last Documented On 3 3:08PM ; [facility] Review of Systems Includes: Review of [...] Patient Last Documented On 3 3:08PM ; [facility] COVID-19 Moderna 2 06/12/2020 Right Arm Complete ( Reported) Patient Last Documented On 3 3:08PM ; [facility] COVID-19 Moderna 3 03/28/2021 Right Deltoid Comple te (Reported) Patient Last Documented On 3 3:08PM ; [facility] DTP 1 1989 Complete (Reported) P atient Last Documented On 3 3:08PM ; [facility] DTP 2 1989 Complete (Reported) P atient Last Documented On 3 3:08PM ; [facility] DTP 3 1989 Complete (Reported) P atient Last Documented On 3 3:08PM ; [facility] DTP 4 08/26/1990 Complete (Reported) P atient Last Documented On 3 3:08PM ; [facility] DTP 5 06/05/1994 Complete (Reported) P atient Last Documented On 3 3:08PM ; [facility] Hep B (Engerix-B/Recombivax HB) Ped/Adult 3 dose 1 01/09/1999 Complete (Reported) Pa tient Last Documented On 3 3:08PM ; [facility] Hep B (Engerix-B/Recombivax HB) Ped/Adult 3 dose 2 02/28/1999 Complete (Reported) Pa tient Last Documented On 3 3:08PM ; [facility] Hep B (Engerix-B/Recombivax HB) Ped/Adult 3 dose 3 07/04/1999 Complete (Reported) Pa tient Last Documented On 3 3:08PM ; [facility] Hib 1 05/27/1990 Complete (Reported) P atient Last Documented On 3 3:08PM ; [facility] HPV, (quadrivalent) Gardasil 1 10/28/2006 Complete (Reported) Patient Last Documented On 3 3:08PM ; [facility] HPV, (quadrivalent) Gardasil 2 12/31/2006 Complete (Reported) Patient Last Documented On 3 3:08PM ; [facility] HPV, (quadrivalent) Gardasil 3 06/24/2007 Complete (Reported) Patient Last Documented On 3 3:08PM ; [facility] Influenza (Quadrivalent) , 0.25ml (MDV) 6-35mo. 1 02/09/2019 Right Arm Complete (Reported ) Patient Last Documented On 3 3:08PM ; [facility] Influenza (Trivalent) split virus-PF (ID) 1 11/10/2013 Right Arm Complete (Reported) Patie nt Last Documented On 3 3:08PM ; [facility] Influenza-( TRIVALENT PF) 3 yr & Older 1 01/16/2015 Left Arm Complete (Reported) Patient Last Documented On 3 3:08PM ; [facility] Influenza-( TRIVALENT PF) 3 yr & Older 2 12/06/2015 Left Arm Complete (Reported) Patient Last Documented On 3 3:08PM ; [facility] MMR 1 05/27/1990 Complete (Reported) P atient Last Documented On 3 3:08PM ; [facility] MMR 2 06/05/1994 Complete (Reported) P atient Last Documented On 3 3:08PM ; [facility] OPV 1 1989 Complete (Reported) P atient Last Documented On 3 3:08PM ; [facility] OPV 2 1989 Complete (Reported) P atient Last Documented On 3 3:08PM ; [facility] OPV 3 1989 Complete (Reported) P atient Last Documented On 3 3:08PM ; [facility] OPV 4 08/26/1990 Complete (Reported) P atient Last Documented On 3 3:08PM ; [facility] OPV 5 06/05/1994 Complete (Reported) P atient Last Documented On 3 3:08PM ; [facility] Td (Decavac) 1 10/26/2003 Complete (Report ed) Patient Last Documented On 3 3:08PM ; [facility] Allergies Includes: Active Allergies Substance Type Reaction Onset Date Resolved Date Statu s Keflex Allergy 07/14/2008 Active Last Documented On 3 11:24AM ; [facility] Bactrim Allergy 07/14/2008 Active Last Documented On 3 11:24AM ; [facility] Encounters Encounter Provider Location Date Check-In Time Check-Out Time Diagnosis CHECK UP ANGEL MACARIO MD [facility] [place] 06/19/19 23 2:53PM 4:11PM Dysmenorrhea Insurance Includes: Active Insurance Policies Plan Name Member ID Group # Subscriber Relationship Effect sharla Dates 1 - [facility] [id number] JASON MARTE Self Clinical Notes Includes: Clinical Notes from this encounter * Progress note Date Encounter Last Documented by 06/18/2022 CHECK UP Last documented on 06/19/2022; 10:20 PM, ANGEL MACARIO MD; [facility] Active Problems & Conditions [...] use: Tobacco non-user. Marital: Single works at [employer] in the dept (04-23-22) Now living in [place]. Allergies - Bactrim - Keflex Family History [...]
--- OUTSIDE RECORDS SUMMARY | 2024-07-04 17:17 | XMS_ITS | Encounter Summary ---
Author Organization [facility] Un[facility] Address [address] [place] [address] Care Team Providers Care Calendar Control Clerk Blood Bank Name Role Phone Fina Bowles MD Primary Care Provider [phone] Encounter Details Date Type Department Care Team ([facility] Contact Info) Description 06/29/2024 Orders Only [facility] Oncology and Hematology [facility] [address] [place] [address] Suraj Denise MD [address] [place] [phone] Social History Tobacco Use Types Packs/Day Years Used Date Smoking Tobacco: Never Alcohol Use Standard Drinks/Week Comments Yes 0 (1 standard drink = 0.6 oz pur e alcohol) Ocassionally Comments Unknown Sex and Gender Information Value Date Recorded Sex Assigned at Female 02/15/2024 5:10 PM PRODUCT TEST ENGINEER Legal Sex Female 11:44 AM CDT Gender Identity Female 02/15/2024 5:10 PM PRODUCT TEST ENGINEER Sexual Orientation Not on file documented as of this encounter Plan of Treatment Upcoming Encounters Date Type Department Care Team (Late Contact Info) Description 11/03/2024 3:45 PM CDT Office Visit [facility] Oncology and Hematology - [place] [address] [place] [address] Suraj Denise MD [address] [place] [address] documented as of this encounter Procedures Procedure Name Priority Date/Time Associated Diagnosis Comments IRON PANEL Routine 06/28/2024 8:14 AM CDT documented in this encounter Results * IRON PANEL (06/28/2024 8:14 AM CDT) Blood Suraj Denise MD CHEMISTRY ORDERABLES Final Resu lt documented in this encounter Visit Diagnoses Not on filedocumented in this encounter Care Teams Calendar Control Clerk Blood Bank Relationship Specialty Start Date End Date Fina Bowles MD [address] [place] [phone] PCP - General Family Practice 03/10/24 documented as of this encounter
--- OUTSIDE RECORDS SUMMARY | 2024-07-04 17:17 | XMS_ITS | Clinical Summary ---
Author Organization [facility] Address [address] [place] [address] Phone Care Team Providers Care Insurance Claims Processor Name Role Phone Unavailable Unavailable Unavailable Reason [...] Active Last Documented On 01/12/2023 11:32AM ; [facility] Note: Unchanged Plan of Treatment Ordered a pelvic ultrasound. - Last Documented On 12/10/2021 1:41PM ; [facility] Assessments Includes: Assessments from this encounter Findings - [Z01.411 - Encounter for gynecological examination (general) (routine) with abnormal findings] Routine gynecological exam with cervical pap smear - Last Documented On 12/10/2021 1:41PM ; [facility] - [Z01.419 - Encounter for gynecological examination (general) (routine) without abnormal findings] Routine gynecological exam with cervical pap smear without abnormal findings - Last Documented On 12/10/2021 1:41PM ; [facility] - [N94.6 - Dysmenorrhea, unspecified] Dysmenorrhea - Last Documented On 12/10/2021 1:41PM ; [facility] Medical Equipment - Implanted Devices Includes: Current Devices No Medical Equipment Recorded Medications Includes: Medications discussed during this encounter and other current Medications New / Renewed during this visit ANGEL MACARIO MD on 12/10/2021 metFORMIN HCl 500 MG Oral Tablet Provider: ANGEL Carrera 90 day supply: 360 tablet, 3 refills Diagnosis: Polycystic ovarian syndrome 2 BID Pharmacy: Maire Acuñan Juni isisтатьяна ([employer]) - [address] , [facility], [id number] - Last Documented On 3 4:12PM By ANGEL MACARIO MD ; [facility] CeleXA 20 MG Oral Tablet Provider: NOE MACARIO MD 90 day supply: 135 tablet, 3 refills Diagnosis: Anxiety disorder, unspecified 1 1/2 tab PO qd. Pharmacy: Marie Taylor ([employer]) - [address] , [facility], [phone] - Last Documented On 3 11:47AM By ANGEL MACARIO MD ; [facility] Current Medications (continue as prescribed) CeleXA 20 MG Oral Tablet 01/12/2023 Provider: NOE MACARIO MD Diagnosis: Anxiety disorder , unspecified 1 1/2 tab PO qd. Last Documented On 3 11:54AM By ANGEL MACARIO MD ; [facility] Lisdexamfetamine Dimesylate 30 MG Oral Capsule 01/12/2023 Provider: ANGEL Carrera Diagnosis: One tablet daily Last Documented On 3 11:53AM By ANGEL MACARIO MD ; [facility] metFORMIN HCl 500 MG Oral Tablet 06/18/2022 Provider: ANGEL Carrera Diagnosis: Polycystic ovari an syndrome 2 BID Last Documented On 3 4:13PM By ANGEL MACARIO MD ; [facility] Medications Administered Includes: Administered [...] 98 Last Documented: On 12/10/2021 1:16PM ; [facility] Results Includes: Results discussed during [...] History Description Last Updated Single works at [employer] (Has a bachelors in Biology) ~Now living in [place] 06/18/2022 Last Documented On 2 1:05PM ; [facility] Tobacco non-user 06/18/2022 Last Documented On 2 1:05PM ; [facility] Not sexually active 12/10/2021 Last Documented On 2 1:41PM ; [facility] Current nonsmoker 03/07/2020 Last Documented On 2 1:05PM ; [facility] Smoking Status Unknown Procedures and Surgical History Includes: Procedures from this encounter Procedures Code Diagnosis Performing Provider Service L ocation Service Date education and instructions Last Documented On 2 1:34PM ; [facility] explanation of plan : patien t/guardian states understanding of and agreement to treatment options and plan Last Documented On 2 1:34PM ; [facility] medication list reviewed Last Documented On 2 1:34PM ; [facility] Reviewed & agreed to staff entries. Last Documented On 2 1:34PM ; [facility] Clinical summary provided to patient Last Documented On 2 1:34PM ; [facility] cervical Pap smear [id number] Last Documented On 2 1:18PM ; [facility] Medical History Includes: Medical History addressed during this encounter Description Last Updated LMP: 07/04/2021 06/18/2022 Last Documented On 2 1:05PM ; [facility] Not using contraception 12/10/2021 Last Documented On 2 1:41PM ; [facility] Aborta 0 01/05/2012 Last Documented On 2 1:05PM ; [facility] 0 01/05/2012 Last Documented On 2 1:05PM ; [facility] Para 0 01/05/2012 Last Documented On 2 1:05PM ; [facility] Reviewed PMH for frequent illnesses 10/2010 Last Documented On 2 1:05PM ; [facility] Family History Includes: Family History addressed during this encounter Description Last Updated Paternal history of father hyperlipidemi a 10/23/2017 Last Documented On 2 1:05PM ; [facility] Maternal history of family h istory of heart disease Maternal side of family ~anxiety 07/01/2016 Last Documented On 2 1:05PM ; [facility] Review of Systems Includes: Review of Systems [...] Active Last Documented On 3 11:24AM ; [facility] Bactrim Allergy 07/14/2008 Active Last Documented On 3 11:24AM ; [facility] Encounters Encounter Provider Location Date Check-In Time Check-Out Time Diagnosis WELL WOMAN - ESTABLISHED PT ANGEL MACARIO MD [facility] - ALICIA BLKIRSTIE 022 12:57PM 1:42PM Routine Gynecological Exam with Cervical Pap Smear,Dysmenorrh ea,Routine Gynecological Exam with Cervical Pap Smear Without Abnormal Findings Insurance Includes: Active Insurance Policies Plan Name Member ID Group # Subscriber Relationship Effect shalra Dates 1 - R [id number] BRIELLE LOPEZ Self Clinical Notes Includes: Clinical Notes from this encounter No Clinical Notes Recorded
--- OUTSIDE RECORDS SUMMARY | 2024-07-04 17:17 | XMS_ITS | Clinical Summary ---
Author Organization [facility] [address] Address [address] [place] [address] Care Team Providers Care Acquisitions Assistant Name Role Phone Elving-Fina Poole MD Primary [...] on file Legal Sex Female 4:15 PM DELIVERY AIDE Gender Identity Not on file Sexual Orientation Not on file Obstetrics History Last Filed Vital Signs Vital Sign Reading Time Taken Comments Blood Pressure 122/86 03/25/2021 10:28 AM DELIVERY AIDE Pulse 85 03/25/2021 10:28 AM DELIVERY AIDE Temperature 36.9 C (98.4 F) 03/25/2021 10:28 AM DELIVERY AIDE Respiratory Rate 16 03/25/2021 10:28 AM DELIVERY AIDE Oxygen Saturation 97% 03/25/2021 10:28 AM DELIVERY AIDE Inhaled Oxygen Concentration - - Weight 135.2 kg (298 lb) 03/25/2021 10:28 AM DELIVERY AIDE Height 162.6 cm (5' 4 ) 03/25/2021 10:28 AM DELIVERY AIDE Body Mass Index 51.15 03/25/2021 10:28 AM DELIVERY AIDE Plan of Treatment Not on file Insurance [facility] CHOICE PLUS Care Teams Acquisitions Assistant Relationship Specialty Start Date End Date Fina Jimenez MD [address] [place] [id number] PCP - General Family Medicine 03/25/21
--- OUTSIDE RECORDS SUMMARY | 2024-07-04 17:17 | XMS_ITS | Clinical Summary ---
Author Organization [facility] Address [address] [place] [address] Phone Care Team Providers Care Bumper Operator Name Role Phone Unavailable Unavailable Unavailable [...] Active Last Documented On 01/12/2023 11:32AM ; [facility] Note: Unchanged Plan of [...] - Last Documented On 01/15/2023 10:18PM ; [facility] Assessments Includes: Assessments from this encounter Findings - [Z00.00 - Encounter for general adult medical examination without abnormal findings] Routine history and physical - Last Documented On 01/15/2023 10:18PM ; [facility] - [N94.6 - Dysmenorrhea, unspecified] Dysmenorrhea - Last Documented On 01/15/2023 10:18PM ; [facility] - [F41.9 - Anxiety disorder, unspecified] Anxiety disorder NOS - Last Documented On 01/15/2023 10:18PM ; [facility] Medical Equipment - Implanted Devices Includes: Current Devices No Medical Equipment Recorded Medications Includes: Medications discussed during this encounter and other current Medications New / Renewed during this visit ANGEL MACARIO MD on 01/12/2023 CeleXA 20 MG Oral Tablet Provider: NOE MACARIO MD 90 day supply: 135 tablet, 3 refills Diagnosis: Anxiety disorder, unspecified 1 1/2 tab PO qd. Pharmacy: Marie Desai [employer]) - [address] [facility], [id number] - Last Documented On 3 11:54AM By ANGEL MACARIO MD ; [facility] Lisdexamfetamine Dimesylate 30 MG Oral Capsule Provider: ANGEL Carrera 30 day supply: 30 each, 0 refills Diagnosis: One tablet daily Pharmacy: Marie Desai [employer]) - [address] [facility], [phone] - Last Documented On 3 11:53AM By ANGEL MACARIO MD ; [facility] Current Medications (continue as prescribed) metFORMIN HCl 500 MG Oral Tablet 06/18/2022 Provider: ANGEL Carrera Diagnosis: Polycystic ovari an syndrome 2 BID Last Documented On 3 4:13PM By ANGEL MACARIO MD ; [facility] Medications Administered Includes: Administered Medications [...] Last Documented: On 01/12/2023 11:27A M ; [facility] Results Includes: Results discussed [...] History Description Last Updated Single works at [employer] [place] [employer] [place] (04-23-22) ~Now living in [place] 06/18/2022 Last Documented On 3 11:22AM ; [facility] Tobacco non-user 06/18/2022 Last Documented On 3 11:22AM ; [facility] Smoking Status Unknown Procedures and Surgical History Includes: Procedures from this encounter Procedures Code Diagnosis Performing Provider Service L ocation Service Date education and instructions Last Documented On 3 11:49AM ; [facility] explanation of plan : patien t/guardian states understanding of and agreement to treatment options and plan Last Documented On 3 11:49AM ; [facility] medication list reviewed Last Documented On 3 11:49AM ; [facility] use of tobacco assessment performed 1000F Last Documented On 3 11:25AM ; [facility] Reviewed & agreed to staff entries. Last Documented On 3 11:49AM ; [facility] Clinical summary provided to patient Last Documented On 3 11:49AM ; [facility] Medical History Includes: Medical History addressed during this encounter Description Last Updated LMP: 04/23/2022 06/18/2022 Last Documented On 3 11:22AM ; [facility] Aborta 0 01/05/2012 Last Documented On 3 11:22AM ; [facility] 0 01/05/2012 Last Documented On 3 11:22AM ; [facility] Para 0 01/05/2012 Last Documented On 3 11:22AM ; [facility] Reviewed PMH for frequent illnesses 10/2010 Last Documented On 3 11:22AM ; [facility] Family History Includes: Family History addressed during this encounter Description Last Updated Paternal history of father hyperlipidemi a 10/23/2017 Last Documented On 3 11:22AM ; [facility] Maternal history of family h istory of heart disease Maternal side of family ~anxiety 07/01/2016 Last Documented On 3 11:22AM ; [facility] Family history of heart disease Maternal side of family 01/05/2012 Last Documented On 3 11:22AM ; [facility] Review of Systems Includes: Review of [...] Active Last Documented On 3 11:24AM ; [facility] Bactrim Allergy 07/14/2008 Active Last Documented On 3 11:24AM ; [facility] Encounters Encounter Provider Location Date Check-In Time Check-Out Time Diagnosis WELL WOMAN - ESTABLISHED PT ANGEL MACARIO MD [facility] 01/13/20 10:55AM 11:58AM Anxiety Disorder Nos,Routine History and Physical,Dys menorrhea Insurance Includes: Active Insurance Policies Plan Name Member ID Group # Subscriber Relationship Effect sharla Dates 1 - R [id number] BRIELLE MARTE Self Clinical Notes Includes: Clinical Notes from this encounter * Progress note Date Encounter Last Documented by 01/12/2023 WELL WOMAN - ESTABLISHED PT Last documented on 01/15/2023; 10:18 PM, ANGEL MACARIO MD; [facility] Active Problems & Conditions [...] use: Tobacco non-user. Marital: Single works at [employer] in [place] (04-23-22) Now living in [place]. Allergies - Bactrim - Keflex Family History [...]
== END 2024-07-04 15:20 | disposition home or self-care (01) ==
PROVIDERS: PCP Family Medicine; Visit Provider Internal Medicine Hematology & Oncology
DX: D64.9 Anemia, unspecified (principal)
CPT/HCPCS: 36415; 85025

== ENCOUNTER 2024-11-01 10:33 | Outpatient (CLI) | payer OTHER, SELFPAY ==
[2024-11-01 11:14] LABS: Hematocrit 41.3 % (37.0-47.0); Hemoglobin 13.9 g/dL (12.0-15.0); Immature Granulocyte Percent A 0.1 % (0-0.5); Lymphocytes Absolute Auto 3.19 K/mm3 (0.9-3.2); Mean Corpuscular HGB Conc 33.7 g/dl (32-36); Mean Corpuscular Hemoglobin 32.6 pg (26-34); Mean Corpuscular Volume 96.7 fl (80-100); Nucleated Red Blood Cells Absolute Auto 0.000 K/mm3 (0.0-0.012); Nucleated Red Blood Cells Perc 0.0 % (0.0-0.2); Platelet Count Result 448 k/mm3 (150-375); Red Blood Count 4.27 M/mm3 (4.2-5.4); White Blood Count 8.1 K/mm3 (4.5-10.0)
--- OUTSIDE RECORDS SUMMARY | 2024-11-01 11:21 | XMS_ITS | Clinical Summary ---
Author Organization [facility] Address [address] [place] [address] Care Team Providers Care Blow Molding Machine Tender Name Role Phone Fina Bowles MD Primary Care Provider [phone] Allergies Active Allergy Reactions Criticality Noted Date Comments Cephalexin Hives High 02/11/2024 Sulfamethoxazole-Trimethoprim Hives High 2023 Medications Ozempic 2 mg/dose (8 mg/3 mL) Pen Injector ADMINISTER 2 MG UNDER THE SKIN WEEKLY Active metFORMIN (GLUCOPHAGE XR) 500 mg Extended Release 24 hour tablet Take 1 Tablet by mouth 2 times daily. Active spironolactone (ALDACTONE) 25 mg tablet Take 1 Tablet by mouth daily. Active citalopram (CeleXA) 20 mg tablet Take 20 mg by mouth daily. Active cholecalciferol 1,250 mcg (50,000 unit) Capsule Take 50,000 Units by mouth every 7 days. Active Active Problems No known active problems Encounters Date Type Department Care Team Description 10/26/2024 External Device Data [facility] ABSTRACTION Provider, Abstract 10/25/2024 External Device Data [facility] ABSTRACTION Provider, Abstract 10/05/2024 External Device Data [facility] ABSTRACTION Provider, Abstract 10/04/2024 External Device Data [facility] ABSTRACTION Provider, Abstract 09/20/2024 External Device Data [facility] ABSTRACTION Provider, Abstract 09/13/2024 External Device Data [facility] ABSTRACTION Provider, Abstract 09/06/2024 External Device Data [facility] ABSTRACTION Provider, Abstract 08/11/2024 External Device Data [facility] ABSTRACTION Provider, Abstract 08/10/2024 External Device Data [facility] ABSTRACTION Provider, Abstract 08/09/2024 External Device Data [facility] ABSTRACTION Provider, Abstract [...] Sex Assigned at Female 02/15/2024 5:10 PM SHRINK PIT OPERATOR Legal Sex Female 11:44 AM CDT Gender Identity Female 02/15/2024 5:10 PM SHRINK PIT OPERATOR Sexual Orientation Not on file Last [...] 3:35 PM CDT Height 162.6 cm (5' 4) 02/11/2024 3:13 PM SHRINK PIT OPERATOR Body Mass Index 39.2 02/11/2024 3:13 PM SHRINK PIT OPERATOR Plan of Treatment Upcoming Encounters Date Type Department Care Team (Late st Contact Info) Description 11/03/2024 3:45 PM CDT Office Visit [facility] - [place] [address] [facility] [facility] [address] [place] [address] Suraj Denise MD [address] [facility] [facility] [address] [place] [address] Health Maintenance Due Date Last Done Comments Pre-Diabetes and Diabetes Screening 1989 HPV VACCINES (1 - 3-dose series) 02/15/2004 DTAP/TDAP/TD VACCINES (1 - Tdap) 02/15/2008 HEPATITIS B VACCINES (1 of 3 - 19+ 3-dose series) 01/22 HPV/Cotest (21-29) 2010 CERVICAL CANCER SCREENING 2019 HPV/Cotest (30-65) 2019 PAP SMEAR 2019 Preventative Visit- Commercial 03/23/2024 INFLUENZA VACCINE (#1) 2024 Insurance [facility] [place] [id number] Care Teams Blow Molding Machine Tender Relationship Specialty Start Date End Date Fina Bowles MD [address] [place] [id number] PCP - General Family Practice 03/10/24
--- OUTSIDE RECORDS SUMMARY | 2024-11-01 11:21 | XMS_ITS | Clinical Summary ---
Author Organization [facility] [address] Address [address] [place] [id number] Care Team Providers Care Rental Management Trainee Name Role Phone Elving-Fina Poole MD Primary [...] on file Legal Sex Female 4:15 PM CLINIC BUSINESS MANAGER Gender Identity Not on file Sexual Orientation Not on file Obstetrics History Last Filed Vital Signs Vital Sign Reading Time Taken Comments Blood Pressure 122/86 03/25/2021 10:28 AM CLINIC BUSINESS MANAGER Pulse 85 03/25/2021 10:28 AM CLINIC BUSINESS MANAGER Temperature 36.9 C (98.4 F) 03/25/2021 10:28 AM CLINIC BUSINESS MANAGER Respiratory Rate 16 03/25/2021 10:28 AM CLINIC BUSINESS MANAGER Oxygen Saturation 97% 03/25/2021 10:28 AM CLINIC BUSINESS MANAGER Inhaled Oxygen Concentration - - Weight 135.2 kg (298 lb) 03/25/2021 10:28 AM CLINIC BUSINESS MANAGER Height 162.6 cm (5' 4) 03/25/2021 10:28 AM CLINIC BUSINESS MANAGER Body Mass Index 51.15 03/25/2021 10:28 AM CLINIC BUSINESS MANAGER Plan of Treatment Not on file Insurance [facility] [employer] Care Teams Rental Management Trainee Relationship Specialty Start Date End Date Fina Jimenez MD [address] [place] [id number] PCP - General Family Medicine 03/25/21
[2024-11-01 11:40] LABS: Iron 105 ug/dL (37-170)
[2024-11-01 11:49] LABS: Percent Iron Saturation 31 % (20-50)
[2024-11-01 12:21] LABS: Ferritin 20.00 ng/mL (6.24-137)
== END 2024-11-01 10:34 | disposition home or self-care (01) ==
LOC: ANHLAB 10:35
PROVIDERS: PCP Family Medicine; Visit Provider Internal Medicine Hematology & Oncology
DX: D64.9 Anemia, unspecified (principal)
CPT/HCPCS: 36415; 82728; 83540; 83550; 85025